=== PATIENT | male | born 1955 | race Caucasian/White ===

== ENCOUNTER 2019-09-30 15:32 | Outpatient (CLI) | payer BC, SELFPAY ==
--- NOTE | 2019-09-30 15:44 | USCV_ITS ---
DinoraSaúl nielsen Age: 64 Gender: M : 1955 Exam Date: 09/30/2019 15:53 Ordering Phys: Bridger Alfred MD Technologist: Varinder Gomez Exam Location[place] [facility] [place]ication: MURMUR BP: 148 / 80 HR: 90 Rhythm: Sinus Technical Quality: Good MEASUREMENTS (Male / Female) Normal Values 2D ECHO LV Diastolic Diameter PLAX 4.0 cm 4.2 - 5.9 / 3.9 - 5.3 cm LV Systolic Diameter PLAX 2.1 cm IVS Diastolic Thickness 1.1 cm 0.6 - 1.0 / 0.6 - 0.9 cm IVS Systolic Thickness 1.6 cm LVPW Diastolic Thickness 1.0 cm 0.6 - 1.0 / 0.6 - 0.9 cm LVPW Systolic Thickness 1.6 cm LVOT Diameter 2.0 cm LV Ejection Fraction 2D Teich 78.5 % LV Ejection Fraction MOD 2C 56.7 % LV Ejection Fraction 2C AL 56.6 % LA Diameter 3.6 cm LA Width 4.4 cm LA Height 5.2 cm RA Width 4.3 cm RA Height 4.7 cm Aorta at Sinotubular Diameter 2.5 cm M-MODE LV Diastolic Diameter MM 5.1 cm 4.2 - 5.9 / 3.9 - 5.3 cm LV Systolic Diameter MM 2.9 cm LV Ejection Fraction MM Teich 73.6 % IVS Diastolic Thickness MM 1.2 cm 0.6 - 1.0 / 0.6 - 0.9 cm IVS Systolic Thickness MM 1.5 cm LVPW Diastolic Thickness MM 1.3 cm 0.6 - 1.0 / 0.6 - 0.9 cm LVPW Systolic Thickness MM 1.8 cm RV Diastolic Diameter MM 1.7 cm Aortic Annulus Diameter 3.6 cm LA Ao Ratio MM 1.0 MV E Point Septal Separation 1.1 cm DOPPLER AV Peak Velocity 244.0 cm/s LVOT Peak Velocity 119.0 cm/s AV Area Cont Eq vti 1.6 cm squared AV Area Cont Eq pk 1.6 cm squared MV Area PHT 5.0 cm squared Mitral E to A Ratio 1.1 MV E' Velocity 9.0 cm/s Mitral E to MV E' Ratio 10.1 Mitral E to LV E' Lateral Ratio 10.1 Mitral E to LV E' Septal Ratio 10.1 TR Peak Velocity 221.0 cm/s TR Peak Gradient 19.6 mmHg TV Peak E Velocity 116.0 cm/s Right Atrial Pressure 3.0 mmHg Pulmonary Artery Systolic Pressu 22.5 mmHg FINDINGS Left Ventricle Normal left ventricular size, systolic function and mildly increased wall thickness, with no regional wall motion abnormalities. Left ventricular ejection fraction is estimated at 70 %. Normal diastolic function. Right Ventricle Normal right ventricular size and systolic function. Right ventricular systolic pressure 22.5 mmHg. Right Atrium Normal right atrial size. Left Atrium Normal left atrial size. Mitral Valve Moderate mitral annular calcification. No mitral valve stenosis. Trace mitral valve regurgitation. Aortic Valve Moderately thickened and calcified trileaflet aortic valve. Mild aortic valve stenosis, peak velocity 2.4 m/s, peak gradient 24 mmHg, mean gradient 10.8 mmHg, MYRNA 1.6 cm squared. No aortic valve regurgitation. Tricuspid Valve Structurally normal tricuspid valve. No tricuspid valve stenosis. Trace tricuspid valve regurgitation. Pulmonic Valve Pulmonic valve not well visualized. Trace pulmonary valve regurgitation. Pericardium No pericardial effusion. Aorta Normal size aortic root and proximal ascending aorta. CONCLUSIONS 1. Normal left ventricular size and systolic function with no regional wall motion abnormalities. Left ventricular ejection fraction is estimated at 70 %. Normal diastolic function. 2. Normal right ventricular size and systolic function. 3. Pulmonary artery pressure estimated at 23 mmHg. 4. Mild aortic valve stenosis, peak velocity 2.4 m/s, peak gradient 24 mmHg, mean gradient 10.8 mmHg, MYRNA 1.6 cm squared. 5. No prior similar studies to compare. Fatmata Mahoney MD (Electronically Signed) Final Date: 30 September 2019 17:14 S
== END 2019-09-30 15:33 | disposition home or self-care (01) ==
LOC: RAD 15:42
PROVIDERS: Family Provider Family Medicine; PCP Family Medicine; Visit Provider Family Medicine
DX: I08.3 Combined rheumatic disorders of mitral, aortic and tricuspid valves (principal); R01.1 Cardiac murmur, unspecified
CPT/HCPCS: 93306

== ENCOUNTER 2019-09-30 15:34 | Outpatient (REF) | payer SELFPAY ==
[2019-09-30 19:14] LABS: Chol HDL Ratio 4.54 mg/dL (1.0-5.00); Cholesterol 168 mg/dL (0-200); Glucose 252 mg/dL (65-115); HDL Cholesterol 37 mg/dL (60-100); LDL Cholesterol Calculated 89 mg/dL (50-129); LDL HDL Ratio 2.41 RATIO (0.00-3.22); Triglycerides 208 mg/dL (0-150)
[2019-09-30 21:24] LABS: Estmated Average Glucose 217; Hemoglobin A1C 9.2 % (4.0-6.0)
== END 2019-09-30 15:35 | disposition home or self-care (01) ==
LOC: LAB 15:34
PROVIDERS: Family Provider Family Medicine; PCP Family Medicine; Visit Provider Dermatology
DX: Z13.9 Encounter for screening, unspecified (principal)
CPT/HCPCS: 80061; 82947; 83036

== ENCOUNTER 2020-03-22 08:58 | Outpatient (CLI) | payer BC, SELFPAY ==
--- NOTE | 2020-03-22 09:02 | XR_ITS ---
WS: [id number] PROCEDURE: XR chest 2V* [id number] CLINICAL INFORMATION: CHEST PAIN, ATYPICAL, ABDOMINAL PAIN EPIGASTRIC COMPARISON: None. FINDINGS: Heart: Cardiomegaly. Aortic calcification. Lungs: Lungs are clear. No consolidation or pleural fluid. Moderate chronic emphysematous changes. Sl ight atelectasis left lower lobe. Bones: Hypertrophic changes thoracic spine. XR/XR chest 2V* [id number] IMPRESSION: Moderate chronic emphysematous changes. Slight atelectasis left lower lobe. No focal pneumonia.
== END 2020-03-22 08:59 | disposition home or self-care (01) ==
LOC: RADWPI 09:01
PROVIDERS: Family Provider Family Medicine; PCP Family Medicine; Visit Provider Family Medicine
DX: R10.13 Epigastric pain (principal); R07.89 Other chest pain; J98.11 Atelectasis
CPT/HCPCS: 71046

== ENCOUNTER 2020-03-29 07:12 | Outpatient (CLI) | payer BC, SELFPAY ==
--- NOTE | 2020-03-29 08:02 | US_ITS ---
WS: [id number] ULTRASOUND ABDOMEN LIMITED CLINICAL INFORMATION: ABDOMINAL PAIN, EPIGASTRIC COMPARISON: None. FINDINGS: Technically difficult examination due to body habitus. Liver Size: Upper limits of normal Craniocaudal length: 16.2 cm. Echogenicity: Normal. Surface nodularity: None. Mass (size and location): None. Bile ducts Intrahepatic ducts: Normal. Common bile duct diameter: 0.5 cm. Gallbladder Sludge/sludge ball Gallstones: None. Gallbladder sludge: Present Gallbladder wall thickenin.3 mm Pericholecystic fluid: None. Sonographic Keita sign: Absent. Pancreas Normal as visualized. Right kidney: Normal. Hydronephrosis: None. Size: 12.8 cm x 4.7 cm x 6.0 cm. Abdominal aorta and IVC Visualized portions are normal. Ascites: None. US/US gall bladder 30056 IMPRESSION: 1. Gallbladder sludge/sludge ball. Mild gallbladder wall thickening. Normal co mmon bile duct. 2. Mild hepatomegaly 3. No hydronephrosis in right kidney.
== END 2020-03-29 07:13 | disposition home or self-care (01) ==
LOC: RAD 07:14
PROVIDERS: PCP Family Medicine; Visit Provider Family Medicine
DX: R10.13 Epigastric pain (principal); R07.89 Other chest pain; R16.0 Hepatomegaly, not elsewhere classified
CPT/HCPCS: 76705

== ENCOUNTER 2020-04-14 06:46 | Outpatient (CLI) | payer BC, SELFPAY ==
[2020-04-14 06:54] VITALS: BMI 32.5
--- NOTE | 2020-04-14 06:55 | ECG_ITS ---
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 Interpretive Statements NAME OF STUDY: EXERCISE SESTAMIBI STRESS TEST INDICATION: [Chest Pain, ] Procedure: At the baseline, the blood pressure was 166/88 mmHg and heart rate of 89 Bpm. The electrocardiogram showed normal sinus rhythm, normal axis. Patient exercised for a total of 5 minutes and 16 seconds on Mars protocol. He achieved 7 mets and reached 93% (146bpm)of maximum predicted heart rate. Heart rate at the end of stress phase was 145 bpm, oxygen saturation 93% with a blood pressure of 215/87 mmHg. The EKG at peak infusion revealed sinus tachycardia with no significant ST T wave changes. The blood pressure at the end of recovery phase was 167/89 mmHg, oxygen saturation 98 % with a heart rate of 102 bpm. During recovery occasional PVCs were noted. Conclusions,: 1. Normal EKG response to exercise 2. No exercise-induced chest pain cardiac arrhythmias. 3. Hypertensive blood pressure response and heart rate response. 4. Sestamibi/sestamibi perfusion scan pending: See separate report. Electronically Signed On 04-18-2020 11:34:18 CDT by Ed Jean M.D. [email or web address]
--- NOTE | 2020-04-14 07:02 | NMCV_ITS ---
NM olive perf SPECT r/s* [id number] Saúl Farias Age: 65 Gender: M : 1955 Exam Date: 04/14/2020 07:49 Ordering Phys: Bridger Alfred MD Technologist: SHARI Murphy Exam Location: [facility] Indications: CHEST PAIN STRESS TEST Please see separate stress test report in [facility] for full findings IMAGE PROTOCOL Rest/Stress 1 Exercise Day Radiopharmaceutical Dose (mCi) Administration Site Administered by Rest: Tc-99m 10.7 IV SHARI Hicks Sestamibi Stress:Tc-99m 32.9 IV SHARI Murphy Sestamijonathan Rest: 14-Apr-2020 60 Discovery 630 Stress: 14-Apr-2020 15 Discovery 630 Radiopharmaceutical was injected at 88 % maximum heart rate. Images obtained in supine and prone position. SPECT RESULTS Technical Quality: Excellent Raw Data Analysis: Normal Image Corrections: No attenuation or motion correction applied Summed Stress Score: 0 Summed Rest Score: 0 Summed Difference Score: 0 PERFUSION FINDINGS Small area of slightly decreases uptake was noted in the mid and apical inferior wall region, with no significant reversibility. FUNCTIONAL RESULTS (calculated via Gated SPECT) Stress Image LV EF (%): 72 Stress EDV (mL):110 TID: 1 Stress ESV (mL):31 FUNCTIONAL FINDINGS: Segmental wall motion analysis revealing no gross wall motion abnormalities. IMPRESSIONS #1. Myocardial perfusion imaging revealing a small area of slightly decreased persistent tracer uptake in the inferior wall region, most likely represent attenuation artifacts. #2. Normal LV ejection fraction 72%. #3. LV wall motion analysis revealing no gross wall motion normalities. #4. Normal LV volume. No significant coronary ischemia, based on the above findings Dr Jose De Jesus Mckeon MD FAC (Electronically Signed) Final Date: 14 April 2020 17:45 S
[2020-04-14 07:21] LABS: Basophils % 0.5 %; Eosinophils # 0.1 10^3/uL (0.0-0.8); Eosinophils % 2.6 %; Hematocrit 42.4 % (42.0-52.0); Hemoglobin 14.5 g/dL (11.7-16.6); Lymphocytes # 1.3 10^3/uL (0.8-4.8); Lymphocytes % 30.9 %; Mean Corpuscular HGB Conc 34.2 g/dL (30.0-36.0); Mean Corpuscular Hemoglobin 32.6 pg (28.0-34.0); Mean Corpuscular Volume 95.3 fL (80-94); Mean Platelet Volume 11.7 fL (7.4-10.4); Monocytes # 0.4 10^3/uL (0.2-0.9); Monocytes % 9.3 %; Neutrophils # 2.44 10^3/uL (1.8-7.7); Neutrophils % 56.5 %; Nucleated Red Blood Cells % 0 %; Platelet Count 77 10^3/cmm (130-400); Red Blood Count 4.45 10^6/uL (4.1-5.3); Red Cell Distribution Width 12.4 % (12.1-15.1); White Blood Count 4.3 10^3/uL (4.0-10.0)
[2020-04-14 07:58] LABS: Alanine Aminotransferase 21 U/L (0-41); Albumin Level 3.7 g/dL (3.5-5.2); Alkaline Phosphatase 71 IU/L (40-130); Anion Gap 12.8 (5-19); Aspartate Amino Transferase 32 U/L (0-40); Blood Urea Nitrogen 10 mg/dL (8-23); Calcium 9.7 mg/dL (8.5-10.5); Carbon Dioxide 27 mmol/L (22-29); Chloride 102 mmol/L (98-107); Globulin 3.6 g/dL (1.3-4.6); Glomerular Filtration Rate 135.6 mL/min (90-130); Glucose 140 mg/dL (65-115); Lipase 41 U/L (13-60); Osmolality Calculated 284 mOsm/kg (285-295); Potassium 3.8 mmol/L (3.5-5.1); Sodium 138 mmol/L (136-145); Total Bilirubin 0.9 mg/dL (0.15-1.2); Total Protein 7.3 g/dL (6.6-8.7)
[2020-04-14 09:06] VITALS: BP 164/89; PULSE 102
== END 2020-04-14 06:47 | disposition home or self-care (01) ==
PROVIDERS: Surgery; PCP Family Medicine; Visit Provider Family Medicine
DX: R10.13 Epigastric pain (principal); R07.89 Other chest pain
CPT/HCPCS: 78452; 80053; 83690; 85025; 93017; A9500

== ENCOUNTER → 2020-04-15 09:13 | Outpatient (BNVA) | payer BC, SELFPAY | PROVIDERS: PCP Family Medicine; Visit Provider Internal Medicine | DX: Z12.31 Encounter for screening mammogram for malignant neoplasm of breast (principal) | CPT/HCPCS: 87635 ==

== ENCOUNTER 2020-04-20 10:12 | Day surgery (SDC) | payer BC, SELFPAY ==
[2020-04-19 10:29] VITALS: BMI 32.5
[2020-04-20] VITALS (8 sets, daily range): BP systolic 143–197; BP diastolic 76–99; PULSE 78–105; RESP 15–23; TEMP 36.3–36.7; O2SAT 92–98
[2020-04-20] MEDS: sodium chloride 0.9% 1,000 ML 30 ML IV (10:45)
--- NOTE | 2020-04-20 10:59 | W.PM.OPSUD ---
Surgery/Procedure H&P Update DATE OF PROCEDURE: April 20, 2020 DATE H&P PERFORMED: 04/12/20 H&P UPDATE INFORMATION: I have reviewed H&P completed within last 30 days, I have examined patient prior to procedure and No changes to prior documentation PREOP DIAGNOSIS: Cholelithiasis PLANNED PROCEDURE: Operation Date: 04/20/20 13:30 Proposed Procedures p Laparoscopic Cholecystectomy 65191 K82.9(Not Applicable) - Reji Rodríguez MD
[2020-04-20 11:03] LABS: Glucose Point of Care 158 mg/dL (70-110)
--- NOTE | 2020-04-20 11:03 | ANES.PREANE2 ---
Pre-Anesthetic Assessment Pre-Anesthetic Assessment: Height/Weight: Height 1.73 m Weight 97.069 kg Temp Pulse Resp BP Pulse Ox 97.8 F 82 18 167/76 97 04/20/20 10:33 04/20/20 10:33 04/20/20 10:33 04/20/20 10:33 04/20/20 10:33 Preop Diagnosis: Cholelithiasis Proposed Procedure: Operation Date: 04/20/20 13:30 Proposed Procedures p Laparoscopic Cholecystectomy 29439 K82.9(Not Applicable) - Reji Rodríguez MD Familial anesthetic complications: None Last intake: Intake Last Liquid Date 04/19/20 Last Liquid Time 17:00 Last Solid Date 04/19/20 Last Solid Time 17:00 Social: Social History: No alcohol and No tobacco Exam: Pre-Anes Outpt Exam: alert, oriented x 3, clear to auscultation bilaterally and regular rate & rhythm Airway: Cervical ROM: WNL MP: 4 Dentition: Full Pulmonary: Pulmonary: None reported : Comments: kidney stones GI: GI: GERD (prilosec) Metabolic: Metabolic: DM and Morbid obesity Anesthetic Plan: ASA status: 2 Anesthesia: General Risk of > 500 ml blood loss (7ml/kg in children): No PFSH Anesthesia PFSH: Medical History Diabetes mellitus H/O renal calculi Surgical History H/O circumcision H/O skin graft left foot H/O umbilical hernia repair H/O vasectomy Family History Other CAD (coronary artery disease) Cancer Diabetes Hypertension Denies family history of Anesthesia complication Bleeding disorder Social History Smoking and tobacco status: former smoker Alcohol intake: never Household members: spouse Marital status: Current occupational status: retired History of recent travel: No Data Anesthesia Other Labs: Laboratory Results - last 48 hr 04/20/20 10:59 POC Glucose 158 Cardiac Studies: No Data to Display
--- NOTE | 2020-04-20 12:42 | PM.OP ---
Operative Report Date of procedure: April 20, 2020 Pre-op Diagnosis: Cholelithiasis Post-op Diagnosis: Cholelithiasis Chronic cholecystitis Macronodular liver with multiple dilated veins near the gallbladder neck Procedure Done: Laparoscopic cholecystectomy Laparoscopic liver biopsy Pathology: Gallbladder Liver biopsy Surgeon: Reji Rodríguez Anesthesia: General Estimated blood loss (mL): 100 Condition: stable Disposition: PACU Procedure: The patient was taken to the operating room and was intubated under general anesthesia. After the antibiotic had been administered, the abdomen was prepped and draped in a sterile manner. Using a #15 blade, a 1 centimeter infraumbilical curvilinear incision was made and using an open Leticia technique the peritoneal cavity was entered. A 10 millimeter port was placed and 15 millimeters of pneumoperitoneum was created. A 10 millimeter, 30 degrees scope was then introduced. Three 5 millimeter ports were placed in the epigastric, midclavicular and the anterior axillary line two fingerbreadths below the costal margin on the right side under the direct visualization. There was bleeding noted in the umbilicus and therefore a 5 mm camera was placed and examination of the umbilical port revealed omentum adherent to the abdominal wall from prior hernia repair and there was a arterial bleeder noted which was controlled with 10 mm clips. Ratcheted forceps were introduced into the lateral most port and was used to retract the fundus of the gallbladder cephalad and using forceps the infundibulum of the gallbladder was retracted laterally. Using L-hook cautery the peritoneum overlying the Calot's triangle was opened medially and laterally until the cystic duct and the cystic artery were skeletonized. There was multiple dilated veins and there was generalized oozing which was controlled with cautery, dissection was carried along the body of the gallbladder and after ensuring critical view of safety, 4 clips applied on the cystic duct and 3 clips applied on the cystic artery and cut leaving, 3 clips on the remaining portion of the duct and 2 clips on the remaining portion of the artery. The rest of the gallbladder was dissected off the liver using L-hook cautery. There was no bleeding or bile leaking noted from the gallbladder fossa and the clips appeared to be in place. Since there was significant oozing from the gallbladder fossa a 4 x 8 cm Surgicel was placed. Using electrocautery a 2 cm segment of liver was obtained due to the macronodular liver noted during surgery which was concerning for cirrhosis. An EndoCatch bag was introduced to remove the gallbladder and the liver specimen. All the ports were removed under direct visualization and there was no bleeding noted from the port sites. The fascia of the umbilicus was closed using [id number] 0 Vicryl sutures and the subcutaneous tissue was approximated using 3-0 Vicryl sutures. The skin at all four ports were closed using 4-0 Monocryl and Dermabond. A total of 10 millimeters of 0.5% Marcaine was infiltrated around the port sites. The patient was stable throughout the procedure.
[2020-04-20] MEDS: labetalol 5 mg/mL SDV 20mL IVP (12:52)
--- NOTE | 2020-04-20 12:56 | SUR.PHASEI ---
1249 PATIENT TO PACU FROM OR. RR EVEN AND UNLABORED. SPO2 96% ON SIMPLE MASK AT 8L. 3 INCISIONS TO ABDOMEN, CDI.
--- NOTE | 2020-04-20 13:15 | SUR.PHASEI ---
1310 PATIENT TO OPS. DENIES PAIN OR NAUSEA. 3 INCISION TO ABDOMEN, CDI.
[2020-04-20] MEDS: HYDROcodone-acetaminophen 5-325 mg Tablet 1 TAB PO (13:40)
--- NOTE | 2020-04-20 16:00 | ANE.PACU2 ---
Inpatient post-anesthesia follow up: Airway intact: Yes Vital signs: Temperature 98.0 F Pulse Rate 78 Respiratory Rate 18 Blood Pressure 144/76 Pulse Oximetry 93 Oxygen Delivery Me thod Room Air Oxygen Flow Rate 8 Fraction of Inspir ed Oxygen Hydration adequate: Yes Nausea and vomiting: No Pain level: 2 Mental status: Baseline
== END 2020-04-20 14:00 | disposition home or self-care (01) ==
PROVIDERS: PCP Family Medicine; Visit Provider Surgery
PROC: 0FT44ZZ Resection of Gallbladder, Percutaneous Endoscopic Approach (ICD-10-PCS; CPT 47562; principal; 2020-04-20 12:05)
DX: K81.1 Chronic cholecystitis (principal); K74.60 Unspecified cirrhosis of liver; E11.9 Type 2 diabetes mellitus without complications; E66.01 Morbid (severe) obesity due to excess calories; Z68.32 Body mass index [BMI] 32.0-32.9, adult; Z87.891 Personal history of nicotine dependence; Z79.84 Long term (current) use of oral hypoglycemic drugs
CPT/HCPCS: 47000; 47562; 12345; 36416; 82962; 88304; 88307; J0131; J0690; J2405; J2704; J2710; J3010; J3490; J7030

== ENCOUNTER → 2020-06-03 09:36 | Outpatient (BNVA) | payer BC, SELFPAY | PROVIDERS: PCP Family Medicine; Visit Provider Surgery | DX: Z12.11 Encounter for screening for malignant neoplasm of colon (principal) | CPT/HCPCS: 87635 ==

== ENCOUNTER 2020-06-07 06:52 | Day surgery (SDC) | payer BC, SELFPAY ==
[2020-06-07 07:02] VITALS: BP 157/82; PULSE 95; RESP 18; TEMP 36.3; O2SAT 98
[2020-06-07] MEDS: sodium chloride 0.9% 1,000 ML 30 ML IV (07:21)
[2020-06-07 07:23] LABS: Glucose Point of Care 140 mg/dL (70-110)
--- NOTE | 2020-06-07 07:23 | ANES.PREANE2 ---
Pre-Anesthetic Assessment Pre-Anesthetic Assessment: Height/Weight: Height 1.73 m Weight 97.069 kg Temp Pulse Resp BP Pulse Ox 97.3 F L 95 18 157/82 98 06/07/20 07:02 06/07/20 07:02 06/07/20 07:02 06/07/20 07:02 06/07/20 07:02 Preop Diagnosis: screening Proposed Procedure: Operation Date: 06/07/20 08:00 Proposed Procedures p EGD 47710 90200 R10.12 Z12.11(Not Applicable) - Reji Rodríguez MD s Colonoscopy 33604 93726 R10.12 Z12.11(Not Applicable) - Reji Rodríguez MD Familial anesthetic complications: None Was Beta Amanda taken within 24 hours: N/A Last intake: Intake Last Liquid Date 06/06/20 Last Liquid Time 20:00 Last Solid Date 06/05/20 Last Solid Time 20:00 Social: Social History: No alcohol and No tobacco Exam: Pre-Anes Outpt Exam: alert, oriented x 3, clear to auscultation bilaterally and regular rate & rhythm Airway: Cervical ROM: WNL MP: 2 Dentition: Full Hepatic: Hepatic: Cirrohsis (?seen on imaging) GI: GI: GERD Metabolic: Metabolic: DM Anesthetic Plan: ASA status: 2 Anesthesia: MAC Risk of > 500 ml blood loss (7ml/kg in children): No Meds/Allergies Current Medications: Current Medications Generic Name Dose Route Start Last Admin Trade Name Freq PRN Reason Stop Dose Admin Sodium Chloride 1,000 mls @ 30 ml s/hr 06/07/20 07:15 06/07/20 07:21 Sodium Chloride 0.9% IV 30 mls/hr .Q24H JAMES Administration PFSH Anesthesia PFSH: Medical History (Updated 05/10/20 @ 09:56 by Reji Rodríguez MD) Diabetes mellitus H/O renal calculi Macronodular cirrhosis Surgical History (Updated 05/10/20 @ 09:56 by Reji Rodríguez MD) H/O circumcision H/O skin graft left foot H/O umbilical hernia repair H/O vasectomy Status post laparoscopic cholecystectomy (04/20/20) with liver biopsy Family History Other CAD (coronary artery disease) Cancer Diabetes Hypertension Denies family history of Anesthesia complication Bleeding disorder Social History Smoking and tobacco status: former smoker Alcohol intake: never Household members: spouse Marital status: Current occupational status: retired History of recent travel: No Data Anesthesia Other Labs: Laboratory Results - last 48 hr 06/07/20 07:18 POC Glucose 140 Cardiac Studies: No Data to Display
--- NOTE | 2020-06-07 08:10 | P.HP_ITS ---
Same Day Surgery H&P Indication for Procedure/HPI DATE OF PROCEDURE: June 07, 2020 CHIEF COMPLAINT/INDICATIONFOR SURGICAL PROCEDURE: cirrhosis and colonoscopy PREOP DIAGNOSIS: screening PLANNED PROCEDRUE: Operation Date: 06/07/20 08:00 Proposed Procedures p EGD 21764 17823 R10.12 Z12.11(Not Applicable) - Reji Rodríguez MD s Colonoscopy 63149 31861 R10.12 Z12.11(Not Applicable) - Reji Rodríguez MD Medications/Allergies* Home Medications Medication Instructions Recorded Confirmed Type glimepiride 2 mg tablet 2 mg PO BID tab 04/12/20 06/07/20 History metformin 1,000 mg tablet 1,000 mg PO BID 04/12/20 06/07/20 History omeprazole 20 mg capsule,delayed 20 mg PO BID 04/12/20 06/07/20 History release Allergies/Adverse Reactions Allergy/AdvReac Type Severity Reaction Status Date / Time No Known Allergies Allergy Verified 06/07/20 07:12 Current Medications: Generic Name Dose Route Start Last Admin Trade Name Freq PRN Reason Stop Dose Admin Sodium Chloride 1,000 mls @ 30 mls/hr 06/07/20 07:15 06/07/20 07:21 Sodium Chloride 0.9% IV 30 mls/hr .Q24H JAMES Administration Pertinent History/Comorbid Conditions* Medical History (Updated 05/10/20 @ 09:56 by Reji Rodríguez MD) Diabetes mellitus H/O renal calculi Macronodular cirrhosis Surgical History (Updated 05/10/20 @ 09:56 by Reji Rodríguez MD) H/O circumcision H/O skin graft left foot H/O umbilical hernia repair H/O vasectomy Status post laparoscopic cholecystectomy (04/20/20) with liver biopsy Family History (Updated 04/12/20 @ 14:53 by Sugar Dill LPN) Diabetes CAD (coronary artery disease) Cancer Hypertension Denies family history of Anesthesia complication Bleeding disorder Social History Smoking and tobacco status: former smoker Alcohol intake: never Household members: spouse Marital status: Current occupational status: retired History of recent travel: No Pertinent Exam Findings alert, oriented x 3 and regular rate & rhythm Recommendations Surgery/Procedure today Coding Level of Care Code Acute 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
[2020-06-07 09:05] VITALS: BP 148/81; PULSE 74; RESP 18; TEMP 36.1; O2SAT 99
--- NOTE | 2020-06-07 09:30 | ANE.PACU2 ---
Inpatient post-anesthesia follow up: Airway intact: Yes Vital signs: Temperature 97 F Pulse Rate 74 Respiratory Rate 18 Blood Pressure 148/81 Pulse Oximetry 99 Oxygen Delivery Me thod Room Air Oxygen Flow Rate Fraction of Inspir ed Oxygen Hydration adequate: Yes Nausea and vomiting: No Pain level: 1 Mental status: Baseline
== END 2020-06-07 09:38 | disposition home or self-care (01) ==
PROVIDERS: PCP Family Medicine; Visit Provider Surgery
PROC: 0DJ08ZZ Inspection of Upper Intestinal Tract, Via Natural or Artificial Opening Endoscopic (ICD-10-PCS; CPT 43235; principal; 2020-06-07 08:00)
PROC: 0DJD8ZZ Inspection of Lower Intestinal Tract, Via Natural or Artificial Opening Endoscopic (ICD-10-PCS; CPT 45378; 2020-06-07 08:00)
DX: Z12.11 Encounter for screening for malignant neoplasm of colon (principal); I85.00 Esophageal varices without bleeding; K29.70 Gastritis, unspecified, without bleeding; D12.0 Benign neoplasm of cecum; D12.4 Benign neoplasm of descending colon; D12.3 Benign neoplasm of transverse colon; K57.30 Diverticulosis of large intestine without perforation or abscess without bleeding; K64.8 Other hemorrhoids; E11.9 Type 2 diabetes mellitus without complications; Z79.84 Long term (current) use of oral hypoglycemic drugs
CPT/HCPCS: 12345; 36416; 43235; 45385; 82962; 88305; J2704; J3010; J7030

== ENCOUNTER → 2021-08-10 14:57 | Outpatient (BNVA) | payer MEDICARE, BC, SELFPAY | PROVIDERS: PCP Family Medicine; Visit Provider Surgery | DX: K63.5 Polyp of colon (principal) | CPT/HCPCS: 87635 ==

== ENCOUNTER 2021-08-16 07:48 | Day surgery (SDC) | payer MEDICARE, SELFPAY ==
[2021-08-14 10:28] VITALS: BMI 33.4
--- NOTE | 2021-08-16 08:00 | ANES.PREANE2 ---
Pre-Anesthetic Assessment Pre-Anesthetic Assessment: Height/Weight: Height 1.73 m Weight 99.79 kg Preop Diagnosis: screening Proposed Procedure: Operation Date: 08/16/21 09:15 Proposed Procedures p Colonoscopy 14007 Z12.11(Not Applicable) - Reji Rodríguez MD Familial anesthetic complications: None Was Beta Amanda taken within 24 hours: N/A Was Clonidine taken within 24 hours: N/A Last intake: > 8 hrs Social: Social History: No alcohol and No tobacco Exam: Pre-Anes Outpt Exam: alert, oriented x 3, clear to auscultation bilaterally and regular rate & rhythm Airway: MP: 4 Dentition: Full Hepatic: Comments: cirrhosis found during gallbladder surgery Metabolic: Metabolic: DM Anesthetic Plan: ASA status: 3 Anesthesia: MAC Risk of > 500 ml blood loss (7ml/kg in children): No Other Pertinent Information: patient would like local anesthesia for IV Placement PFSH Anesthesia PFSH: Medical History (Updated 06/16/21 @ 08:51 by Reji Rodríguez MD) Colon polyps Diabetes mellitus Esophageal varices H/O renal calculi Macronodular cirrhosis Surgical History H/O circumcision H/O esophagogastroduodenoscopy (06/07/20) H/O skin graft left foot H/O umbilical hernia repair H/O vasectomy Status post colonoscopy with polypectomy (06/07/20) Status post laparoscopic cholecystectomy (04/20/20) with liver biopsy Family History Other CAD (coronary artery disease) Cancer Diabetes Hypertension Denies family history of Anesthesia complication Bleeding disorder Social History Smoking and tobacco status: former smoker Alcohol intake: never Household members: spouse Marital status: Current occupational status: retired History of recent travel: No Data Anesthesia Cardiac Studies: Echocardiogram Ultrasound 09/30/19 Sestamibi Stress Test (Cardiology) 04/14/20
[2021-08-16 08:27] VITALS: BP 168/78; PULSE 73; RESP 18; TEMP 36.2; O2SAT 99
[2021-08-16] MEDS: sodium chloride 0.9% 1,000 ML 30 ML IV (08:45)
[2021-08-16] MEDS: lidocaine 1% INJ 20 mL INTRADERMA (08:46)
--- NOTE | 2021-08-16 09:03 | W.PM.OPSFHP ---
Same Day Surgery H&P Indication for Procedure/HPI DATE OF PROCEDURE: August 16, 2021 CHIEF COMPLAINT/INDICATIONFOR SURGICAL PROCEDURE: colon polyps PREOP DIAGNOSIS: diagnostic PLANNED PROCEDRUE: Operation Date: 08/16/21 09:15 Proposed Procedures p Colonoscopy 33349 Z12.11(Not Applicable) - Reji Rodríguez MD Medications/Allergies* Home Medications Medication Instructions Recorded Confirmed Type glimepiride 2 mg tablet 2 mg PO BID tab 04/12/20 08/14/21 History metformin 1,000 mg tablet 1,000 mg PO BID 04/12/20 08/14/21 History Allergies/Adverse Reactions Allergy/AdvReac Type Severity Reaction Status Date / Time No Known Allergies Allergy Verified 08/16/21 08:16 Current Medications: Generic Name Dose Route Start Last Admin Trade Name Freq PRN Reason Stop Dose Admin Sodium Chloride 1,000 mls @ 30 mls/hr 08/16/21 08:30 08/16/21 08:45 Sodium Chloride 0.9% IV 08/17/21 08:29 30 mls/hr .Q24H JAMES Administration Lidocaine HCl 1 ml 08/16/21 08:21 08/16/21 08:46 Lidocaine 1% Inj 20 Ml INTRADERMA 1 ml PRN PRN Administration IV start Pertinent History/Comorbid Conditions* Medical History (Updated 06/16/21 @ 08:51 by Reji Rodríguez MD) Colon polyps Diabetes mellitus Esophageal varices H/O renal calculi Macronodular cirrhosis Surgical History (Updated 06/07/20 @ 09:16 by Reji Rodríguez MD) H/O circumcision H/O esophagogastroduodenoscopy (06/07/20) H/O skin graft left foot H/O umbilical hernia repair H/O vasectomy Status post colonoscopy with polypectomy (06/07/20) Status post laparoscopic cholecystectomy (04/20/20) with liver biopsy Family History (Updated 04/12/20 @ 14:53 by Sugar Dill LPN) Diabetes CAD (coronary artery disease) Cancer Hypertension Denies family history of Anesthesia complication Bleeding disorder Social History Smoking and tobacco status: former smoker Alcohol intake: never Household members: spouse Marital status: Current occupational status: retired History of recent travel: No Pertinent Exam Findings alert, oriented x 3 and regular rate & rhythm Recommendations Surgery/Procedure today Coding Level of Care Code Acute 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
--- NOTE | 2021-08-16 09:39 | PC.NURSE ---
clip and ink placed in colon at 55cm
[2021-08-16 09:50] VITALS: BP 102/63; PULSE 77; RESP 16; TEMP 36.3; O2SAT 96
[2021-08-16 09:57] VITALS: BP 121/65; PULSE 82; RESP 18; O2SAT 96
--- NOTE | 2021-08-16 13:52 | ANE.PACU2 ---
Inpatient post-anesthesia follow up: Airway intact: Yes Vital signs: Temperature 97.4 F Pulse Rate 82 Respiratory Rate 18 Blood Pressure 121/65 Pulse Oximetry 96 Oxygen Delivery Me thod Room Air Oxygen Flow Rate Fraction of Inspir ed Oxygen Hydration adequate: Yes Nausea and vomiting: No Pain level: 2 Mental status: Baseline
== END 2021-08-16 10:25 | disposition home or self-care (01) ==
PROVIDERS: PCP Family Medicine; Visit Provider Surgery
PROC: 0DJD8ZZ Inspection of Lower Intestinal Tract, Via Natural or Artificial Opening Endoscopic (ICD-10-PCS; CPT 45378; principal; 2021-08-16 09:15)
DX: Z12.11 Encounter for screening for malignant neoplasm of colon (principal); Z86.010 Personal history of colon polyps; D12.2 Benign neoplasm of ascending colon; D12.5 Benign neoplasm of sigmoid colon; D12.3 Benign neoplasm of transverse colon; K57.30 Diverticulosis of large intestine without perforation or abscess without bleeding; K64.8 Other hemorrhoids; E11.9 Type 2 diabetes mellitus without complications; Z79.84 Long term (current) use of oral hypoglycemic drugs; Z82.49 Family history of ischemic heart disease and other diseases of the circulatory system; Z83.3 Family history of diabetes mellitus; Z87.891 Personal history of nicotine dependence
CPT/HCPCS: 45380; 45385; 88305; J2704; J7030

== ENCOUNTER 2021-11-15 12:30 | Outpatient (CLI) | payer MEDICARE, SELFPAY ==
--- NOTE | 2021-11-15 12:44 | CT_ITS ---
WS: [id number] CT ABDOMEN AND PELVIS WITH CONTRAST HISTORY: Left-sided abdominal pain. Abnormal findings on colonoscopy. TECHNIQUE: Imaging performed of the abdomen and pelvis with IV contrast. Single phase imaging of the abdomen. Coronal and sagittal reformats are submitted. All CT scans at [facility] use at [address] one of these dose optimization techniques: automated exposure control; mA and/or kV adjustment per patient size (includes targeted exams where dose is matched to clinical indication); or iterative re construction. IV CONTRAST: Omnipaque 300; 95 mL IV. Oral contrast: Yes. DLP: 1218.53 mGy.cm COMPARISON: 05/01/2012 Lower thorax: Small layering RIGHT pleural effusion. Lungs are clear. Normal size heart. Small perica rdial lymph node. No hiatal hernia. Paraesophageal varices are present. Liver/biliary system: Cirrhotic appearance of the liver. Enlarged caudate lobe. The LEFT and RIGHT he patic lobes are smaller caliber. Nodularity of the surface of the liver. No hepatic mass identified o r abnormal enhancement. There is no very small caliber portal vein. The main portal vein is small cipriano iber. The RIGHT and LEFT portal veins may be occluded. No significant enhancement of adjacent varice s at the harmony hepatis. Gallbladder: Status post cholecystectomy. Pancreas: Normal size pancreas and pancreatic duct. No adjacent inflammation. Spleen: Spleen is enlarged extending over length of 15.2 cm. Massive splenic varices are noted. There are extensive spleen or renal varices identified. Splenic vein is dilated. Adrenal glands: Normal. Right kidney: Nonobstructing 2 mm calcification upper pole. Left kidney: Normal size kidney with extensive splenorenal varices noted surrounding the mid and uppe r kidney. No obstruction or solid mass. Aorta: Mild atherosclerosis with no aneurysm. Good enhancement of the proximal celiac axis and SMA. Lymphadenopathy: None. Free fluid: None. GI tract: No obstruction of the GI tract. Stomach is normally distended. No small bowel obstruction. Normal appendix. Numerous small diverticula in the descending and sigmoid colon. Abdominal wall: Small umbilical hernia. Pelvis: No free fluid or adenopathy within the pelvis. Bones: 2 mm anterolisthesis of L5. CT/CT abdomen pelvis w con* [id number] IMPRESSION: 1. Cirrhosis with portal venous hypertension. 2. Splenomegaly with numerous dilated splenorenal varices. 3. Very small caliber portal vein. Suspect partial occlusion of the portal vei n. 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 4. Distal colonic diverticulosis without acute diverticulitis. 5. Normal appendix. 6. Prior cholecystectomy. 7. Small layering RIGHT pleural effusion.
[2021-11-15] MEDS: iohexol 300 mg/mL 50 mL Btl PO (13:16)
[2021-11-15] MEDS: iohexol 300 mg/mL 100 mL Btl IV (14:34)
[2021-11-15 14:35] LABS: Blood Urea Nitrogen 14 mg/dL (8-23); Glomerular Filtration Rate 84.7 mL/min (90-130)
== END 2021-11-15 12:31 | disposition home or self-care (01) ==
LOC: RAD 12:32
PROVIDERS: PCP Family Medicine; Visit Provider Surgery
DX: K56.699 Other intestinal obstruction unspecified as to partial versus complete obstruction (principal); K74.69 Other cirrhosis of liver; R16.1 Splenomegaly, not elsewhere classified; K57.30 Diverticulosis of large intestine without perforation or abscess without bleeding; J90 Pleural effusion, not elsewhere classified; K76.6 Portal hypertension; Z90.49 Acquired absence of other specified parts of digestive tract
CPT/HCPCS: 74177; 82565; 84520

== ENCOUNTER 2021-11-22 05:41 | Day surgery (SDC) | payer MEDICARE, SELFPAY ==
[2021-11-20 14:15] VITALS: BMI 31.9
[2021-11-22 06:11] VITALS: BP 146/78; PULSE 84; RESP 18; TEMP 36.4; O2SAT 98
[2021-11-22] MEDS: sodium chloride 0.9% 1,000 ML 30 ML IV (06:16)
[2021-11-22] MEDS: lidocaine 1% INJ 20 mL INTRADERMA (06:16)
--- NOTE | 2021-11-22 06:53 | ANES.PREANE2 ---
Pre-Anesthetic Assessment Height/Weight: Height 1.73 m Weight 95.254 kg Temp Pulse Resp BP Pulse Ox 97.6 F 84 18 146/78 98 11/22/21 06:11 11/22/21 06:11 11/22/21 06:11 11/22/21 06:11 11/22/21 06:11 Preop Diagnosis: diagnostic Operation Date: 11/22/21 07:00 Proposed Procedures p Sigmoidoscopy 00860 K56.699(Not Applicable) - Reji Rodríguez MD Familial anesthetic complications: none Was Beta Amanda taken within 24 hours: N/A Was Clonidine taken within 24 hours: N/A Last intake: Intake Last Liquid Date 11/21/21 Last Liquid Time 23:30 Last Solid Date 11/20/21 Last Solid Time 17:00 Social No alcohol and No tobacco Exam alert, oriented x 3, clear to auscultation bilaterally and regular rate & rhythm Airway Submandibular: within normal limits Cervical ROM: within normal limits Mallampati: Class II Dentition: full History/ROS Other Pulmonary None reported CV/HEM Murmur None reported Hepatic Cirrhosis GI None reported Metabolic Diabetes Mellitus Musc/skel Lower Back Pain Neuropsych None reported Anesthetic Plan ASA status: 2 Anesthesia: MAC Risk of > 500 ml blood loss (7ml/kg in children): No Medications/Allergies Home Medications Medication Instructions Recorded Confirmed Last Taken Type glimepiride 2 mg tablet 2 mg PO BID tab 04/12/20 11/22/21 11/21/21 History metformin 1,000 mg tablet 1,000 mg PO BID 04/12/20 11/22/21 11/21/21 History myutyxbfrnov-nkfegacv-olobpf 1 tab PO DAILY 11/20/21 11/22/21 11/21/21 History tablet (Multivitamin 50 Plus) Allergies Allergy/AdvReac Type Severity Reaction Status Date / Time No Known Allergies Allergy Verified 11/20/21 14:17 Current Medications Generic Name Dose Route Start Last Admin Trade Name Freq PRN Reason Stop Dose Admin Sodium Chloride 1,000 mls @ 30 mls/hr 11/22/21 06:00 11/22/21 06:16 Sodium Chloride 0.9% IV 11/23/21 05:59 30 mls/hr .Q24H JAMES Administration Lidocaine HCl 1 ml 11/22/21 06:10 11/22/21 06:16 Lidocaine 1% Inj 20 Ml INTRADERMA 1 ml PRN PRN Administration IV START PFSH Anesthesia Medical History (Updated 08/22/21 @ 13:52 by Anu Vega RN) Colon polyps Diabetes mellitus Esophageal varices H/O renal calculi Macronodular cirrhosis Surgical History H/O circumcision H/O esophagogastroduodenoscopy (06/07/20) H/O skin graft left foot H/O umbilical hernia repair H/O vasectomy Status post colonoscopy with polypectomy (06/07/20) Status post colonoscopy with polypectomy (08/16/21) Status post laparoscopic cholecystectomy (04/20/20) with liver biopsy Family History Other CAD (coronary artery disease) Cancer Diabetes Hypertension Denies family history of Anesthesia complication Bleeding disorder Social History Smoking and tobacco status: former smoker Alcohol intake: never Household members: spouse Marital status: Current occupational status: retired History of recent travel: No Data Anesthesia Cardiac Studies: Echocardiogram Ultrasound 09/30/19 Sestamibi Stress Test (Cardiology) 04/14/20
--- NOTE | 2021-11-22 06:58 | W.PM.OPSFHP ---
Same Day Surgery H&P Indication for Procedure/HPI DATE OF PROCEDURE: November 22, 2021 CHIEF COMPLAINT/INDICATIONFOR SURGICAL PROCEDURE: colon polyp PREOP DIAGNOSIS: diagnostic PLANNED PROCEDURE: Operation Date: 11/22/21 07:00 Proposed Procedures p Sigmoidoscopy 52264 K56.699(Not Applicable) - Reji Rodríguez MD Medications/Allergies* Home Medications Medication Instructions Recorded Confirmed Type glimepiride 2 mg tablet 2 mg PO BID tab 04/12/20 11/22/21 History metformin 1,000 mg tablet 1,000 mg PO BID 04/12/20 11/22/21 History suxfuggsacrb-dtrihcwr-wurcvy 1 tab PO DAILY 11/20/21 11/22/21 History tablet (Multivitamin 50 Plus) Allergies/Adverse Reactions Allergy/AdvReac Type Severity Reaction Status Date / Time No Known Allergies Allergy Verified 11/20/21 14:17 Current Medications: Generic Name Dose Route Start Last Admin Trade Name Freq PRN Reason Stop Dose Admin Sodium Chloride 1,000 mls @ 30 mls/hr 11/22/21 06:00 11/22/21 06:16 Sodium Chloride 0.9% IV 11/23/21 05:59 30 mls/hr .Q24H JAMES Administration Lidocaine HCl 1 ml 11/22/21 06:10 11/22/21 06:16 Lidocaine 1% Inj 20 Ml INTRADERMA 1 ml PRN PRN Administration IV START Pertinent History/Comorbid Conditions* Medical History (Updated 06/16/21 @ 08:51 by Reji Rodríguez MD) Colon polyps Diabetes mellitus Esophageal varices H/O renal calculi Macronodular cirrhosis Surgical History (Updated 08/16/21 @ 09:47 by Reji Rodríguez MD) H/O circumcision H/O esophagogastroduodenoscopy (06/07/20) H/O skin graft left foot H/O umbilical hernia repair H/O vasectomy Status post colonoscopy with polypectomy (06/07/20) Status post colonoscopy with polypectomy (08/16/21) Status post laparoscopic cholecystectomy (04/20/20) with liver biopsy Family History (Updated 04/12/20 @ 14:53 by Sugar Dill LPN) Diabetes CAD (coronary artery disease) Cancer Hypertension Denies family history of Anesthesia complication Bleeding disorder Social History Smoking and tobacco status: former smoker Alcohol intake: never Household members: spouse Marital status: Current occupational status: retired History of recent travel: No Pertinent Exam Findings alert, oriented x 3 and regular rate & rhythm Recommendations Surgery/Procedure today Coding Level of Care Code Acute 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
--- NOTE | 2021-11-22 07:33 | ANE.PACU2 ---
Inpatient post-anesthesia follow up: Airway intact: Yes Vital signs: Temperature 97.6 F Pulse Rate 84 Respiratory Rate 18 Blood Pressure 146/78 Pulse Oximetry 98 Oxygen Delivery Me thod Room Air Oxygen Flow Rate Fraction of Inspir ed Oxygen Hydration adequate: Yes Nausea and vomiting: No Pain level: 1 Mental status: Baseline
[2021-11-22 07:34] VITALS: BP 123/77; PULSE 90; RESP 18; TEMP 36.5; O2SAT 100
[2021-11-22 07:45] VITALS: BP 141/88; PULSE 81; RESP 18; TEMP 36.2; O2SAT 98
== END 2021-11-22 08:04 | disposition home or self-care (01) ==
PROVIDERS: PCP Family Medicine; Visit Provider Surgery
PROC: 0DJD8ZZ Inspection of Lower Intestinal Tract, Via Natural or Artificial Opening Endoscopic (ICD-10-PCS; CPT 45330; principal; 2021-11-22 07:00)
DX: K56.699 Other intestinal obstruction unspecified as to partial versus complete obstruction (principal); K57.30 Diverticulosis of large intestine without perforation or abscess without bleeding; K64.8 Other hemorrhoids; D12.5 Benign neoplasm of sigmoid colon; Z79.84 Long term (current) use of oral hypoglycemic drugs; Z87.891 Personal history of nicotine dependence; Z82.49 Family history of ischemic heart disease and other diseases of the circulatory system; Z83.3 Family history of diabetes mellitus
CPT/HCPCS: 45338; 88305; J0330; J2704; J3490; J7030

== ENCOUNTER → 2021-12-05 13:23 | Outpatient (BNVA) | payer MEDICARE, SELFPAY | PROVIDERS: PCP Family Medicine; Visit Provider Surgery | DX: Z09 Encounter for follow-up examination after completed treatment for conditions other than malignant neoplasm (principal); D12.6 Benign neoplasm of colon, unspecified | CPT/HCPCS: 99212 ==

== ENCOUNTER → 2022-01-25 16:33 | Outpatient (BNVA) | payer MEDICARE, SELFPAY | PROVIDERS: PCP Family Medicine; Visit Provider Family Medicine | DX: K74.60 Unspecified cirrhosis of liver (principal); E78.5 Hyperlipidemia, unspecified; E11.9 Type 2 diabetes mellitus without complications | CPT/HCPCS: 80053; 80061; 80074; 83036 ==

== ENCOUNTER → 2022-05-10 12:10 | Outpatient (BNVA) | payer MEDICARE, SELFPAY | PROVIDERS: PCP Family Medicine; Visit Provider Family Medicine | DX: F32.A Depression, unspecified (principal); K63.5 Polyp of colon; I85.00 Esophageal varices without bleeding; K74.60 Unspecified cirrhosis of liver; E11.9 Type 2 diabetes mellitus without complications; R01.1 Cardiac murmur, unspecified; Z00.00 Encounter for general adult medical examination without abnormal findings | CPT/HCPCS: 80053; 83036 ==

== ENCOUNTER 2022-06-13 07:18 | Outpatient (CLI) | payer MEDICARE, SELFPAY ==
--- NOTE | 2022-06-13 07:15 | USCV_ITS ---
Saúl Farias Age: 67 Gender: M : 1955 Exam Date: 06/13/2022 07:52 Ordering Phys: Bridger Alfred MD Technologist: MELBA Exam Location: [facility] [place] Indication: WORSENING HEART MURMUR BP: 154 / 72 HR: 66 Rhythm: Sinus Technical Quality: Adequate MEASUREMENTS (Male / Female) Normal Values 2D ECHO LVOT Diameter 2.0 cm LV Ejection Fraction MOD 2C 59.7 % LV Ejection Fraction 2C AL 60.9 % LA Diameter 4.3 cm LA Width 4.4 cm LA Height 5.3 cm RA Width 4.2 cm RA Height 4.8 cm Aorta at Sinotubular Diameter 2.3 cm M-MODE Aortic Annulus Diameter 2.6 cm LA Ao Ratio MM 1.6 MV E Point Septal Separation 0.3 cm DOPPLER AV Peak Velocity 283.5 cm/s LVOT Peak Velocity 142.0 cm/s AV Area Cont Eq vti 1.4 cm squared AV Area Cont Eq pk 1.6 cm squared MV Peak Velocity 151.0 cm/s MV Area PHT 3.3 cm squared Mitral E to A Ratio 1.5 MV E' Velocity 74.5 cm/s Mitral E to MV E' Ratio 13.7 Mitral E to LV E' Lateral Ratio 11.8 Mitral E to LV E' Septal Ratio 16.5 TR Peak Velocity 255.6 cm/s TR Peak Gradient 26.1 mmHg TR Mean Velocity 210.6 cm/s TR Mean Gradient 18.8 mmHg TR Velocity Time Integral 86.9 cm TV Peak E Velocity 70.0 cm/s Right Atrial Pressure 8.0 mmHg Pulmonary Artery Systolic Pressu 34.1 mmHg PV Peak Velocity 163.0 cm/s RV Acceleration Time 0.1 s RV Ejection Time 0.3 s RV AcT/ET 0.4 FINDINGS Left Ventricle Normal left ventricular size, systolic function and wall thickness, with no regional wall motion abnormalities. Left ventricular ejection fraction is estimated at 65%. Grade II/IV diastolic dysfunction, moderately elevated filling pressures. Right Ventricle Normal right ventricular size and systolic function. Normal right ventricular systolic pressure. Right Atrium Mildly increased right atrial size. Left Atrium Moderately increased left atrial size. Mitral Valve Structurally normal mitral valve. Trace mitral valve regurgitation. Aortic Valve Structurally normal trileaflet aortic valve. Mild aortic valve calcification. Mild to moderate aortic valve stenosis, mean gradient 18 mmHg, MYRNA 1.4 cm squared. No aortic valve regurgitation. Tricuspid Valve Structurally normal tricuspid valve. Trace tricuspid valve regurgitation. Pulmonic Valve Pulmonic valve not well visualized. Pericardium Normal pericardium without effusion. Aorta Normal ascending aorta dimension. IVC Inferior vena cava not visualized. CONCLUSIONS Normal left ventricular size, systolic function and wall thickness, with no regional wall motion abnormalities. Left ventricular ejection fraction is estimated at 65%. Grade II/IV diastolic dysfunction, moderately elevated filling pressures. Mildly increased right atrial size. Moderately increased left atrial size. Structurally normal mitral valve. Trace mitral valve regurgitation. Structurally normal trileaflet aortic valve. Mild aortic valve calcification. Mild to moderate aortic valve stenosis, mean gradient 18 mmHg, MYRNA 1.4 cm squared. No AI. From the previous echo dated 09/30/2019, there has been a very slight worsening of the aortic valve stenosis. The mean gradient is now 18 mmHg compared to 10.8 mmHg and the aortic valve area is now 1.4 cm squared compared to 1.6 cm squared. Otherwise, the study is unchanged. Dr. Dimas Sweet MD (Electronically Signed) Final Date: 13 June 2022 12:39 S
== END 2022-06-13 07:19 | disposition home or self-care (01) ==
PROVIDERS: PCP Family Medicine; Visit Provider Family Medicine
DX: R01.1 Cardiac murmur, unspecified (principal); R07.9 Chest pain, unspecified; I51.7 Cardiomegaly; I35.0 Nonrheumatic aortic (valve) stenosis
CPT/HCPCS: 93306

== ENCOUNTER → 2022-11-26 14:19 | Outpatient (BNVA) | payer MEDICARE, SELFPAY | PROVIDERS: PCP Family Medicine; Visit Provider Family Medicine | DX: F32.A Depression, unspecified (principal); K63.5 Polyp of colon; R06.02 Shortness of breath; E11.9 Type 2 diabetes mellitus without complications; K74.60 Unspecified cirrhosis of liver; I85.00 Esophageal varices without bleeding | CPT/HCPCS: 80053; 80061; 83036; 83880; 85025 ==

== ENCOUNTER → 2023-01-07 17:33 | Outpatient (BNVA) | payer MEDICARE, SELFPAY | PROVIDERS: PCP Family Medicine; Visit Provider Family Medicine | DX: D64.9 Anemia, unspecified (principal); R06.02 Shortness of breath; E11.9 Type 2 diabetes mellitus without complications; R01.1 Cardiac murmur, unspecified; F32.A Depression, unspecified | CPT/HCPCS: 83036; 85025 ==

== ENCOUNTER 2023-03-15 10:46 | Outpatient (CLI) | payer MEDICARE, SELFPAY ==
--- NOTE | 2023-03-15 10:54 | XR_ITS ---
WS: [id number] XR lumbar spine 2-3V* [id number] REASON FOR EXAM: lumbar and SI pain FINDINGS: Mild rotatory scoliosis convex right. Mild straightening of the normal lordosis of the lumbar spine. No significant vertebral body compression deformity. No focal vertebral body lesion. Mild narrowing of the L1/L2 disc mild to moderate endplate sclerosis and large osteophytosis. Narrowing of the L4/L5 and L5/S1 disc spaces with moderate endplate sclerosis and large osteophytosis . 3 mm of L2 in relation to L1 3 to 4 mm of anterolisthesis of L3 in relation to L2. 3 to 4 mm of anterolisthesis of L4 in relation to L3. 4 to 5 mm of anterolisthesis of L5 in relation to L4. Moderate degenerative arthropathy in the facet joints L4-S1. IMPRESSION: Degenerative spondylosis of the lumbar spine as above.
--- NOTE | 2023-03-15 10:54 | XR_ITS ---
WS: [id number] XR sacroiliac jts m 3V [id number] REASON FOR EXAM: pain in lumbar and SI joints FINDINGS: No fracture or focal bone lesion. Sacroiliac joints are well-defined without ankylosis. No erosions. No bridging. Thin articular marginal sclerosis. IMPRESSION: No sacral insufficiency fractures. No findings of sacroiliitis.
== END 2023-03-15 10:47 | disposition home or self-care (01) ==
LOC: RAD 10:48
PROVIDERS: PCP Family Medicine; Visit Provider Clinical Nurse Specialist Adult Health
DX: M53.3 Sacrococcygeal disorders, not elsewhere classified (principal); G89.29 Other chronic pain; M47.817 Spondylosis without myelopathy or radiculopathy, lumbosacral region
CPT/HCPCS: 72100; 72202

== ENCOUNTER 2023-05-03 09:11 | Outpatient (CLI) | payer MEDICARE, SELFPAY ==
--- NOTE | 2023-05-03 09:30 | MR_ITS ---
WS: [id number] MRI LUMBAR SPINE NONCONTRAST TECHNIQUE: Sagittal T1, T2 and STIR imaging. Axial T1 and T2 imaging. CLINICAL INFORMATION: sciatica on left COMPARISON: None. FINDINGS: Mild lumbar curve. No acute compression. Chronic spondylolysis L5-S1. Slight anterolisthesis L5 on S1 . Disc space narrowing worse at L4-L5 and L5-S1. Small central protrusion L1-2. L1-L2: Shallow central protrusion. Slight effacement of the ventral thecal sac. Spinal canal and fora men are patent. Mild facet arthropathy. L2-L3: Mild annular bulging. Slight effacement of ventral thecal sac. Mild facet arthropathy. Spinal canal and foramen are patent. L3-L4: Mild annular bulging. Moderate facet arthropathy. Small LEFT foraminal protrusion with mild LE FT and no significant RIGHT foraminal narrowing. Spinal canal is patent. L4-L5: Mild disc bulging with narrowing of the subarticular recess bilaterally. Slight impingement tr aversing L5 nerve roots. Mild bilateral foraminal narrowing. L5-S1: Chronic spondylolysis. Grade 1 anterolisthesis. Mild disc bulging with a LEFT paracentral prot rusion and annular tear. Impingement traversing LEFT S1 nerve root. Mild facet arthropathy. Mild bila teral foraminal narrowing. Visualized pelvic bony structures: Normal. Paravertebral soft tissues: Normal. Small RIGHT renal cyst. IMPRESSION: 1. Mild lumbar curve. No acute compression. 2. Shallow central protrusion L1-2 with mild central canal stenosis and impingement traversing L2 ne rve roots bilaterally. 3. LEFT paracentral protrusion L5-S1 impinges the LEFT S1 nerve root with a small annular fissure. R ecommend correlation LEFT S1 nerve root symptoms. 4. Mild disc bulge and osteophytic ridging L4-5 impinges the traversing L5 nerve roots bilaterally. 5. Small LEFT foraminal protrusion L3-4 with mild LEFT foraminal narrowing. 6. Chronic spondylolysis L5-S1 with mild grade 1 anterolisthesis.
== END 2023-05-03 09:12 | disposition home or self-care (01) ==
PROVIDERS: PCP Family Medicine; Visit Provider Family Medicine
DX: M54.32 Sciatica, left side (principal); M51.26 Other intervertebral disc displacement, lumbar region
CPT/HCPCS: 72148

== ENCOUNTER 2023-05-15 09:38 | Outpatient (RCR) | payer MEDICARE, SELFPAY | END 2023-06-04 23:59 | disposition home or self-care (01) | LOC: SPT 09:38 | PROVIDERS: PCP Family Medicine; Visit Provider Family Medicine | DX: M54.32 Sciatica, left side (principal) | CPT/HCPCS: 97110; 97161 ==

== ENCOUNTER 2023-06-06 12:03 | Outpatient (RCR) | payer MEDICARE, SELFPAY | END 2023-07-04 23:59 | disposition home or self-care (01) | LOC: SPT 12:03 | PROVIDERS: PCP Family Medicine; Visit Provider Family Medicine | DX: R29.6 Repeated falls (principal); M54.32 Sciatica, left side | CPT/HCPCS: 97110 ==

== ENCOUNTER 2023-07-11 10:41 | Outpatient (RCR) | payer MEDICARE, SELFPAY | END 2023-08-04 23:59 | disposition home or self-care (01) | LOC: SPT 10:41 | PROVIDERS: PCP Family Medicine; Visit Provider Family Medicine | DX: M54.32 Sciatica, left side (principal) | CPT/HCPCS: 97110 ==

== ENCOUNTER 2023-07-15 15:00 | Outpatient (CLI) | payer MEDICARE, SELFPAY ==
--- NOTE | 2023-07-15 15:15 | USCV_ITS ---
Saúl Farias Age: 68 Gender: M : 1955 Exam Date: 07/15/2023 15:13 Ordering Phys: Bridger Alfred MD Technologist: Pam Michaels Exam Location: [facility] – [place] Indication: aortic stenosis with worsening murmur BP: 124 / 64 HR: 61 Rhythm: Sinus Technical Quality: Adequate MEASUREMENTS (Male / Female) Normal Values 2D ECHO LV Diastolic Diameter PLAX 5.3 cm 4.2 - 5.9 / 3.9 - 5.3 cm LV Systolic Diameter PLAX 3.2 cm IVS Diastolic Thickness 1.0 cm 0.6 - 1.0 / 0.6 - 0.9 cm IVS Systolic Thickness 1.2 cm LVPW Diastolic Thickness 1.3 cm 0.6 - 1.0 / 0.6 - 0.9 cm LVPW Systolic Thickness 1.9 cm LVOT Diameter 2.0 cm LV Ejection Fraction 2D Teich 68.6 % LV Ejection Fraction MOD 2C 51.4 % LV Ejection Fraction 2C AL 52.7 % LA Diameter 3.5 cm LA Width 4.2 cm LA Height 5.6 cm RA Width 3.8 cm RA Height 6.1 cm Aorta at Sinotubular Diameter 2.5 cm M-MODE Aortic Annulus Diameter 3.0 cm LA Ao Ratio MM 1.4 MV E Point Septal Separation 1.6 cm DOPPLER AV Peak Velocity 380.8 cm/s LVOT Peak Velocity 140.0 cm/s AV Area Cont Eq vti 1.4 cm squared AV Area Cont Eq pk 1.2 cm squared MV Peak Velocity 124.0 cm/s MV Area PHT 2.6 cm squared Mitral E to A Ratio 1.1 MV E' Velocity 63.5 cm/s Mitral E to MV E' Ratio 16.0 Mitral E to LV E' Lateral Ratio 14.4 Mitral E to LV E' Septal Ratio 17.9 TR Peak Velocity 169.8 cm/s TR Peak Gradient 11.5 mmHg Right Atrial Pressure 5.0 mmHg Pulmonary Artery Systolic Pressu 16.5 mmHg PV Peak Velocity 155.0 cm/s RV Acceleration Time 0.2 s RV Ejection Time 0.4 s RV AcT/ET 0.5 FINDINGS Left Ventricle Left ventricle is normal size. LV systolic function is normal with EF of 55 to 60%. No regional wall abnormalities are seen. Right Ventricle Normal in size and function Right Atrium Normal in size Left Atrium Normal in size Mitral Valve Mild mitral annular calcification. Trace mitral regurgitation. Aortic Valve Aortic valve is thickened. Moderate aortic stenosis with aortic valve area 1.27 cm2 and mean gradient of 30 mmHg. Tricuspid Valve Mild tricuspid regurgitation. Pulmonary artery systolic pressure is normal. Pulmonic Valve Not well-visualized. Trace pulmonic regurgitation. Pericardium Normal Aorta Normal in size IVC Appears to be normal CONCLUSIONS LV systolic function is normal with EF of 55 to 60%. Trace mitral regurgitation Moderate aortic stenosis with aortic valve area 1.27 cm2 and mean gradient of 30 mmHg. Mild tricuspid regurgitation Trace pulmonic regurgitation Compared to prior echcoardiogram from 06/2022, aortic stenosis has worsened and patient has moderate aortic stenosis. Ed Jean MD (Electronically Signed) Final Date: 17 July 2023 10:31 S
== END 2023-07-15 15:01 | disposition home or self-care (01) ==
PROVIDERS: PCP Family Medicine; Visit Provider Family Medicine
DX: I08.2 Rheumatic disorders of both aortic and tricuspid valves (principal); R01.1 Cardiac murmur, unspecified
CPT/HCPCS: 93306

== ENCOUNTER 2023-07-17 10:39 | Inpatient (IN) | payer MEDICARE, SELFPAY ==
[2023-07-17 10:41] VITALS: BP 142/67; PULSE 70; RESP 18; TEMP 37.1; O2SAT 97; BMI 24.3
--- NOTE | 2023-07-17 10:46 | ECG_ITS ---
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 Measurements Intervals [place] Rate: 70 P: 8 HI: 175 QRS: 29 QRSD: 100 T: 151 QT: 411 QTc: 443 Interpretive Statements SINUS RHYTHM LEFT VENTRICULAR HYPERTROPHY AND ST-T CHANGE [VOLTAGE CRITERIA PLUS ST/T ABNORMALITY] INTERPRETATION BASED ON A DEFAULT AGE OF 40 YEARS No previous ECG available for comparison Electronically Signed On 07-17-2023 21:47:02 PERISHABLE FRUIT INSPECTOR by Jose De Jesus Mckeon M.D. [email or web address] to (do) [id number] f
--- NOTE | 2023-07-17 10:54 | CT_ITS ---
WS: [id number] CT HEAD TECHNIQUE: Noncontrast CT of the head obtained from the skullbase to the vertex. CLINICAL INFORMATION: ams COMPARISON: None. DLP: 1147.[address] scans at [facility] use at least one of these dose optimization techniques: automated e xposure control; mA and/or kV adjustment per patient size (includes targeted exams where dose is matc hed to clinical indication); or iterative reconstruction. FINDINGS: No evidence of intracranial hemorrhage or mass effect. Ventricular system and basal cisterns are hebert nt. Moderate small vessel changes with moderate parenchymal volume loss. No extra-axial fluid collect ions. No evidence of mass or mass effect. Mucosal thickening with scattered fluid in the ethmoid air cells. Trace fluid in the maxillary sinuse s. Mastoid air cells are well aerated. IMPRESSION: 1. No evidence of intracranial hemorrhage or mass effect. 2. Moderate small vessel changes. Moderate parenchymal volume loss. 3. Intracranial vascular calcification. 4. Mild ethmoid sinusitis. 5. No acute intracranial findings.
--- NOTE | 2023-07-17 10:54 | XR_ITS ---
WS: [id number] Exam: XR chest 1V portable [id number] Date/Time of Exam: 07/17/2023 10:54 AM Reason For Exam: ams Comparison 03/22/2020. Infiltrate and atelectasis in the RIGHT lower lobe. Remaining lung zones are clear. Mild cardiac enla rgement. The mediastinum is unremarkable for technique. Bony structures are intact. IMPRESSION: 1. Infiltrate and atelectasis in the RIGHT lower lobe. 2. Mild cardiac enlargement.
--- NOTE | 2023-07-17 11:00 | ED_ITS ---
HPI - Weakness 2 General: Chief complaint: Weakness Stated complaint: CONFUSION, WEAKNESS Time Seen by Provider: 07/17/23 10:53 Source: family and EMS Mode of arrival: EMS Limitations: altered mental status History of Present Illness: 68-year-old male who is here with altere d mental status family states the last time normal yesterday evening around 6 or 7. States he woke up this morning extremely confused with generalized weakness with difficulty walking. Patient is here able to tell me his name but really not able answer any other questions he does have a history of cirrhosis family states he was supposed to be on lactulose but did not take it denies any fevers denies any pain. Review of Systems 2 General: Reports: ROS unobtainable due to mental status PFSH ED 2 PFSH: Medical History Aortic stenosis Heart murmur Diabetes mellitus Cirrhosis of liver Depression Colon polyps Esophageal varices Macronodular cirrhosis H/O renal calculi Diabetes mellitus Surgical History Status post colonoscopy with polypectomy (08/16/21) Status post colonoscopy with polypectomy (06/07/20) H/O esophagogastroduodenoscopy (06/07/20) Status post laparoscopic cholecystectomy (04/20/20) with liver biopsy H/O circumcision H/O vasectomy H/O umbilical hernia repair H/O skin graft left foot Family History Other CAD (coronary artery disease) Cancer Diabetes Hypertension Denies family history of Anesthesia complication Bleeding disorder Social History Smoking and tobacco/nicotine status: former use of tobacco/nicotine Alcohol intake: never Substance/Drug Use: never Household members: spouse Marital status: Current occupational status: retired Physical Exam 2 Const: COMMON NORMALS: negative for patient oriented x3 EXAM LIMITATIONS: a ltered mental status HENMT: COMMON NORMALS: normocephalic and atraumatic HEAD & SCALP: n ormocephalic and atraumatic Eye: COMMON NORMALS: Equal, round and reactive pupils present and EOMs intact bilaterally PUPIL: Yes Equal, round and reactive pupils present Neck/C-Spine: COMMON NORMALS: full ROM and supple Chest: COMMONS NORMALS: normal inspection of the chest and normal palpation of entire chest wall Resp: COMMON NORMALS: normal respiratory effort, No retractions, No use of accessory muscles and clear to auscultation bilaterally AUSCULTATION: clear to auscultation bilaterally Cardio: COMMON NORMALS: regular rate and regular rhythm RATE: regular rate RHYTHM: regular rhythm HEART SOUNDS: Murmur heart sound present systolic GI: COMMON NORMALS: Normal to inspection, nondistended, normoactive bowel sounds present, Soft to palpation, non-tender and no masses PALPATION: Yes Soft to palpation Extremity: COMMON NORMALS: normal to inspection and full ROM Neuro: COMMON NORMALS: moves all extremities; negative for patient oriented x3 CRANIAL NERVES: Yes CN normal except as noted SPEECH: speech normal Psych: COMMON NORMALS: mental status grossly normal, Normal thought process present and cooperative THOUGHT PROCESS: Normal thought process present Skin: COMMON NORMALS: no rashes or lesions noted and no wounds GENERAL SKIN EXAM: no rashes or lesions noted Course 2 Vital Signs: Vital signs: Vital Signs Temperature 98.7 F 07/17/23 10:41 Pulse Rate 70 07/17/23 10:41 Respiratory Rate 18 07/17/23 10:41 Blood Pressure 142/67 07/17/23 10:41 Pulse Oximetry 97 07/17/23 10:41 Oxygen Delivery Me thod Room Air 07/17/23 10:41 MDM - Weakness Medical Decision Making Patient presents with confusion most likely a hepatic encephalopathy. Has some mild left leg weakness no other focal deficits seen he is not a tPA candidate as last known normal was yesterday. I spoke to the hospitalist will admit at this time. Medical Records I reviewed the patient's medical records. Lab Data I reviewed the patient's lab results. 07/17/23 11:06 07/17/23 11:06 Laboratory Results WBC 3.76 10^3/uL (3.29-11.43) 07/17/23 11:06 RBC 2.98 10^6/uL (3.85-5.65) L 07/17/23 11:06 Hgb 10.20 g/dL (11.27-16.99) L 07/17/23 11:06 Hct 29.5 % (37-53) L 07/17/23 11:06 MCV 99.0 fl (82-101) 07/17/23 11:06 MCH 34.2 pg (27-33) H 07/17/23 11:06 MCHC 34.6 g/dL (30-55) 07/17/23 11:06 RDW 14.1 % (12.1-15.1) 07/17/23 11:06 Plt Count 69 10^3/cmm (157-399) L 07/17/23 11:06 MPV 11.2 fL (7.4-10.4) H 07/17/23 11:06 Neut % (Auto) 64.8 % 07/17/23 11:06 Lymph % (Auto) 14.1 % 07/17/23 11:06 [place] % (Auto) 18.1 % 07/17/23 11:06 Eos % (Auto) 1.9 % 07/17/23 11:06 Baso % (Auto) 0.8 % 07/17/23 11:06 Neut # (Auto) 2.44 10^3/uL (1.8-7.7) 07/17/23 11:06 Lymph # (Auto) 0.5 10^3/uL (0.8-4.8) L 07/17/23 11:06 [place] # (Auto) 0.7 10^3/uL (0.2-0.9) 07/17/23 11:06 Eos # (Auto) 0.1 10^3/uL (0.0-0.8) 07/17/23 11:06 Baso # (Auto) 0.0 10^3/uL (0.0-0.1) 07/17/23 11:06 Nucleated RBC % (auto) 0 % 07/17/23 11:06 Nucleated RBCs # 0.0 /100WBC 07/17/23 11:06 PT 17.70 SECONDS (12.1-14.9) H 07/17/23 11:06 INR 1.40 (0.8-1.2) H 07/17/23 11:06 Sodium 138 mmol/L (136-145) 07/17/23 11:06 Potassium 4.1 mmol/L (3.5-5.1) 07/17/23 11:06 Chloride 105 mmol/L (98-107) 07/17/23 11:06 Carbon Dioxide 25 mmol/L (22-29) 07/17/23 11:06 Anion Gap 12.1 (5-19) 07/17/23 11:06 BUN 25 mg/dL (8-23) H 07/17/23 11:06 Creatinine 1.6 mg/dL (0.7-1.2) H 07/17/23 11:06 GFR Calculation 43.3 mL/min (90-130) L 07/17/23 11:06 Glucose 212 mg/dL (65-115) H 07/17/23 11:06 Calculated Osmolality 297 mOsm/kg (285-295) H 07/17/23 11:06 Calcium 9.5 mg/dL (8.5-10.5) 07/17/23 11:06 Magnesium 1.9 mg/dL (1.7-2.3) 07/17/23 11:06 Total Bilirubin 1.7 mg/dL (0.15-1.2) H 07/17/23 11:06 AST 65 U/L (0-40) H 07/17/23 11:06 ALT 29 U/L (0-41) 07/17/23 11:06 Alkaline Phosphatase 76 U/L (40-130) 07/17/23 11:06 Ammonia 62 umol/L (16-60) H 07/17/23 11:06 Total Protein 6.4 g/dL (6.6-8.7) L 07/17/23 11:06 Albumin 2.6 g/dL (3.5-5.2) L 07/17/23 11:06 Globulin 3.8 g/dL (1.3-4.6) 07/17/23 11:06 Ethyl Alcohol < 10 mg/dL (0-10) 07/17/23 11:06 All radiology interpretation(s) finalized by discharge EKG Data EKG 1: I personally reviewed and interpreted this EKG as follows: EKG interpretation date: 07/17/23 EKG interpretation time: 10:46 Interpretation: nsr hr [address] or t wave abnormalities qrs 100 qtc 431 Discharge Plan Discharge Patient Disposition: Admitted As Inpatient Clinical Impression: Altered mental status, Cirrhosis of liver Condition: Stable Prescriptions: No Action glimepiride 2 mg tablet 2 mg PO BID Qty: 180 3RF Multivitamin 50 Plus Tablet 1 tab PO QAM Vitamin B-50 Tablet 1 tab PO QAM Fiber Gummies 2 gram Tablet,Chewable 6 g PO DAILY Calcium With Vit D Gummies 2 tab PO DAILY Vitamin B 12 Gummies 2 tab PO DAILY Vitamin C Gummies 2 tab PO DAILY propranolol 10 mg tablet 10 mg PO BID metformin 1,000 mg tablet 1,000 mg PO BID Lexapro 10 mg tablet 10 mg PO QAM Xifaxan 550 mg tablet 550 mg PO BID PRN (Reason: doesnt take consistently) Referrals: Bridger Alfred MD [Primary Care Provider] - Coding Level of Care Code ED Machine Repairer Maintenance for gia Valadez
--- NOTE | 2023-07-17 11:12 | PC.PHAR ---
pts family verified pts medications-states the pt doesnt take his xifaxan 550mg bid all the time states last took saturday pts family states sometimes he will go for a week at a time and not take it-pts family states the dr put the pts metformin 1000mg bid on hold about 7 days ago
[2023-07-17 11:13] LABS: Basophils % 0.8 %; Eosinophils # 0.1 10^3/uL (0.0-0.8); Eosinophils % 1.9 %; Hematocrit 29.5 % (37-53); Lymphocytes # 0.5 10^3/uL (0.8-4.8); Lymphocytes % 14.1 %; Mean Corpuscular HGB Conc 34.6 g/dL (30-55); Mean Corpuscular Hemoglobin 34.2 pg (27-33); Mean Platelet Volume 11.2 fL (7.4-10.4); Monocytes # 0.7 10^3/uL (0.2-0.9); Monocytes % 18.1 %; Neutrophils # 2.44 10^3/uL (1.8-7.7); Neutrophils % 64.8 %; Nucleated Red Blood Cells % 0 %; Platelet Count 69 10^3/cmm (157-399); Red Blood Count 2.98 10^6/uL (3.85-5.65); Red Cell Distribution Width 14.1 % (12.1-15.1); White Blood Count 3.76 10^3/uL (3.29-11.43)
[2023-07-17 11:31] LABS: Alanine Aminotransferase 29 U/L (0-41); Albumin Level 2.6 g/dL (3.5-5.2); Alkaline Phosphatase 76 U/L (40-130); Anion Gap 12.1 (5-19); Aspartate Amino Transferase 65 U/L (0-40); Blood Urea Nitrogen 25 mg/dL (8-23); Calcium 9.5 mg/dL (8.5-10.5); Carbon Dioxide 25 mmol/L (22-29); Chloride 105 mmol/L (98-107); Globulin 3.8 g/dL (1.3-4.6); Glomerular Filtration Rate 43.3 mL/min (90-130); Glucose 212 mg/dL (65-115); Magnesium 1.9 mg/dL (1.7-2.3); Osmolality Calculated 297 mOsm/kg (285-295); Potassium 4.1 mmol/L (3.5-5.1); Sodium 138 mmol/L (136-145); Total Bilirubin 1.7 mg/dL (0.15-1.2); Total Protein 6.4 g/dL (6.6-8.7)
[2023-07-17 11:32] LABS: Alcohol Level < 10 mg/dL (0-10)
[2023-07-17 11:33] LABS: Ammonia 62 umol/L (16-60)
[2023-07-17] MEDS: lactulose oral liq 20 gm/30 mL UDC 30 GM PO (12:25)
[2023-07-17 12:37] LABS: Urine Color Brown (Yellow)
[2023-07-17 12:38] LABS: Add Urine Microscopic? YES; Bilirubin Urine Neg (Negative); Blood Urine 3+ (Negative); Glucose Urine UA Trace (Normal); Ketones Urine 1+ (Negative); Leukocyte Esterase Urine Negative (Negative); Nitrate Urine Negative (Negative); Protein Urine 3+ (Negative); Urine Appearance Clear (CLEAR); Urobilinogen Urine 1 mg/dL (Negative); pH Urine 5 (5-7)
[2023-07-17 12:51] LABS: Add Urine Culture? Yes; Amorphous Sediment Urine TRACE /hpf; Bacteria Urine TRACE /hpf; Mucus Urine 3+ /hpf; RBC Urine 15-25 /hpf (0-2); Squamous Epithelial Cell Urine RARE /hpf (0-5); WBC Urine 0-4 /hpf (0-5)
[2023-07-17 14:17] VITALS: BP 158/64; PULSE 68; RESP 17; O2SAT 96
--- NOTE | 2023-07-17 15:25 | CTR_ITS ---
PROCEDURE INFORMATION: Exam: CT Abdomen And Pelvis Without Contrast Exam date and time: 07/17/2023 4:09 PM Age: 68 years old Clinical indication: Abdominal tenderness; Additional info: Emmanuel, liver cirrhosis, evaluate for hydronephrosis, ascites , known liver cirrhosis TECHNIQUE: Imaging protocol: Computed tomography of the abdomen and pelvis without contrast. Radiation optimization: All CT scans at this facility use at least one of these dose optimization techniques: automated exposure control; mA and/or kV adjustment per patient size (includes targeted exams where dose is matched to clinical indication); or iterative reconstruction. REPORTING DATA: Count of CT and Cardiac NM exams in prior 12 months: This patient has received 0 known CTs and 0 known cardiac nuclear medicine studies in the 12 months prior to the current study. COMPARISON: CT abdomen pelvis w con* [id number] 11/15/2021 2:09 PM RADIATION DOSE METRICS: Total DLP (mGy-cm): 891.81 FINDINGS: Lungs: Increased small right pleural effusion. Increased bibasilar atelectasis. Heart: New mild cardiomegaly. Coronary arteries: Unchanged moderate amount of coronary artery calcification. Liver: Unchanged small liver with shape consistent with cirrhosis. Otherwise, unremarkable. Gallbladder and bile ducts: Unchanged cholecystectomy. Otherwise, unremarkable. Pancreas: New 2 cm by 1.4 cm by 1.3 cm low-density lesion in the pancreatic neck. It is unclear if this is solid or cystic. Recommend further evaluation of this with contrast-enhanced MRI. Otherwise, unremarkable. Spleen: Unchanged mild splenomegaly. Otherwise, unremarkable. Adrenal glands: Normal. No mass. Kidneys and ureters: A few small nonobstructing renal calculi bilaterally. Some are new or increased in size. Otherwise, unremarkable. Stomach and bowel: Unchanged colonic diverticulosis. No acute diverticulitis. Otherwise, unremarkable. Appendix: Normal appendix. Intraperitoneal space: Unremarkable. No free air. No significant fluid collection. Vasculature: Unchanged moderate amount of arterial calcification. Unchanged vascular findings of portal hypertension. Lymph nodes: Unremarkable. No enlarged lymph nodes. Urinary bladder: New transurethral Cardenas catheter in the empty urinary bladder. Reproductive: Unremarkable as visualized. Bones/joints: Unchanged mild and moderate multilevel spondylosis. Otherwise, unremarkable. Soft tissues: Unchanged small fat containing umbilical hernia. CT/CT abdomen pelvis wo con [id number] IMPRESSION: 1. New 2 cm x 1.4 cm x 1.3 cm low-density lesion in the pancreatic neck. It is unclear if this is solid or cystic. Recommend contrast-enhanced MRI of it. 2. Increased small right pleural effusion with increased bibasilar atelectasis. 3. New mild cardiomegaly. 4. A few nonobstructing renal calculi bilaterally. Some are new or increased in size. 5. New transurethral Cardenas catheter in the empty urinary bladder. 6. Additional details as above. Unchanged.
--- NOTE | 2023-07-17 15:35 | P.HP_ITS ---
Providers/Chief Complaint 2 Admitting Physician: Salima Shine MD Primary Care Provider: Bridger Alfred MD Chief Complaint: CONFUSION, WEAKNESS History of Present Illness Saúl Farias is a 68 year old male with a known history of liver cirrhosis, possibly also portal hypertension, who is presenting to the hospital today with chief complaints of altered mental status. Historian is mainly his . states that patient was in his usual state of health until about 7 PM last evening. He went to bed, she got him a soda but when she woke him up this morning he was disoriented. He left to most questions. Replied tangentially and inappropriately. He is pretty much the same upon arrival here. Review of his home medication shows that patient is supposed to be on rifaximin and also possibly on lactulose, however he takes these intermittently. Does not have a past diagnosis of hepatic encephalopathy. Review of medication shows he is on propranolol so possibly has underlying portal hypertension. On evaluation today he is able to correctly state his name, the date today but did not know the year. Review of systems positive for recurrent episodes of vomiting over the past few weeks. It appears he visited with his PCP Dr. Higgins on July 09, 2023 with complaints of multiple episodes of nausea and vomiting. No him hematemesis noted. Hemoglobin is stable since November 2022 at 10.7. No other active bleeding reported. Review of Systems 2 General: Reports: ROS unobtainable due to medical condition Medications/Allergies Home Medications Medication Instructions Recorded Confirmed Last Taken Type rbytjszweynl-meicozcb-eoxvcw 1 tab PO QAM 11/20/21 07/17/23 07/17/23 History tablet (Multivitamin 50 Plus tablet) glimepiride 2 mg tablet 2 mg PO BID #180 tabs 01/31/23 07/17/23 07/17/23 Rx Calcium With Vit D Gummies 2 tab PO DAILY 07/17/23 07/17/23 07/15/23 History Vitamin B 12 Gummies 2 tab PO DAILY 07/17/23 07/17/23 07/15/23 History Vitamin C Gummies 2 tab PO DAILY 07/17/23 07/17/23 07/15/23 History escitalopram oxalate 10 mg tablet 10 mg PO QAM 07/17/23 07/17/23 07/17/23 History (Lexapro) inulin 2 gram chewable tablet 6 g PO DAILY 07/17/23 07/17/23 07/15/23 History (Fiber Gummies) metformin 1,000 mg tablet 1,000 mg PO BID 07/17/23 07/17/23 7 Days Ago History ~07/10/23 med on hold propranolol 10 mg tablet 10 mg PO BID 07/17/23 07/17/23 07/17/23 History rifaximin 550 mg tablet (Xifaxan) 550 mg PO BID PRN doesnt take 07/17/23 07/17/23 07/15/23 History consistently vitamin B complex 1 tab PO QAM 07/17/23 07/17/23 07/17/23 History Allergies Allergy/AdvReac Type Severity Reaction Status Date / Time No Known Allergies Allergy Verified 07/17/23 11:04 PFSH Acute 2 PFSH: Medical History Aortic stenosis Heart murmur Diabetes mellitus Cirrhosis of liver Depression Colon polyps Esophageal varices Macronodular cirrhosis H/O renal calculi Diabetes mellitus Surgical History Status post colonoscopy with polypectomy (08/16/21) Status post colonoscopy with polypectomy (06/07/20) H/O esophagogastroduodenoscopy (06/07/20) Status post laparoscopic cholecystectomy (04/20/20) with liver biopsy H/O circumcision H/O vasectomy H/O umbilical hernia repair H/O skin graft left foot Family History Other CAD (coronary artery disease) Cancer Diabetes Hypertension Denies family history of Anesthesia complication Bleeding disorder Social History Smoking and tobacco/nicotine status: former use of tobacco/nicotine Alcohol intake: never Substance/Drug Use: never Household members: spouse Marital status: Current occupational status: retired Vitals/I&O/Wt Last Vital Signs Temp 98.7 F 07/17/23 10:41 Pulse 68 07/17/23 14:17 Resp 17 07/17/23 14:17 BP 158/64 07/17/23 14:17 Pulse Ox 96 07/17/23 14:17 O2 Del Method Room Air 07/17/23 14:17 Weight last 48 hrs Weight 72.575 kg Physical Exam 2 Narrative: General: No acute distress, AO x2 HEENT: PERRLA, pupils bilaterally equal and reactive, pallors not present Chest: Normal vesicular breath sounds, no added sounds, equal good air entry bilaterally CVS: S1-S2 regular, no murmurs, no tachycardia, no gallops, no rubs Abdomen: Soft, nontender, no organomegaly, bowel sounds present Neuro: No focal deficits, no facial deformity, AO x2, power 5/5 in all limbs Urinary Catheter Management: Cardenas: Cath Placed During This Visit: yes Urinary Catheter Date of Insertion: 07/17/23 Urinary Catheter Time of Insertion: 12:19 Data 07/18/23 05:24 07/18/23 05:24 Other data: Laboratory Results WBC 3.76 10^3/uL (3.29-11.43) 07/17/23 11:06 RBC 2.98 10^6/uL (3.85-5.65) L 07/17/23 11:06 Hgb 10.20 g/dL (11.27-16.99) L 07/17/23 11:06 Hct 29.5 % (37-53) L 07/17/23 11:06 MCV 99.0 fl (82-101) 07/17/23 11:06 MCH 34.2 pg (27-33) H 07/17/23 11:06 MCHC 34.6 g/dL (30-55) 07/17/23 11:06 RDW 14.1 % (12.1-15.1) 07/17/23 11:06 Plt Count 69 10^3/cmm (157-399) L 07/17/23 11:06 MPV 11.2 fL (7.4-10.4) H 07/17/23 11:06 Neut % (Auto) 64.8 % 07/17/23 11:06 Lymph % (Auto) 14.1 % 07/17/23 11:06 [place] % (Auto) 18.1 % 07/17/23 11:06 Eos % (Auto) 1.9 % 07/17/23 11:06 Baso % (Auto) 0.8 % 07/17/23 11:06 Neut # (Auto) 2.44 10^3/uL (1.8-7.7) 07/17/23 11:06 Lymph # (Auto) 0.5 10^3/uL (0.8-4.8) L 07/17/23 11:06 [place] # (Auto) 0.7 10^3/uL (0.2-0.9) 07/17/23 11:06 Eos # (Auto) 0.1 10^3/uL (0.0-0.8) 07/17/23 11:06 Baso # (Auto) 0.0 10^3/uL (0.0-0.1) 07/17/23 11:06 Nucleated RBC % (auto) 0 % 07/17/23 11:06 Nucleated RBCs # 0.0 /100WBC 07/17/23 11:06 PT 17.70 SECONDS (12.1-14.9) H 07/17/23 11:06 INR 1.40 (0.8-1.2) H 07/17/23 11:06 Sodium 138 mmol/L (136-145) 07/17/23 11:06 Potassium 4.1 mmol/L (3.5-5.1) 07/17/23 11:06 Chloride 105 mmol/L (98-107) 07/17/23 11:06 Carbon Dioxide 25 mmol/L (22-29) 07/17/23 11:06 Anion Gap 12.1 (5-19) 07/17/23 11:06 BUN 25 mg/dL (8-23) H 07/17/23 11:06 Creatinine 1.6 mg/dL (0.7-1.2) H 07/17/23 11:06 GFR Calculation 43.3 mL/min (90-130) L 07/17/23 11:06 Glucose 212 mg/dL (65-115) H 07/17/23 11:06 Calculated Osmolality 297 mOsm/kg (285-295) H 07/17/23 11:06 Calcium 9.5 mg/dL (8.5-10.5) 07/17/23 11:06 Magnesium 1.9 mg/dL (1.7-2.3) 07/17/23 11:06 Total Bilirubin 1.7 mg/dL (0.15-1.2) H 07/17/23 11:06 AST 65 U/L (0-40) H 07/17/23 11:06 ALT 29 U/L (0-41) 07/17/23 11:06 Alkaline Phosphatase 76 U/L (40-130) 07/17/23 11:06 Ammonia 62 umol/L (16-60) H 07/17/23 11:06 Total Protein 6.4 g/dL (6.6-8.7) L 07/17/23 11:06 Albumin 2.6 g/dL (3.5-5.2) L 07/17/23 11:06 Globulin 3.8 g/dL (1.3-4.6) 07/17/23 11:06 Urine Color Brown (Yellow) A 07/17/23 12:16 Urine Appearance Clear (CLEAR) 07/17/23 12:16 Urine pH 5 (5-7) 07/17/23 12:16 Ur Specific [place] 1.030 (1.005-1.030) 07/17/23 12:16 Urine Protein 3+ (Negative) H 07/17/23 12:16 Urine Glucose (UA) Trace (Normal) H 07/17/23 12:16 Urine Ketones 1+ (Negative) H 07/17/23 12:16 Urine Blood 3+ (Negative) H 07/17/23 12:16 Urine Nitrate Negative (Negative) 07/17/23 12:16 Urine Bilirubin Neg (Negative) 07/17/23 12:16 Urine Urobilinogen 1 mg/dL (Negative) H 07/17/23 12:16 Ur Leukocyte Esterase Negative (Negative) 07/17/23 12:16 Urine RBC 15-25 /hpf (0-2) H 07/17/23 12:16 Urine WBC 0-4 /hpf (0-5) H 07/17/23 12:16 Ur Squamous Epith Cells Rare /hpf (0-5) 07/17/23 12:16 Other Crystals Caalcium carb tr /hpf 07/17/23 12:16 Amorphous Sediment Trace /hpf 07/17/23 12:16 Urine Bacteria Trace /hpf (NONE) 07/17/23 12:16 Hyaline Casts 10-15 /lpf H 07/17/23 12:16 Urine Mucus 3+ /hpf 07/17/23 12:16 Ethyl Alcohol < 10 mg/dL (0-10) 07/17/23 11:06 A&P Assessment and plan (1) Hepatic encephalopathy: Patient with known chronic liver disease and cirrhosis presenting today with altered mental status. Per discussion with family it appears he has been having gait instability, alteration of his sleep-wake cycle at least over the past few months. More acutely worsened over the last 24 hours. Ammonia is elevated at 62. Patient has not been taking his lactulose at home which likely precipitated the episode today Continue lactulose every 3 hours and titrate to 4-6 bowel movements. If unable to take p.o. lactulose will add rectal enemas. Continue rifaximin 550 mg twice daily. (2) Coagulopathy: Deranged INR at 1.4. No active signs of bleeding. (3) Cirrhosis of liver: Known diagnosis since 2019. MELD score of 16 correlating with 6% mortality at 3 months. (4) AYDEN (acute kidney injury): Gentle IV hydration normal saline at 50 cc an hour, closely monitor for any development of fluid overload. Plan DVT prophylaxis: SCDs only. Anticoagulation contraindicated due to low platelets. Attestations 2 Medical Necessity Statement*: Greater than 2 midnight admission is anticipated for the management of acute hepatic encephalopathy. Coding Level of Care Code Acute Code for Chg Fwd High MDM includes number and complexity of problems actively addressed during encounter, amount and/or complexity of data reviewed/ordered and described risk of complication, morbidity or mortality of management as documented Diagnoses Hepatic encephalopathy K76.82 Coagulopathy D68.9 Cirrhosis of liver K74.60 AYDEN (acute kidney injury) N17.9
[2023-07-17 16:33] LABS: Glucose Point of Care 162 mg/dL (70-110)
[2023-07-17 16:49] VITALS: BP 163/71; PULSE 72; RESP 17; TEMP 36.7; O2SAT 99
[2023-07-17] MEDS: sodium chloride 0.9% 1,000 ML 50 ML IV (17:42)
[2023-07-17] MEDS: lactulose oral liq 20 gm/30 mL UDC PO (17:43)
[2023-07-17] MEDS: insulin lispro 100 unit/1 mL SUBCUT (17:43)
[2023-07-17 19:48] VITALS: BP 151/69; PULSE 73; RESP 16; TEMP 37.6; O2SAT 97
[2023-07-17 21:25] LABS: Glucose Point of Care 86 mg/dL (70-110)
[2023-07-17 22:00] VITALS: PULSE 69
[2023-07-17 23:51] VITALS: BP 117/62; PULSE 68; RESP 15; TEMP 37.2; O2SAT 94
[2023-07-18] VITALS (11 sets, daily range): BP systolic 108–148; BP diastolic 53–66; PULSE 63–85; RESP 15–17; TEMP 36.6–37.9; O2SAT 94–97
[2023-07-18] MEDS: cyanocobalamin 1,000 mcg Tablet 1000 MCG PO (05:06)
[2023-07-18 05:34] LABS: Basophils % 0.3 %; Eosinophils % 0.6 %; Hematocrit 27.8 % (37-53); Lymphocytes # 0.9 10^3/uL (0.8-4.8); Lymphocytes % 28.1 %; Mean Corpuscular HGB Conc 34.2 g/dL (30-55); Mean Corpuscular Hemoglobin 33.8 pg (27-33); Mean Corpuscular Volume 98.9 fl (82-101); Mean Platelet Volume 10.7 fL (7.4-10.4); Monocytes # 0.5 10^3/uL (0.2-0.9); Monocytes % 16.2 %; Neutrophils # 1.82 10^3/uL (1.8-7.7); Neutrophils % 54.5 %; Nucleated Red Blood Cells % 0 %; Platelet Count 61 10^3/cmm (157-399); Red Blood Count 2.81 10^6/uL (3.85-5.65); Red Cell Distribution Width 13.8 % (12.1-15.1); White Blood Count 3.34 10^3/uL (3.29-11.43)
[2023-07-18 06:07] LABS: Alanine Aminotransferase 28 U/L (0-41); Albumin Level 2.2 g/dL (3.5-5.2); Alkaline Phosphatase 61 U/L (40-130); Anion Gap 10.9 (5-19); Aspartate Amino Transferase 69 U/L (0-40); Blood Urea Nitrogen 29 mg/dL (8-23); Calcium 8.5 mg/dL (8.5-10.5); Carbon Dioxide 24 mmol/L (22-29); Chloride 106 mmol/L (98-107); Globulin 3.2 g/dL (1.3-4.6); Glomerular Filtration Rate 43.3 mL/min (90-130); Glucose 69 mg/dL (65-115); Osmolality Calculated 288 mOsm/kg (285-295); Potassium 3.9 mmol/L (3.5-5.1); Sodium 137 mmol/L (136-145); Total Bilirubin 1.2 mg/dL (0.15-1.2); Total Protein 5.4 g/dL (6.6-8.7)
[2023-07-18 06:52] LABS: Glucose Point of Care 61 mg/dL (70-110)
[2023-07-18 07:42] LABS: Glucose Point of Care 86 mg/dL (70-110)
[2023-07-18] MEDS: pantoprazole DR 40 mg Tablet PO (08:49)
[2023-07-18] MEDS: lactulose oral liq 20 gm/30 mL UDC PO ×4 (10:19→21:45)
--- NOTE | 2023-07-18 10:34 | PC.CHAP ---
Pastoral Care Encounter/Spiritual Assessment Type of Contact [x] Declined commercial carpenter visit [] Patient/Family/Request visit [] Outpatient visit [] Follow-up visit [] Physician referral [] Code/Alert [] Routine visit [] Staff referral [] Actively dying [] Patient sleeping [] Family support [] [] Out of room [] Palliative care [] [] Receiving care in room [] Pre-surgical visit [] Trauma [] Long length of stay [] ICU visit [] Other: Relational/Emotional Strength [] Patient feels connected with others/family/visitors/staff [] Distress [] Loneliness/isolation [] Abandonment Spirituality of Patient [] Person of Olya [] Attends Orthodox of their Olya [] Believes in Prayer [] Reads Bible or Episcopal materials [] There are Spiritual issues to be addressed [place] Interventions [] Prayer [] Active listening [] Non-anxious presence [] Spiritual/emotional support [] Crisis/trauma care [] Spiritual counseling [] Bereavement support [] Provided bereavement packet [] Provided Bible/devotional materials [] Provided toy/stuffed animal, coloring book to patient or family member [] Provided Communion [] Anointing/[place] [] Salvation [] Completed spiritual assessment [] Other: Impact on Illness or Injury [] Angry [] Fearful [] Anxious [] Often cries [] Exhaustion [] Unable to work [] Unable to attend yarsanism [] Unable to walk/stand [] Unable to read [] Unable to drive [] Unable to eat/drink [] Unable to sleep [] Unable to be with family [] Patient intubated [] Other: Summary Declined commercial carpenter visit Time spent with patient 5 mins
[2023-07-18 11:37] LABS: Glucose Point of Care 113 mg/dL (70-110)
[2023-07-18] MEDS: sodium chloride 0.9% 1,000 ML 50 ML IV (13:14)
--- NOTE | 2023-07-18 16:25 | PC.NURSE ---
J2EE CONSULTANT reports pt to have a temp of 100.2. This nurse rechecks temp and it is 99.5.
--- NOTE | 2023-07-18 16:55 | P.PN_ITS ---
Subjective 2 Subjective: CT of the abdomen and pelvis was performed yesterday as patient had complained of persistent nausea and had been throwing up his lactulose. Unfortunately did not get repeat doses of lactulose overnight. He has not had any bowel movement yet. Mental status continues to be the same as yesterday, however he is able to answer orientation questions better today. Tmax 100.2 Fahrenheit this afternoon Medications: Reviewed: Yes Vitals/I&O/Wt Last Vital Signs Temp 99.5 F 07/18/23 16:25 Pulse 69 07/18/23 15:58 Resp 17 07/18/23 15:58 BP 118/64 07/18/23 15:58 Pulse Ox 96 07/18/23 15:58 O2 Del Method Room Air 07/18/23 15:58 07/18/23 07/18/23 07/18/23 06:59 14:59 22:59 Intake Total 1696.667 / 1696.667 Output Total 150 / 550 650 / 650 Balance -150 / -550 1696.667 / 1696.667 -650 / 1046.667 Weight last 48 hrs Weight 93.185 kg Weight 72.575 kg Weight 72.575 kg Physical Exam 2 Narrative: General: No acute distress, AO x2-3, drowsy HEENT: PERRLA, pupils bilaterally equal and reactive, pallors not present Chest: Normal vesicular breath sounds, no added sounds, equal good air entry bilaterally CVS: S1-S2 regular, no murmurs, no tachycardia, no gallops, no rubs Abdomen: Soft, nontender, no organomegaly, bowel sounds present Neuro: No focal deficits, no facial deformity, AO x3, power 5/5 in all limbs Urinary Catheter Management: Cardenas: Cath Placed During This Visit: yes Reason for Continuing Indwelling Catheter: Other Urinary Catheter Date of Insertion: 07/17/23 Urinary Catheter Time of Insertion: 12:19 Data 07/18/23 05:24 07/18/23 05:24 Other Labs: [facility] [address] [place] [address] CT Scan Report Signed Patient: Saúl Farias Unit #: [id number] : 1955 Age/Sex: 68 / M ADM Date: 07/17/23 Loc: [facility] Room/Bed: 277-[address]: Salima Shine MD Ordering Provider/Ordering MD: Salima Shine MD Date of Service: 07/17/23 Procedure(s): CT abdomen pelvis wo con [id number] Accession Number(s): [id number] Report Number: [id number] PROCEDURE INFORMATION: Exam: CT Abdomen And Pelvis Without Contrast Exam date and time: 07/17/2023 4:09 PM Age: 68 years old Clinical indication: Abdominal tenderness; Additional info: Ayden, liver cirrhosis, evaluate for hydronephrosis, ascites , known liver cirrhosis TECHNIQUE: Imaging protocol: Computed tomography of the abdomen and pelvis without contrast. Radiation optimization: All CT scans at this facility use at least one of these dose optimization techniques: automated exposure control; mA and/or kV adjustment per patient size (includes targeted exams where dose is matched to clinical indication); or iterative reconstruction. REPORTING DATA: Count of CT and Cardiac NM exams in prior 12 months: This patient has received 0 known CTs and 0 known cardiac nuclear medicine studies in the 12 months prior to the current study. COMPARISON: CT abdomen pelvis w con* [id number] 11/15/2021 2:09 PM RADIATION DOSE METRICS: Total DLP (mGy-cm): 891.81 FINDINGS: Lungs: Increased small right pleural effusion. Increased bibasilar atelectasis. Heart: New mild cardiomegaly. Coronary arteries: Unchanged moderate amount of coronary artery calcification. Liver: Unchanged small liver with shape consistent with cirrhosis. Otherwise, unremarkable. Gallbladder and bile ducts: Unchanged cholecystectomy. Otherwise, unremarkable. Pancreas: New 2 cm by 1.4 cm by 1.3 cm low-density lesion in the pancreatic neck. It is unclear if this is solid or cystic. Recommend further evaluation of this with contrast-enhanced MRI. Otherwise, unremarkable. Spleen: Unchanged mild splenomegaly. Otherwise, unremarkable. Adrenal glands: Normal. No mass. Kidneys and ureters: A few small nonobstructing renal calculi bilaterally. Some are new or increased in size. Otherwise, unremarkable. Stomach and bowel: Unchanged colonic diverticulosis. No acute diverticulitis. Otherwise, unremarkable. Appendix: Normal appendix. Intraperitoneal space: Unremarkable. No free air. No significant fluid collection. Vasculature: Unchanged moderate amount of arterial calcification. Unchanged vascular findings of portal hypertension. Lymph nodes: Unremarkable. No enlarged lymph nodes. Urinary bladder: New transurethral Cardenas catheter in the empty urinary bladder. Reproductive: Unremarkable as visualized. Bones/joints: Unchanged mild and moderate multilevel spondylosis. Otherwise, unremarkable. Soft tissues: Unchanged small fat containing umbilical hernia. CT/CT abdomen pelvis wo con [id number] IMPRESSION: 1. New 2 cm x 1.4 cm x 1.3 cm low-density lesion in the pancreatic neck. It is unclear if this is solid or cystic. Recommend contrast-enhanced MRI of it. 2. Increased small right pleural effusion with increased bibasilar atelectasis. 3. New mild cardiomegaly. 4. A few nonobstructing renal calculi bilaterally. Some are new or increased in size. 5. New transurethral Cardenas catheter in the empty urinary bladder. 6. Additional details as above. Unchanged. Micro: Microbiology 07/17/23 12:16 Urine Culture - Preliminary Urine,Clean Catch A&P Assessment and plan (1) Hepatic encephalopathy: Patient with known chronic liver disease and cirrhosis presenting today with altered mental status. Per discussion with family it appears he has been having gait instability, alteration of his sleep-wake cycle at least over the past few months. More acutely worsened over the last 24 hours. Ammonia is elevated at 62. Patient has not been taking his lactulose at home which likely precipitated the episode today Continue lactulose every 3 hours and titrate to 4-6 bowel movements. If unable to take p.o. lactulose will add rectal enemas. Continue rifaximin 550 mg twice daily. (2) Coagulopathy: Deranged INR at 1.4. No active signs of bleeding. (3) Cirrhosis of liver: Known diagnosis since 2019. MELD score of 16 correlating with 6% mortality at 3 months. (4) AYDEN (acute kidney injury): Gentle IV hydration normal saline at 50 cc an hour, closely monitor for any development of fluid overload. Plan DVT prophylaxis: SCDs only. Anticoagulation contraindicated due to low platelets. Plan for today. 07/18/2023: mental status appears to be about the same. He has not had any bowel movements. Continue lactulose until he has 4-6 bowel movements per day. Continue rifaximin. Tmax 100.2 Fahrenheit. Check COVID PCR. Check blood culture. Add ceftriaxone 1 g IV every 24 hours empirically while undergoing infectious workup. Does not appear to have any significant ascites on CT or on clinical exam. Less likely SBP. Pending urine culture. UA does not appear to be grossly infected. Evidence of some calcium oxalate crystals seen on UA. Small nonobstructing urinary calculi. Attestations 2 Medical Necessity Statement*: Admission for hepatic encephalopathy. Low-grade fever pending further evaluation. Coding Level of Care Code Acute Code for [facility] Diagnoses Hepatic encephalopathy K76.82 Coagulopathy D68.9 Cirrhosis of liver K74.60 AYDEN (acute kidney injury) N17.9
[2023-07-18 17:22] LABS: Glucose Point of Care 75 mg/dL (70-110)
[2023-07-18 17:48] LABS: Glucose Point of Care 86 mg/dL (70-110)
[2023-07-18] MEDS: cefTRIAXone 1,000 MG in sodium chloride 0.9% (plus) 50 ML 100 MG IV (18:11)
[2023-07-18 18:12] LABS: Ammonia 76 umol/L (16-60)
[2023-07-18 20:24] LABS: Adenovirus Not Detected (NOT DETECT); Chlamydia Pneumoniae Not Detected (NOT DETECT); Coronavirus 229E,HKU1,NL63,OC4 Not Detected (NOT DETECT); Human Metapneumovirus Not Detected (NOT DETECT); Human Rhinovirus/Enterovirus Not Detected (NOT DETECT); Influenza A Not Detected (NOT DETECT); Influenza A H1 Not Detected (NOT DETECT); Influenza A H1-2009 Not Detected (NOT DETECT); Influenza A H3 Not Detected (NOT DETECT); Influenza B Not Detected (NOT DETECT); Mycoplasma Pneumoniae Not Detected (NOT DETECT); Parainfluenza Virus Type 1 Not Detected (NOT DETECT); Parainfluenza Virus Type 2 Not Detected (NOT DETECT); Parainfluenza Virus Type 3 Not Detected (NOT DETECT); Parainfluenza Virus Type 4 Not Detected (NOT DETECT); Respiratory Syncytial Virus A Not Detected (NOT DETECT); Respiratory Syncytial Virus B Not Detected (NOT DETECT)
[2023-07-18 20:45] LABS: Glucose Point of Care 152 mg/dL (70-110)
[2023-07-18 21:10] LABS: SARS-COV-2 Detected (NOT DETECT)
[2023-07-18] MEDS: insulin lispro 100 unit/1 mL SUBCUT (21:45)
[2023-07-19] VITALS (12 sets, daily range): BP systolic 112–144; BP diastolic 62–73; PULSE 68–89; RESP 14–18; TEMP 36.4–37.2; O2SAT 94–98
[2023-07-19] MEDS: lactulose oral liq 20 gm/30 mL UDC PO ×7 (00:05→22:10)
[2023-07-19] MEDS: cyanocobalamin 1,000 mcg Tablet 1000 MCG PO (05:06)
[2023-07-19 05:17] LABS: Basophils % 0.3 %; Eosinophils # 0.1 10^3/uL (0.0-0.8); Eosinophils % 2.4 %; Hematocrit 27.2 % (37-53); Lymphocytes # 1.1 10^3/uL (0.8-4.8); Lymphocytes % 33.2 %; Mean Corpuscular HGB Conc 34.6 g/dL (30-55); Mean Corpuscular Hemoglobin 34.2 pg (27-33); Mean Corpuscular Volume 98.9 fl (82-101); Mean Platelet Volume 11.9 fL (7.4-10.4); Monocytes # 0.4 10^3/uL (0.2-0.9); Monocytes % 12.6 %; Neutrophils # 1.71 10^3/uL (1.8-7.7); Neutrophils % 51.2 %; Nucleated Red Blood Cells % 0 %; Platelet Count 63 10^3/cmm (157-399); Red Blood Count 2.75 10^6/uL (3.85-5.65); Red Cell Distribution Width 13.9 % (12.1-15.1); White Blood Count 3.34 10^3/uL (3.29-11.43)
[2023-07-19] MEDS: ondansetron 2 mg/ML SDV 2 mL 4 MG IVP (05:39)
[2023-07-19 05:42] LABS: Alanine Aminotransferase 28 U/L (0-41); Albumin Level 2.2 g/dL (3.5-5.2); Alkaline Phosphatase 68 U/L (40-130); Anion Gap 10.9 (5-19); Aspartate Amino Transferase 71 U/L (0-40); Blood Urea Nitrogen 24 mg/dL (8-23); Calcium 8.1 mg/dL (8.5-10.5); Carbon Dioxide 22 mmol/L (22-29); Chloride 109 mmol/L (98-107); Globulin 3.2 g/dL (1.3-4.6); Glomerular Filtration Rate 46.7 mL/min (90-130); Glucose 119 mg/dL (65-115); Osmolality Calculated 291 mOsm/kg (285-295); Potassium 3.9 mmol/L (3.5-5.1); Sodium 138 mmol/L (136-145); Total Bilirubin 0.7 mg/dL (0.15-1.2); Total Protein 5.4 g/dL (6.6-8.7)
[2023-07-19 06:40] LABS: Glucose Point of Care 136 mg/dL (70-110)
[2023-07-19] MEDS: pantoprazole DR 40 mg Tablet PO (08:17)
[2023-07-19] MEDS: sodium chloride 0.9% 1,000 ML 50 ML IV (09:42)
[2023-07-19] MEDS: remdesivir 100 MG in sodium chloride 0.9% (100 ml) 100 ML IV (11:17)
[2023-07-19 12:07] LABS: Glucose Point of Care 341 mg/dL (70-110)
[2023-07-19] MEDS: insulin lispro 100 unit/1 mL SUBCUT ×2 (12:13→22:10)
--- NOTE | 2023-07-19 14:18 | P.PN_ITS ---
Subjective 2 Subjective: More alert and awake today. thinks he is close to his baseline. Low-grade fever related to COVID-19. Patient tested positive yesterday. No current respiratory distress. Medications: Reviewed: Yes Vitals/I&O/Wt Last Vital Signs Temp 98.4 F 07/19/23 12:20 Pulse 68 07/19/23 12:20 Resp 18 07/19/23 12:20 BP 133/67 07/19/23 12:20 Pulse Ox 96 07/19/23 12:20 O2 Del Method Room Air 07/19/23 12:20 07/18/23 07/19/23 07/19/23 22:59 06:59 14:59 Intake Total 290 / 5026.111 6501 / 2060 Output Total 1750 / 1750 450 / 2200 Balance -1460 / 236.667 -450 / -542.706 7102 / 2060 Weight last 48 hrs Weight 96.116 kg Weight 93.185 kg Weight 72.575 kg Physical Exam 2 Narrative: General: No acute distress, AO x3 HEENT: PERRLA, pupils bilaterally equal and reactive, pallors not present Chest: Normal vesicular breath sounds, no added sounds, equal good air entry bilaterally CVS: S1-S2 regular, no murmurs, no tachycardia, no gallops, no rubs Abdomen: Soft, nontender, no organomegaly, bowel sounds present Neuro: No focal deficits, no facial deformity, AO x3, power 5/5 in all limbs Urinary Catheter Management: Cardenas: Cath Placed During This Visit: yes Reason for Continuing Indwelling Catheter: Other Urinary Catheter Date of Insertion: 07/17/23 Urinary Catheter Time of Insertion: 12:19 Data 07/19/23 04:42 07/19/23 04:42 Micro: Microbiology 07/17/23 12:16 Urine Culture - Final Urine,Clean Catch 07/19/23 04:42 Blood Culture - Preliminary Blood SPECIMEN COLLECTED 07/19/23 04:44 Blood Culture - Preliminary Blood SPECIMEN COLLECTED A&P Assessment and plan (1) Hepatic encephalopathy: Patient with known chronic liver disease and cirrhosis presenting today with altered mental status. Per discussion with family it appears he has been having gait instability, alteration of his sleep-wake cycle at least over the past few months. More acutely worsened over the last 24 hours. Ammonia is elevated at 62. Patient has not been taking his lactulose at home which likely precipitated the episode today Continue lactulose every 3 hours and titrate to 4-6 bowel movements. If unable to take p.o. lactulose will add rectal enemas. Continue rifaximin 550 mg twice daily. (2) Coagulopathy: Deranged INR at 1.4. No active signs of bleeding. (3) Cirrhosis of liver: Known diagnosis since 2019. MELD score of 16 correlating with 6% mortality at 3 months. (4) AYDEN (acute kidney injury): Gentle IV hydration normal saline at 50 cc an hour, closely monitor for any development of fluid overload. Plan DVT prophylaxis: SCDs only. Anticoagulation contraindicated due to low platelets. Plan for today. 07/18/2023: mental status appears to be about the same. He has not had any bowel movements. Continue lactulose until he has 4-6 bowel movements per day. Continue rifaximin. Tmax 100.2 Fahrenheit. Check COVID PCR. Check blood culture. Add ceftriaxone 1 g IV every 24 hours empirically while undergoing infectious workup. Does not appear to have any significant ascites on CT or on clinical exam. Less likely SBP. Pending urine culture. UA does not appear to be grossly infected. Evidence of some calcium oxalate crystals seen on UA. Small nonobstructing urinary calculi. Plan for today: 07/19/2023: Mental status is improving today. Per at bedside he is nearly back to his baseline. He has had 4-6 bowel movements over the course of yesterday. Ammonia was creeping up to 72, however has not been retested since he has had the bowel movements. Tested positive for COVID-19 pneumonia. High risk of progression given underlying chronic liver disease. Would be a candidate to start antiviral treatment with Paxlovid, however this is not available on inpatient formulary therefore we will start remdesivir. Incidentally noted to have a stage I pressure ulcer over the buttock area. This appears to be chronic. states that patient has not been very ambulatory and prefers to sit in a recliner for most of the day. Currently ordered for zinc oxide paste for the same. Anticipate discharge in the upcoming 24 hours if patient continues to be at his recent baseline. Attestations 2 Medical Necessity Statement*: Clinically improving. If continues to improve over the next 24 hours anticipate discharge home with family. Coding Level of Care Code Acute Code for [facility] Diagnoses Hepatic encephalopathy K76.82 Coagulopathy D68.9 Cirrhosis of liver K74.60 AYDEN (acute kidney injury) N17.9
[2023-07-19 16:54] LABS: Glucose Point of Care 89 mg/dL (70-110)
[2023-07-19] MEDS: cefTRIAXone 1,000 MG in sodium chloride 0.9% (plus) 50 ML 100 MG IV (17:06)
[2023-07-19 20:51] LABS: Glucose Point of Care 255 mg/dL (70-110)
[2023-07-20] VITALS (7 sets, daily range): BP systolic 136–159; BP diastolic 68–74; PULSE 65–80; RESP 18; TEMP 36.7–36.9; O2SAT 95–97; BMI 34.0
[2023-07-20] MEDS: lactulose oral liq 20 gm/30 mL UDC PO ×3 (02:35→10:48)
[2023-07-20] MEDS: cyanocobalamin 1,000 mcg Tablet 1000 MCG PO (05:39)
[2023-07-20 06:21] LABS: Glucose Point of Care 108 mg/dL (70-110)
[2023-07-20 06:55] LABS: Basophils % 0.3 %; Eosinophils # 0.2 10^3/uL (0.0-0.8); Eosinophils % 6.1 %; Hematocrit 31.9 % (37-53); Lymphocytes # 1.6 10^3/uL (0.8-4.8); Lymphocytes % 42.2 %; Mean Corpuscular HGB Conc 33.2 g/dL (30-55); Mean Corpuscular Hemoglobin 33.3 pg (27-33); Mean Corpuscular Volume 100.3 fl (82-101); Monocytes # 0.4 10^3/uL (0.2-0.9); Monocytes % 10.4 %; Neutrophils # 1.53 10^3/uL (1.8-7.7); Nucleated Red Blood Cells % 0 %; Platelet Count 69 10^3/cmm (157-399); Red Blood Count 3.18 10^6/uL (3.85-5.65); Red Cell Distribution Width 13.9 % (12.1-15.1); White Blood Count 3.74 10^3/uL (3.29-11.43)
[2023-07-20 07:22] LABS: Anion Gap 9.5 (5-19); Blood Urea Nitrogen 18 mg/dL (8-23); Carbon Dioxide 24 mmol/L (22-29); Chloride 112 mmol/L (98-107); Glomerular Filtration Rate 50.5 mL/min (90-130); Potassium 3.5 mmol/L (3.5-5.1); Sodium 142 mmol/L (136-145)
[2023-07-20 07:23] LABS: Alanine Aminotransferase 26 U/L (0-41); Albumin Level 2.2 g/dL (3.5-5.2); Alkaline Phosphatase 68 U/L (40-130); Aspartate Amino Transferase 60 U/L (0-40); Globulin 3.3 g/dL (1.3-4.6); Glucose 117 mg/dL (65-115); Osmolality Calculated 297 mOsm/kg (285-295); Total Bilirubin 0.8 mg/dL (0.15-1.2); Total Protein 5.5 g/dL (6.6-8.7)
[2023-07-20 07:24] LABS: Ammonia 38 umol/L (16-60)
[2023-07-20] MEDS: pantoprazole DR 40 mg Tablet PO (08:48)
[2023-07-20] MEDS: sodium chloride 0.9% 1,000 ML 50 ML IV (10:48)
[2023-07-20 11:37] LABS: Glucose Point of Care 131 mg/dL (70-110)
[2023-07-20] MEDS: remdesivir 100 MG in sodium chloride 0.9% (100 ml) 100 ML IV (12:46)
--- NOTE | 2023-07-20 16:00 | PM.DCS ---
Discharge Providers Date of Admission: 07/17/23 11:59 Date of Discharge: August 13, 2023 Attending Provider at Admission: Salima Shine MD Attending Provider at Discharge: Salima Shine MD Primary Care Provider: Bridger Alfred MD Diagnoses at Discharge Discharge Diagnosis (1) Hepatic encephalopathy: Status: Acute (2) Coagulopathy: Status: Acute (3) Cirrhosis of liver: Status: Acute (4) AYDEN (acute kidney injury): Status: Acute (5) COVID-19: Status: Acute Reason for Visit Reason for Visit: CONFUSION, WEAKNESS Brief History: Patient with known chronic liver disease and cirrhosis presented with altered mental status.Hospital course as below: Hospital Course Hospital Course (1) Hepatic encephalopathy: Patient with known chronic liver disease and cirrhosis presenting with altered mental status. Ammonia was elevated at 62. Patient has not been taking his lactulose at home which likely precipitated the episode Patient started treatment with scheduled lactulose and rifaximin and improved significantly mentation back at baseline by discharge ammonia normalized (2) Cirrhosis of liver: Known diagnosis since 2019. MELD score of 16 continue outpatient follow up with GI in [place] (3) AYDEN (acute kidney injury): resolved with gentle iv hydration (4) Covid 19 tested due to low grade fevers received remdisivir while inpatitn and then transitioned to paxlovid due to high risk of progression. No steroids indicated given lack of respiratory symptoms Overall improved back to baseline, discharged in stable condition Physical Exam Narrative: General: No acute distress, AO x3 HEENT: PERRLA, pupils bilaterally equal and reactive, pallors not present Chest: Normal vesicular breath sounds, no added sounds, equal good air entry bilaterally CVS: S1-S2 regular, no murmurs, no tachycardia, no gallops, no rubs Abdomen: Soft, nontender, no organomegaly, bowel sounds present Neuro: No focal deficits, no facial deformity, AO x3, power 5/5 in all limbs Urinary Catheter Management: Cardenas: Cath Placed During This Visit: yes, but has since been removed by the nurse Reason for Continuing Indwelling Catheter: Decision to DC Catheter Urinary Catheter Date of Insertion: 07/17/23 Urinary Catheter Time of Insertion: 12:19 Date Urinary Catheter Removed: 07/20/23 Time Urinary Catheter Discontinued: 13:55 Discharge Data Studies Completed and Pending Completed Studies During Hospitalization Category Date Time Status CT abdomen pelvis wo con [id number] Routine Cat Scan 07/17/23 15:[address] head wo con* [id number] Stat Cat Scan 07/17/23 10:54 Completed XR chest 1V portable [id number] Stat Exams 07/17/23 10:54 Completed Radiology Impressions Abdomen/Pelvis CT 07/17/23 15:25 IMPRESSION: 1. New 2 cm x 1.4 cm x 1.3 cm low-density lesion in the pancreatic neck. It is unclear if this is solid or cystic. Recommend contrast-enhanced MRI of it. 2. Increased small right pleural effusion with increased bibasilar atelectasis. 3. New mild cardiomegaly. 4. A few nonobstructing renal calculi bilaterally. Some are new or increased in size. 5. New transurethral Cardenas catheter in the empty urinary bladder. 6. Additional details as above. Unchanged. Laboratory Results WBC 3.74 10^3/uL (3.29-11.43) 07/20/23 06:35 RBC 3.18 10^6/uL (3.85-5.65) L 07/20/23 06:35 Hgb 10.60 g/dL (11.27-16.99) L 07/20/23 06:35 Hct 31.9 % (37-53) L 07/20/23 06:35 MCV 100.3 fl (82-101) 07/20/23 06:35 MCH 33.3 pg (27-33) H 07/20/23 06:35 MCHC 33.2 g/dL (30-55) 07/20/23 06:35 RDW 13.9 % (12.1-15.1) 07/20/23 06:35 Plt Count 69 10^3/cmm (157-399) L 07/20/23 06:35 MPV 11.0 fL (7.4-10.4) H 07/20/23 06:35 Neut % (Auto) 41.0 % 07/20/23 06:35 Lymph % (Auto) 42.2 % 07/20/23 06:35 [place] % (Auto) 10.4 % 07/20/23 06:35 Eos % (Auto) 6.1 % 07/20/23 06:35 Baso % (Auto) 0.3 % 07/20/23 06:35 Neut # (Auto) 1.53 10^3/uL (1.8-7.7) L 07/20/23 06:35 Lymph # (Auto) 1.6 10^3/uL (0.8-4.8) 07/20/23 06:35 [place] # (Auto) 0.4 10^3/uL (0.2-0.9) 07/20/23 06:35 Eos # (Auto) 0.2 10^3/uL (0.0-0.8) 07/20/23 06:35 Baso # (Auto) 0.0 10^3/uL (0.0-0.1) 07/20/23 06:35 Nucleated RBC % (auto) 0 % 07/20/23 06:35 Nucleated RBCs # 0.0 /100WBC 07/20/23 06:35 PT 17.70 SECONDS (12.1-14.9) H 07/17/23 11:06 INR 1.40 (0.8-1.2) H 07/17/23 11:06 Sodium 142 mmol/L (136-145) 07/20/23 06:35 Potassium 3.5 mmol/L (3.5-5.1) 07/20/23 06:35 Chloride 112 mmol/L (98-107) H 07/20/23 06:35 Carbon Dioxide 24 mmol/L (22-29) 07/20/23 06:35 Anion Gap 9.5 (5-19) 07/20/23 06:35 BUN 18 mg/dL (8-23) 07/20/23 06:35 Creatinine 1.4 mg/dL (0.7-1.2) H 07/20/23 06:35 GFR Calculation 50.5 mL/min (90-130) L 07/20/23 06:35 Glucose 117 mg/dL (65-115) H 07/20/23 06:35 POC Glucose 131 mg/dL (70-110) H 07/20/23 10:49 Calculated Osmolality 297 mOsm/kg (285-295) H 07/20/23 06:35 Calcium 8.0 mg/dL (8.5-10.5) L 07/20/23 06:35 Magnesium 1.9 mg/dL (1.7-2.3) 07/17/23 11:06 Total Bilirubin 0.8 mg/dL (0.15-1.2) 07/20/23 06:35 AST 60 U/L (0-40) H 07/20/23 06:35 ALT 26 U/L (0-41) 07/20/23 06:35 Alkaline Phosphatase 68 U/L (40-130) 07/20/23 06:35 Ammonia 38 umol/L (16-60) 07/20/23 06:35 Total Protein 5.5 g/dL (6.6-8.7) L 07/20/23 06:35 Albumin 2.2 g/dL (3.5-5.2) L 07/20/23 06:35 Globulin 3.3 g/dL (1.3-4.6) 07/20/23 06:35 TSH 2.70 uIU/mL (0.27-4.20) 07/17/23 11:06 Urine Color Brown (Yellow) A 07/17/23 12:16 Urine Appearance Clear (CLEAR) 07/17/23 12:16 Urine pH 5 (5-7) 07/17/23 12:16 Ur Specific [place] 1.030 (1.005-1.030) 07/17/23 12:16 Urine Protein 3+ (Negative) H 07/17/23 12:16 Urine Glucose (UA) Trace (Normal) H 07/17/23 12:16 Urine Ketones 1+ (Negative) H 07/17/23 12:16 Urine Blood 3+ (Negative) H 07/17/23 12:16 Urine Nitrate Negative (Negative) 07/17/23 12:16 Urine Bilirubin Neg (Negative) 07/17/23 12:16 Urine Urobilinogen 1 mg/dL (Negative) H 07/17/23 12:16 Ur Leukocyte Esterase Negative (Negative) 07/17/23 12:16 Urine RBC 15-25 /hpf (0-2) H 07/17/23 12:16 Urine WBC 0-4 /hpf (0-5) H 07/17/23 12:16 Ur Squamous Epith Cells Rare /hpf (0-5) 07/17/23 12:16 Other Crystals Caalcium carb tr /hpf 07/17/23 12:16 Amorphous Sediment Trace /hpf 07/17/23 12:16 Urine Bacteria Trace /hpf (NONE) 07/17/23 12:16 Hyaline Casts 10-15 /lpf H 07/17/23 12:16 Urine Mucus 3+ /hpf 07/17/23 12:16 Ethyl Alcohol < 10 mg/dL (0-10) 07/17/23 11:06 Coronavirus 229E (PCR) Not detected (NOT DETECT) 07/18/23 16:00 SARS-CoV-2 (PCR) Detected (NOT DETECT) A 07/18/23 16:00 Vitals Last Vital Signs Temp 98.1 F 07/20/23 15:03 Pulse 73 07/20/23 15:03 Resp 18 07/20/23 15:03 BP 159/71 07/20/23 15:03 Pulse Ox 95 07/20/23 15:03 O2 Del Method Room Air 07/20/23 11:07 Discharge Plan Discharge Patient Disposition: Home Condition: Stable Prescriptions: New lactulose 20 gram/30 mL Solution 30 g PO Q8H 30 Days Qty: 500 2RF Continued glimepiride 2 mg tablet 2 mg PO BID Qty: 180 3RF Multivitamin 50 Plus Tablet 1 tab PO QAM vitamin B complex Tablet 1 tab PO QAM Fiber Gummies 2 gram Tablet,Chewable 6 g PO DAILY Calcium With Vit D Gummies 2 tab PO DAILY Vitamin B 12 Gummies 2 tab PO DAILY Vitamin C Gummies 2 tab PO DAILY propranolol 10 mg tablet 10 mg PO BID metformin 1,000 mg tablet 1,000 mg PO BID Lexapro 10 mg tablet 10 mg PO QAM Xifaxan 550 mg tablet 550 mg PO BID PRN (Reason: doesnt take consistently) Discharge Orders: Discharge Order (Routine); Ordered 07/20/23 Ordered By: Salima Shine Referrals: Bridger Alfred MD [Primary Care Provider] - 7-10 days (We have notified your physician's clinic of the need for a follow-up appointment to be scheduled. If you have not heard from them within the next 2 business days, please call them directly. ) Discharge Diet: Usual diet Discharge Activity: Resume usual activity Patient Instructions: Lactulose (By mouth), Nirmatrelvir/Ritonavir (By mouth), Encephalopathy (GEN), Opioid Safety Discharge Attestations Time Spent in Discharge Care*: greater than 30 min Quality Metrics Clinical Quality Measures [ No reported AMI, CVA or VTE this stay] Coding Level of Care Code Acute Code for [facility] Diagnoses Hepatic encephalopathy K76.82 Coagulopathy D68.9 Cirrhosis of liver K74.60 AYDEN (acute kidney injury) N17.9 COVID-19 U07.1
== END 2023-07-20 15:32 | disposition home or self-care (01) | DRG 441 ==
LOC: ER 12:08 → MEDSURG 14:42
PROVIDERS: Admitting Provider Student in an Organized Health Care Education/Training Program; Emergency Provider Emergency Medicine; PCP Family Medicine; Visit Provider Student in an Organized Health Care Education/Training Program
DX: K76.82 Hepatic encephalopathy (principal); J12.82 Pneumonia due to coronavirus disease 2019; U07.1 COVID-19; D68.9 Coagulation defect, unspecified; K76.6 Portal hypertension; N17.9 Acute kidney failure, unspecified; E11.9 Type 2 diabetes mellitus without complications; F32.A Depression, unspecified; Z87.891 Personal history of nicotine dependence; K74.69 Other cirrhosis of liver; L89.301 Pressure ulcer of unspecified buttock, stage 1
CPT/HCPCS: 36415; 36416; 51702; 70450; 71045; 74176; 80053; 80307; 81001; 82140; 82962; 83735; 84443; 85025; 85610; 87040; 87086; 87635; 93005; 93306; 96372; 99285; J0248; J0696; J1815; J2405; J7030

== ENCOUNTER 2023-08-05 06:00 | Outpatient (RCR) | payer MEDICARE, SELFPAY | END 2023-09-04 23:59 | disposition home or self-care (01) | LOC: SPT 06:00 | PROVIDERS: PCP Family Medicine; Visit Provider Family Medicine | DX: M54.32 Sciatica, left side (principal) | CPT/HCPCS: 97110; 97112 ==

== ENCOUNTER → 2023-09-05 12:22 | Outpatient (BNVA) | payer MEDICARE, SELFPAY | PROVIDERS: PCP Family Medicine; Referring Provider Family Medicine; Visit Provider Internal Medicine | DX: R07.9 Chest pain, unspecified (principal); R00.1 Bradycardia, unspecified | CPT/HCPCS: 93005 ==

== ENCOUNTER 2023-09-05 14:16 | Outpatient (RCR) | payer MEDICARE, SELFPAY | END 2023-10-03 23:59 | disposition home or self-care (01) | LOC: SPT 14:16 | PROVIDERS: PCP Family Medicine; Visit Provider Family Medicine | DX: M54.32 Sciatica, left side (principal); I35.0 Nonrheumatic aortic (valve) stenosis; F32.A Depression, unspecified; K74.60 Unspecified cirrhosis of liver | CPT/HCPCS: 97110; 99204 ==

== ENCOUNTER → 2024-02-03 07:42 | Outpatient (BNVA) | payer MEDICARE, SELFPAY | PROVIDERS: PCP Family Medicine; Visit Provider Family Medicine | DX: F32.A Depression, unspecified (principal); E11.9 Type 2 diabetes mellitus without complications; D64.9 Anemia, unspecified; Z79.899 Other long term (current) drug therapy | CPT/HCPCS: 80053; 80061; 83036; 85025 ==

== ENCOUNTER 2024-03-12 08:05 | Outpatient (CLI) | payer MEDICARE, SELFPAY ==
--- NOTE | 2024-03-12 08:07 | US_ITS ---
WS: [id number] RIGHT UPPER QUADRANT ULTRASOUND HISTORY: Cirrhosis COMPARISON: 03/29/2020, 07/17/2023 Liver: 12.5 cm in length. Small caliber liver with coarse echotexture throughout and a surface margin . No mass. Portal Vein: Portal vein not identified with certainty. Could be thrombosed or cavernous transformati on. This may be a new finding since 03/29/2020. The portal vein was much better visualized at that mak e. Gallbladder: Prior cholecystectomy. CBD: 0.4 cm Pancreas: Not visualized. Right kidney: 10.2 cm in length. Normal size and echogenicity. No hydronephrosis or mass. Aorta and IVC: Poorly visualized. No ascites. US/US abdomen limited [id number] IMPRESSION: 1. Difficult and limited RIGHT upper quadrant evaluation due to body habitus. 2. Cirrhotic liver with no mass. 3. Portal vein is not identified as patent. Lack of visualization may be diffi culty seeing versus thrombosed portal vein with cavernous transformation. 4. Prior cholecystectomy. 5. Nonvisualization of the pancreas.
== END 2024-03-12 08:06 | disposition home or self-care (01) ==
PROVIDERS: PCP Family Medicine; Visit Provider Nurse Practitioner Family
DX: K74.60 Unspecified cirrhosis of liver (principal); I85.00 Esophageal varices without bleeding; K76.82 Hepatic encephalopathy; K86.2 Cyst of pancreas; K63.5 Polyp of colon; Z90.49 Acquired absence of other specified parts of digestive tract
CPT/HCPCS: 76705

== ENCOUNTER → 2024-04-29 11:18 | Outpatient (BNVA) | payer MEDICARE, SELFPAY | PROVIDERS: PCP Family Medicine; Visit Provider Family Medicine | DX: E11.9 Type 2 diabetes mellitus without complications (principal); K74.69 Other cirrhosis of liver; K76.82 Hepatic encephalopathy; R60.9 Edema, unspecified; F32.A Depression, unspecified | CPT/HCPCS: 80053; 82140; 82607; 83735; 83880; 84443; 85025; 86140 ==

== ENCOUNTER → 2024-05-04 10:55 | Outpatient (BNVA) | payer MEDICARE, SELFPAY | PROVIDERS: PCP Family Medicine; Visit Provider Internal Medicine | DX: I35.0 Nonrheumatic aortic (valve) stenosis (principal); F32.A Depression, unspecified; K74.60 Unspecified cirrhosis of liver; Z87.891 Personal history of nicotine dependence | CPT/HCPCS: 99214 ==

== ENCOUNTER → 2024-05-20 11:53 | Outpatient (BNVA) | payer MEDICARE, SELFPAY | PROVIDERS: PCP Family Medicine; Visit Provider Family Medicine | DX: K74.69 Other cirrhosis of liver (principal); K74.60 Unspecified cirrhosis of liver | CPT/HCPCS: 80053; 82140 ==

== ENCOUNTER 2024-06-03 06:07 | Outpatient (CLI) | payer MEDICARE, SELFPAY ==
--- NOTE | 2024-06-03 06:15 | USCV_ITS ---
Saúl Farias Age: 69 Gender: M : 1955 Exam Date: 06/03/2024 06:22 Ordering Phys: Technologist: Exam Location: [facility] [place] Indication: as BP: 130 / 60 HR: 76 Rhythm: Sinus Technical Quality: Adequate MEASUREMENTS (Male / Female) Normal Values 2D ECHO LV Diastolic Diameter PLAX 5.1 cm 4.2 - 5.9 / 3.9 - 5.3 cm IVS Diastolic Thickness 1.2 cm 0.6 - 1.0 / 0.6 - 0.9 cm IVS Systolic Thickness 1.8 cm LVPW Diastolic Thickness 1.8 cm 0.6 - 1.0 / 0.6 - 0.9 cm LVPW Systolic Thickness 1.5 cm LVOT Diameter 2.4 cm LV Ejection Fraction 2D Teich 65.6 % LV Ejection Fraction MOD 4C 66.8 % LV Ejection Fraction MOD 2C 74.2 % LV Ejection Fraction 2C AL 74.5 % LA Diameter 3.6 cm RA Systolic Volume 4C AL 57.7 ml RA Systolic Volume 4C MOD 55.4 ml LA Sys Volume AL 88.0 cm cubed LA Sys Volume Index AL 39.1 cm cubed/m squared Aorta at Sinotubular Diameter 2.7 cm M-MODE LA Ao Ratio MM 1.3 AV Cusp Separation MM 2.2 cm DOPPLER AV Peak Velocity 494.0 cm/s LVOT Peak Velocity 102.0 cm/s AV Area Cont Eq vti 0.9 cm squared AV Area Cont Eq pk 0.9 cm squared MV Peak Velocity 152.0 cm/s MV Area PHT 2.7 cm squared Mitral E to A Ratio 1.2 TV Peak Velocity 314.0 cm/s TR Peak Velocity 390.0 cm/s TR Peak Gradient 60.8 mmHg TV Peak E Velocity 147.0 cm/s Right Atrial Pressure 3.0 mmHg Pulmonary Artery Systolic Pressu 63.8 mmHg PV Peak Velocity 143.0 cm/s FINDINGS Left Ventricle Mild to moderate left ventricle hypertrophy. Normal LV systolic function. Estimated LVEF 65%. Right Ventricle Normal right ventricular size and systolic function. Right Atrium Normal right atrial size. Left Atrium Normal left atrial size. Mitral Valve Thickened mitral valve. Mitral annular calcification. No mitral valve stenosis. Trace mitral valve regurgitation. Aortic Valve Thickened calcified aortic valve. There is a severe aortic stenosis (peak gradient 105 mmHg, mean gradient 55 mmHg, aortic valve velocity max 5 m/s, calculated aortic valve area 0.8 cm squared). Tricuspid Valve Structurally normal tricuspid valve. Trace tricuspid valve regurgitation. Tricuspid gradient was not assessed appropriately. Pulmonic Valve Structurally normal pulmonic valve. Mild pulmonary valve regurgitation. Pericardium No pericardial effusion. Aorta Normal size aortic root and proximal ascending aorta. IVC Inferior vena cava not visualized. CONCLUSIONS Mild to moderate left ventricle hypertrophy. Normal LV systolic function. Normal LVEF 65%. Normal right ventricle size and systolic function. Thickened mitral valve with mild annular calcification but no mitral stenosis. Thickened calcified aortic valve with severe aortic stenosis (peak gradient 105 mmHg, mean gradient 55 mmHg, max aortic velocity 5 m/s, calculated aortic valve area 0.8 cm squared). Westley Joe MD (Electronically Signed) Final Date: 03 June 2024 10:55 S
== END 2024-06-03 06:08 | disposition home or self-care (01) ==
LOC: RAD 06:08
PROVIDERS: PCP Family Medicine; Visit Provider Internal Medicine
DX: I35.0 Nonrheumatic aortic (valve) stenosis (principal); I51.7 Cardiomegaly; I34.81 Nonrheumatic mitral (valve) annulus calcification; I35.2 Nonrheumatic aortic (valve) stenosis with insufficiency
CPT/HCPCS: 93306

== ENCOUNTER 2024-06-25 12:41 | Outpatient (CLI) | payer MEDICARE, SELFPAY ==
[2024-06-25 13:15] LABS: INR 1.41 (0.8-1.2)
[2024-06-25 13:28] LABS: Tumor Marker Alpha Fetoprotein 4.4 ng/mL (0-8.3)
[2024-06-25 13:39] LABS: Alanine Aminotransferase 23 U/L (0-41); Albumin Level 2.4 g/dL (3.5-5.2); Alkaline Phosphatase 77 U/L (40-130); Anion Gap 9.6 (5-19); Aspartate Amino Transferase 47 U/L (0-40); Blood Urea Nitrogen 30 mg/dL (8-23); Calcium 8.9 mg/dL (8.5-10.5); Carbon Dioxide 24 mmol/L (22-29); Chloride 113 mmol/L (98-107); Globulin 3.6 g/dL (1.3-4.6); Glomerular Filtration Rate 40.3 mL/min (90-130); Glucose 125 mg/dL (65-115); Osmolality Calculated 302 mOsm/kg (285-295); Potassium 4.6 mmol/L (3.5-5.1); Sodium 142 mmol/L (136-145); Total Bilirubin 1.6 mg/dL (0.15-1.2)
== END 2024-06-25 12:42 | disposition home or self-care (01) ==
LOC: LAB 12:42
PROVIDERS: PCP Family Medicine; Visit Provider Internal Medicine
DX: K74.60 Unspecified cirrhosis of liver (principal)
CPT/HCPCS: 36415; 80053; 82105; 85610

== ENCOUNTER → 2024-06-29 14:40 | Outpatient (BNVA) | payer MEDICARE, SELFPAY | PROVIDERS: PCP Family Medicine; Visit Provider Internal Medicine | DX: I35.0 Nonrheumatic aortic (valve) stenosis (principal); Z87.891 Personal history of nicotine dependence | CPT/HCPCS: 99214 ==

== ENCOUNTER 2024-07-20 16:11 | Outpatient (CLI) | payer MEDICARE, SELFPAY ==
[2024-07-20 16:25] LABS: Basophils # 0.1 10^3/uL (0.0-0.1); Eosinophils # 0.5 10^3/uL (0.0-0.8); Eosinophils % 7.7 %; Hematocrit 32.7 % (37-53); Lymphocytes # 1.7 10^3/uL (0.8-4.8); Lymphocytes % 27.8 %; Mean Corpuscular HGB Conc 34.3 g/dL (30-55); Mean Corpuscular Hemoglobin 34.6 pg (27-33); Mean Corpuscular Volume 100.9 fl (82-101); Mean Platelet Volume 11.6 fL (7.4-10.4); Monocytes # 0.5 10^3/uL (0.2-0.9); Monocytes % 8.2 %; Neutrophils # 3.29 10^3/uL (1.8-7.7); Nucleated Red Blood Cells % 0 %; Platelet Count 79 10^3/cmm (157-399); Red Blood Count 3.24 10^6/uL (3.85-5.65); Red Cell Distribution Width 14.1 % (12.1-15.1); White Blood Count 5.98 10^3/uL (3.29-11.43)
[2024-07-20 17:25] LABS: Alanine Aminotransferase 21 U/L (0-41); Albumin Level 2.3 g/dL (3.5-5.2); Alkaline Phosphatase 79 U/L (40-130); Anion Gap 13.9 (5-19); Aspartate Amino Transferase 41 U/L (0-40); Blood Urea Nitrogen 28 mg/dL (8-23); Calcium 9.1 mg/dL (8.5-10.5); Carbon Dioxide 25 mmol/L (22-29); Chloride 109 mmol/L (98-107); Globulin 3.7 g/dL (1.3-4.6); Glomerular Filtration Rate 46.5 mL/min (90-130); Glucose 285 mg/dL (65-115); Osmolality Calculated 312 mOsm/kg (285-295); Potassium 4.9 mmol/L (3.5-5.1); Sodium 143 mmol/L (136-145); Total Bilirubin 1.3 mg/dL (0.15-1.2)
== END 2024-07-20 16:12 | disposition home or self-care (01) ==
PROVIDERS: PCP Family Medicine; Visit Provider Internal Medicine
DX: I35.0 Nonrheumatic aortic (valve) stenosis (principal); R06.02 Shortness of breath; R01.1 Cardiac murmur, unspecified; R60.9 Edema, unspecified
CPT/HCPCS: 36415; 80053; 85025

== ENCOUNTER 2024-07-22 05:56 | Outpatient (CLI) | payer MEDICARE, SELFPAY ==
[2024-07-22] VITALS (49 sets, daily range): BP systolic 115–189; BP diastolic 52–94; PULSE 62–74; RESP 6–33; TEMP 36.7; O2SAT 94–99; BMI 34.0
[2024-07-22] MEDS: sodium chloride 0.9% 200 ML 999 ML IV (06:20)
[2024-07-22] MEDS: sodium chloride 0.9% 1,000 ML 100 ML IV (06:47)
[2024-07-22] MEDS: aspirin 325 mg EC Tablet PO (09:05)
[2024-07-22] MEDS: diphenhydrAMINE 50 mg Capsule PO (09:05)
--- NOTE | 2024-07-22 09:44 | XACV_ITS ---
Exam Room: 2 Ht: 173 cm Wt: 102 kg BSA: 2.24 m2 Gender: Male : 1955 Any Known Allergies: No known allergies Exam Priority: Routine Procedure(s): Procedure Description: Diagnostic procedure Procedure Description: Left Heart Catheterization Procedure Description: Right Heart Catheterization Diagnostic Cath Status: Elective Diagnostic Findings * INDICATION: Severe aortic stenosis. * Circumflex has no significant disease. * Distal RCA has moderate stenosis. Ostial posterior Descending Right: severe 80% stenosis, MIR: 3 flow. * Right heart cath: Elevated left sided cardiac pressures. Cardiac output is 8.45. Cardiac index in 3.9. PVR<3WU. Moderate post capillary pulmonary hypertension. * Mid Left Anterior Descending: severe 80% stenosis, MIR: 3 flow. * Left Main: luminal irregularities 20% stenosis, MIR: 3 flow. * Coronary angiography shows right dominance. Conclusions 1. Severe mid LAD and PDA stenosis. Patient was severe aortic stenosis. Patient is Zoroastrian, has history of esophageal varices, liver cirrhosis and a low platelet count. We will refer her to structural team in [place]. 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 Recommendations * We will refer to structural team for TAVR evaluation. * Outpatient cardiology follow up in 2 weeks. Anticoagulation: Heparin Pressures Phase:Rest AO : 106 / 63 ( 82 ) @ 10:30:00 AM RV : 49 / 2 / 11 @ 10:21:00 AM PA : 45 / 17 ( 25 ) @ 10:20:00 AM RA : a wave = 13 v wave = 10 mean = 8 @ 10:22:00 AM PCW : a wave = 23 v wave = 29 mean = 18 @ 10:20:00 AM O2 Content Phase:Rest PA : O2 Content O2: 78.1 @ 10:20:00 AM Saturations Phase:Rest AO : 98 @ 10:30:00 AM PA : 78 @ 10:20:00 AM Cardiac Output Phase:Rest Nikolas : 8 @ 10:46:33 AM Nikolas Cardiac Index: 4 @ 10:46:33 AM Flow Phase:Rest Qp : 8 @ 10:46:33 AM Qs : 8 @ 10:46:33 AM Clinical Evaluation EBL: 5mL-10mL Procedural Details Procedure Consent Obtained. Pre-Procedure Time Out. Identified patient by full name and date of as verbalized by the patient/guarantor. Does the consent match the physician's order: Yes. Accurate & Complete Informed Consent: Yes. Inpatient/Outpatient History & Physical on Chart: Yes. If H&P is completed, is and addenduem needed: No. Visualize and Verify Site with Patient/Guarantor: N/A. Relevant Radiology Images available: Yes. The risks, benefits, and alternatives of sedation and/or procedure were discussed by physician. The patient agrees to continue. Procedure started. [facility] Clinical Fraility Score: 6: Moderately Frail. 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 Chest Pain Symptom Assessment: Typical Angina Symptoms. Cardiovascular Instability: No. Correct patient, site and procedure confirmed by cath team. PERRLA. 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 Lungs clear x 5 lobes. IV Site on Arrival: 20 gauge in the right anticubital. IV Fluids: 0.9% NaCl at KVO. 500 mL infused prior to electronic lab technician. Pre Procedural Pulses: right dorsalis pedis was Doppled. Pre Procedural Pulses: left dorsalis pedis was 3+. Pre Procedural Pulses: bilateral posterior tibial was Doppled. Pre Procedural Pulses: bilateral radial was 3+. Patient on room air. right groin was prepped with chloroprep then draped in the usual sterile fashion. right radial was prepped with chloroprep then draped in the usual sterile fashion. Physician notified. Baseline sample Acquired. HR: 69 BPM. Patient's family in CPRU room #3. Dr. Jean will update at the completion of the procedure. Equipment: 6F - Radial. Cardiac Cath Pack. ACIST Manifold Kit Model BT 2000. Heparinized Saline (2 units/mL), 1000 mL bag. Physician arrived. Physician scrubbed in. Immediate Pre-Procedure Time Out. Correct Patient: Yes; Correct Procedure: Yes; Correct Site: Yes; Correct Patient Position: Yes; Correct Supplies: Yes; Dried Flammable Prep: Yes; Blood Products Available: N/A. Kit wire in through the existing 20g PIV in the right brachial vein. Existing PIV catheter out. Lidocaine 1% infiltrated to the right brachial. Linden-Annamaria MON catheter inserted. 0.014. Oximetry samples were obtained. Normal venous range: 60-85%. Normal arterial range: 95-100%. Pressure measurements obtained. ABG drawn and sent with respiratory therapy. Linden-Annamaria out. Lidocaine 1% infiltrated to the right radial. Arterial access obtained. A 5 italian TIG catheter in over the exchange J wire. Multiple views taken of left coronary artery. Catheter redirected to the RCA. Multiple views taken of right coronary artery. Catheter removed over the exchange J wire. Dr. Jean scrubbed out. A Manual Compression was successful obtaining hemostatsis at the Right Brachial Vein insertion site. A TR Band was successful obtaining hemostatsis at the Right Radial artery insertion site. Post Procedure: Pulses reassessed and unchanged. PERRLA. 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 No VTE prophylaxis required. Medication's Wasted: Lidocaine 1% = 18 mL. Medication's Wasted: Nitro = 49.8 mg. Medication's Wasted: Heparin = 3000 units. Medication's Wasted: Other = Fentanyl 100 mcg. Total IV fluids: 50 mL. Post-op diagnosis: Severe mid LAD and PDA stenosis; severe aortic stenosis. Complications: none. Estimated blood loss: 5mL-10mL. Responsiveness - Normal response to verbal stimuli; alert and oriented, PERRLA. Airway - Unaffected, no intervention required; spontaneous ventilation. Circulation: W/N/L, pulses unchanged. Nausea/Vomiting: No. Procedure completed. Patient transferred by wheelchair to CPRU. Vital chart was stopped. Access Site Site: Right Brachial Vein Sheath Size: 6 Fr Hemostasis Method: Manual Compression Hemostasis Success: Successful Site: Right Radial artery Sheath Size: 6 Fr Hemostasis Method: TR Band Hemostasis Success: Successful Procedure Medications Start: 10:08 AM Stop: 10:08 AM Medication: Versed Amount: 1 mg Route: I.V. Start: 10:17 AM Stop: 10:17 AM Medication: Versed Amount: 1 mg Route: I.V. Start: 10:25 AM Stop: 10:25 AM Medication: Nitrogylcerin Amount: 200 mcg Route: I.A. Start: 10:28 AM Stop: 10:28 AM Medication: Heparin Amount: 2000 units Route: I.V. Start: 10:34 AM Stop: 10:34 AM Medication: Heparin Amount: 1000 units Route: I.V. I, the attending physician, have reviewed and verified all procedure medications. Yes, all medications given per verbal order History/Risk Factors Hypertension: No Dyslipidemia: No Peripheral Arterial Disease (PAD): No Myocardial Infarction (CO): No Obesity: Yes Renal Disease: No Tobacco Use: Former Prior Interventions PCI: No CABG: No Valve Surgery: No Report Signatures Finalized by Ed Jean MD on 07/24/2024 08:42 AM
--- NOTE | 2024-07-22 10:00 | W.PM.OPSUD ---
Surgery/Procedure H&P Update DATE OF PROCEDURE: July 22, 2024 DATE H&P PERFORMED: 06/29/24 H&P UPDATE INFORMATION: I have reviewed H&P completed within last 30 days, I have examined patient prior to procedure and No changes to prior documentation PREOP DIAGNOSIS: Severe aortic stenosis PRIMARY INDICATION FOR PROCEDURE: Severe aortic stenosis PLANNED PROCEDURE: Operation Date: 07/22/24 10:00 Proposed Procedures p Cardiac Catheterization - RLHC w/wo LV & Coros(Bilateral) - Ed Jean M.D Possible percutaneous coronary intervention PATIENT REASSESSED PRIOR TO SEDATION, WITH NO CHANGE NOTED: Yes PHYSICAL EXAM: alert, oriented x 3, clear to auscultation bilaterally and regular rate & rhythm AIRWAY EVAL/ANESTHESIA PLAN: normal airway, ASA III, Local Anesthesia, Risks, benefits & alternatives of sedation and/or procedure discussed and Patient agrees to continue as planned ADDITIONAL INFORMATION: Moderate sedation
[2024-07-22 10:32] LABS: Alveolar-Arterial Oxygen Gradi 3.8 mmHg (5-10); Arterial Blood Gas Hematocrit 33.7 % (42-52); Blood Gas Operator Identificat MONRO; Blood Gas Sample Site AO; Blood Gas Sample Type Not specified; Carboxyhemoglobin 1.5 %THgb (0.4-20.1); Methemoglobin 0.2 % (0.4-1.5); Oxygen Device ROOM AIR
[2024-07-22 10:32] LABS: Alveolar-Arterial Oxygen Gradi 8.3 mmHg (5-10); Arterial Blood Gas Hematocrit 24.2 % (42-52); Blood Gas Sample Type Arterial; Carboxyhemoglobin 1.7 %THgb (0.4-20.1); HGB O2 Sat 75.9 % (95-100); Methemoglobin 1.1 % (0.4-1.5); Total Hemoglobin 7.9 g/dL (14-18)
[2024-07-22 10:33] LABS: Blood Gas Operator Identificat MONRO; Blood Gas Sample Site PA; Oxygen Device ROOM AIR
--- NOTE | 2024-07-22 10:48 | PM.PROC ---
Procedure Note: Date of procedure: 07/22/24 Pre-procedure diagnosis: Severe aortic stenosis Post-procedure diagnosis: other (Severe aortic stenosis/ Severe coronary artery disease) Procedure: Left heart cath: Severe mid LAD stenosis. Severe PDA stenosis. Mild to moderate left main artery stenosis. Right heart cath showing elevated left sided cardiac pressures Op report anesthesia: Local (Moderate sedation) Performing Provider: Ed Jean Estimated blood loss (mL): 10 Complications: None Condition: stable Disposition: same day (Same day discharge) Coding Level of Care Code Acute Code for Poli Valadez
--- NOTE | 2024-07-22 13:59 | PC.NURSE ---
TR band off @ 1355, no bleeding or hematoma noted at this time.
== END 2024-07-22 15:02 | disposition home or self-care (01) ==
PROVIDERS: PCP Family Medicine; Visit Provider Internal Medicine
DX: I35.0 Nonrheumatic aortic (valve) stenosis (principal); E66.9 Obesity, unspecified; Z68.34 Body mass index [BMI] 34.0-34.9, adult; Z87.891 Personal history of nicotine dependence
CPT/HCPCS: 82810; J1644; J2250; J3010; J3490; J7030; Q0163

== ENCOUNTER → 2024-07-31 11:19 | Outpatient (BNVA) | payer MEDICARE, SELFPAY | PROVIDERS: PCP Family Medicine; Visit Provider Internal Medicine | DX: I35.0 Nonrheumatic aortic (valve) stenosis (principal); K74.60 Unspecified cirrhosis of liver | CPT/HCPCS: 99214 ==

== ENCOUNTER → 2024-10-29 10:28 | Outpatient (BNVA) | payer MEDICARE, SELFPAY | PROVIDERS: PCP Family Medicine; Visit Provider Nurse Practitioner Family | DX: I25.10 Atherosclerotic heart disease of native coronary artery without angina pectoris (principal); Z95.2 Presence of prosthetic heart valve; F32.A Depression, unspecified; K74.60 Unspecified cirrhosis of liver | CPT/HCPCS: 99214 ==

== ENCOUNTER 2024-11-10 14:42 | Outpatient (RCR) | payer MEDICARE, SELFPAY | END 2024-12-02 23:59 | disposition home or self-care (01) | LOC: CR 14:42 | PROVIDERS: Absent Provider Student in an Organized Health Care Education/Training Program; PCP Family Medicine; Visit Provider Family Medicine | DX: Z95.2 Presence of prosthetic heart valve (principal) | CPT/HCPCS: 93798 ==

== ENCOUNTER 2024-11-18 14:17 | Outpatient (CLI) | payer MEDICARE, SELFPAY ==
--- NOTE | 2024-11-18 14:24 | XR_ITS ---
WS: [id number] Chest 2 views, 11/18/2024 Clinical Data: sob Comparison: Portable chest, 07/17/2023 Findings: There is patchy opacity in the right lower lobe which may represent atelectasis, pneumonia and/or effusion. No nodules or masses are seen. The heart is normal. There is an artificial valve in the heart. The aortic arch and descending thoracic aorta show mild tortuosity. The pulmonary vascularity is not increased. No pneumonia or pneumothorax is seen. XR/XR chest 2V* [id number] Impression: 1. Patchy opacity in right lower lobe which may represent atelectasis effusion and/or pneumonia. 2. Atherosclerosis and artificial heart valve.
== END 2024-11-18 14:18 | disposition home or self-care (01) ==
PROVIDERS: PCP Family Medicine; Visit Provider Family Medicine
DX: R06.00 Dyspnea, unspecified (principal); R91.8 Other nonspecific abnormal finding of lung field; Z96.89 Presence of other specified functional implants; R93.89 Abnormal findings on diagnostic imaging of other specified body structures; I70.90 Unspecified atherosclerosis
CPT/HCPCS: 71046

== ENCOUNTER → 2024-11-26 09:33 | Outpatient (BNVA) | payer MEDICARE, SELFPAY | PROVIDERS: PCP Family Medicine; Visit Provider Nurse Practitioner Family | DX: R06.02 Shortness of breath (principal); I25.10 Atherosclerotic heart disease of native coronary artery without angina pectoris; Z79.82 Long term (current) use of aspirin; Z95.2 Presence of prosthetic heart valve; Z87.891 Personal history of nicotine dependence | CPT/HCPCS: 80053; 83690; 85025; 99214 ==

== ENCOUNTER 2024-12-03 08:58 | Outpatient (RCR) | payer MEDICARE, SELFPAY | END 2025-01-02 23:59 | disposition home or self-care (01) | LOC: CR 08:58 | PROVIDERS: Absent Provider Student in an Organized Health Care Education/Training Program; PCP Family Medicine; Visit Provider Family Medicine | DX: Z95.2 Presence of prosthetic heart valve (principal) | CPT/HCPCS: 93798 ==

== ENCOUNTER 2024-12-08 20:33 | Observation (INO) | payer MEDICARE, SELFPAY ==
--- NOTE | 2024-12-08 20:37 | ECG_ITS ---
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 Measurements Intervals [place] Rate: 52 P: 28 WA: 193 QRS: 34 QRSD: 95 T: 39 QT: 405 QTc: 380 Interpretive Statements SINUS BRADYCARDIA MODERATE ST DEPRESSION [0.05+ mV ST DEPRESSION] Compared to ECG 09/05/2023 12:32:51 Left ventricular hypertrophy no longer present ST (T wave) deviation still present Electronically Signed On 12-09-2024 17:43:33 CDT by Jose De Jesus Mckeon M.D. [email or web address]
--- NOTE | 2024-12-08 20:37 | XRR_ITS ---
PROCEDURE INFORMATION: Exam: XR Chest Exam date and time: 12/08/2024 9:06 PM Age: 69 years old Clinical indication: Cough and dyspnea; Additional info: Dyspnea/cough TECHNIQUE: Imaging protocol: Radiologic exam of the chest. Views: 1 view. COMPARISON: CR XR chest 2V* [id number] 11/18/2024 2:37 PM FINDINGS: Lungs: Chronic pleural thickening involves the right base. No pleural effusion or pneumothorax. Pleural spaces: See Lungs finding. Heart/Mediastinum: There is evidence of a prosthetic heart valve. Bones/joints: Unremarkable. XR/XR chest 1V portable [id number] IMPRESSION: 1. No acute findings. 2. Chronic right basilar pleural disease
[2024-12-08 20:56] VITALS: BP 162/88; PULSE 54; RESP 18; TEMP 36.8; O2SAT 99
[2024-12-08 21:18] LABS: Basophils # 0.1 10^3/uL (0.0-0.1); Eosinophils # 0.7 10^3/uL (0.0-0.8); Eosinophils % 9.4 %; Hematocrit 35.8 % (37-53); Lymphocytes # 1.7 10^3/uL (0.8-4.8); Lymphocytes % 23.2 %; Mean Corpuscular HGB Conc 31.6 g/dL (30-55); Mean Corpuscular Volume 107.8 fl (82-101); Monocytes # 0.7 10^3/uL (0.2-0.9); Monocytes % 9.7 %; Neutrophils # 4.15 10^3/uL (1.8-7.7); Neutrophils % 56.4 %; Nucleated Red Blood Cells % 0 %; Platelet Count 72 10^3/cmm (157-399); Red Blood Count 3.32 10^6/uL (3.85-5.65); Red Cell Distribution Width 14.3 % (12.1-15.1); White Blood Count 7.34 10^3/uL (3.29-11.43)
--- NOTE | 2024-12-08 21:24 | W.ED.RECABL ---
HPI - Recheck/Abnormal Lab/Rx General: Chief Complaint: Recheck/Abnormal Lab/Rx Stated Complaint: dr Sent Because of Labs Time Seen by Provider: 12/08/24 21:20 History of Present Illness: Patient presents emergency department with complaint of hyperkalemia. He states that he had routine outpatient labs drawn this morning because he has been on spironolactone for a month now. He was told that he has a significantly elevated potassium and to come to the emergency department. Patient is otherwise asymptomatic. He does not have any chest pain or palpitations shortness of breath or abdominal pain or nausea vomiting or diarrhea. He states he feels normal. Related Data Home Medications ?Medication ?Instructions ?Recorded ?Confirmed [id number] 1 tab PO QAM 11/20/21 12/08/24 tablet (Multivitamin 50 Plus tablet) Calcium With Vit D Gummies 2 tab PO DAILY 07/17/23 12/08/24 Vitamin B 12 Gummies 2 tab PO DAILY 07/17/23 12/08/24 Vitamin C Gummies 2 tab PO DAILY 07/17/23 12/08/24 inulin 2 gram chewable tablet 6 g PO DAILY 07/17/23 12/08/24 (Fiber Gummies) rifaximin 550 mg tablet (Xifaxan) 550 mg PO BID PRN doesnt take 07/17/23 12/08/24 consistently vitamin B complex 1 tab PO QAM 07/17/23 12/08/24 lactulose 10 gram/15 mL oral PO 10/29/24 12/08/24 solution (Constulose) Previous Rx's ?Medication ?Instructions ?Recorded Life Scan OneTouch glucometer and #100 ea 01/27/24 test strips Lifescan one touch Lancets #100 ea 01/27/24 glimepiride 2 mg tablet 2 mg PO QAM #90 tabs 04/29/24 propranolol 10 mg tablet See Rx Instructions .Route 06/15/24 .COMPLEX #180 tabs aspirin 81 mg tablet,delayed 81 mg PO DAILY #30 tabs 08/25/24 release (Adult Aspirin Regimen) ondansetron 4 mg disintegrating 4 mg PO Q6H PRN nausea and 10/28/24 tablet vomiting #30 tabs spironolactone 25 mg tablet 25 mg PO DAILY #30 tabs 10/28/24 Held on 12/08/24. Instructions: high potassium trazodone 100 mg tablet 100 mg PO DAILY #30 tabs 12/08/24 Allergies Allergy/AdvReac Type Severity Reaction Status Date / Time No Known Allergies Allergy Verified 12/08/24 20:59 PFSH ED PFSH: Medical History Coronary artery disease 07/22/24 angiogram - PDA 80% stenosis; Distal RCA moderate stenosis; LAD mid 80% stenosis - no stents, just monitoring. History of transcatheter aortic valve replacement (TAVR) 08/2024 Aortic stenosis TAVR done 08/2024. Heart murmur Diabetes mellitus Cirrhosis of liver Depression Colon polyps Esophageal varices Macronodular cirrhosis H/O renal calculi Diabetes mellitus Surgical History Status post colonoscopy with polypectomy (08/16/21) Status post colonoscopy with polypectomy (06/07/20) H/O esophagogastroduodenoscopy (06/07/20) Status post laparoscopic cholecystectomy (04/20/20) with liver biopsy H/O circumcision H/O vasectomy H/O umbilical hernia repair H/O skin graft left foot Family History Other CAD (coronary artery disease) Cancer Diabetes Hypertension Denies family history of Anesthesia complication Bleeding disorder Social History Smoking and tobacco/nicotine status: never used tobacco/nicotine Alcohol intake: never Substance/Drug Use: never Household members: spouse Marital status: Current occupational status: retired Physical Exam Const: COMMON NORMALS: no acute distress, average body habitus, patient oriented x3, no limitations, healthy appearing, alert and well nourished Neck/C-Spine: COMMON NORMALS: no JVD Resp: COMMON NORMALS: normal respiratory effort, No retractions, No use of accessory muscles, clear to auscultation bilaterally and percussion normal AUSCULTATION: clear to auscultation bilaterally PERCUSSION: percussion normal Cardio: COMMON NORMALS: no JVD, regular rate, regular rhythm, S1 normal heart sound present, S2 normal heart sound present, No gallops present (Cardio), No clicks present (Cardio), No murmurs present (Cardio), No rub (Cardio) and Peripheral pulses 2+ throughout RATE: regular rate RHYTHM: regular rhythm HEART SOUNDS: S1 normal heart sound present and S2 normal heart sound present PERIPHERAL PULSES: Peripheral pulses 2+ throughout GI: COMMON NORMALS: Normal to inspection, nondistended, normoactive bowel sounds present, Soft to palpation, non-tender, No hepatosplenomegaly present, no masses and no bruits PALPATION: Yes Soft to palpation and Yes No hepatosplenomegaly present Neuro: COMMON NORMALS: patient oriented x3, CN's II-XII intact bilaterally, moves all extremities, no focal motor deficits and no sensory deficits noted SENSORIUM/ORIENTATION: Yes alert Course Vital Signs: Vital signs: Vital Signs Temperature 98.3 F 12/08/24 20:56 Pulse Rate 54 L 12/08/24 20:56 Respiratory Rate 18 12/08/24 20:56 Blood Pressure 162/88 12/08/24 20:56 Pulse Oximetry 99 12/08/24 20:56 Oxygen Delivery Me thod Room Air 12/08/24 20:56 MDM - Recheck/Abnormal Lab/Rx Medical Decision Making Patient presents emerged part with complaint of abnormal labs. He was noted to have a potassium of 6.9. He was treated with calcium and bicarb and insulin and glucose and Kayexalate here in the emergency department. His potassium has come down to 5.7. He does have EKG findings consistent with hyperkalemia with peaked T waves. No chest pain or shortness of breath. Patient is otherwise asymptomatic other than being mildly nauseous. Will admit patient to the hospitalist, Dr. Lees, for further treatment of hyperkalemia and AYDEN. Lab Data 12/08/24 21:14 12/08/24 21:14 Radiology Impressions Chest X-Ray 12/08/24 20:37 IMPRESSION: 1. No acute findings. 2. Chronic right basilar pleural disease Laboratory Results WBC 7.34 10^3/uL (3.29-11.43) 12/08/24 21:14 RBC 3.32 10^6/uL (3.85-5.65) L 12/08/24 21:14 Hgb 11.30 g/dL (11.27-16.99) 12/08/24 21:14 Hct 35.8 % (37-53) L 12/08/24 21:14 MCV 107.8 fl (82-101) H 12/08/24 21:14 MCH 34.0 pg (27-33) H 12/08/24 21:14 MCHC 31.6 g/dL (30-55) 12/08/24 21:14 RDW 14.3 % (12.1-15.1) 12/08/24 21:14 Plt Count 72 10^3/cmm (157-399) L 12/08/24 21:14 MPV 12.0 fL (7.4-10.4) H 12/08/24 21:14 Neut % (Auto) 56.4 % 12/08/24 21:14 Lymph % (Auto) 23.2 % 12/08/24 21:14 Barber % (Auto) 9.7 % 12/08/24 21:14 Eos % (Auto) 9.4 % 12/08/24 21:14 Baso % (Auto) 1.0 % 12/08/24 21:14 Neut # (Auto) 4.15 10^3/uL (1.8-7.7) 12/08/24 21:14 Lymph # (Auto) 1.7 10^3/uL (0.8-4.8) 12/08/24 21:14 Barber # (Auto) 0.7 10^3/uL (0.2-0.9) 12/08/24 21:14 Eos # (Auto) 0.7 10^3/uL (0.0-0.8) 12/08/24 21:14 Baso # (Auto) 0.1 10^3/uL (0.0-0.1) 12/08/24 21:14 Nucleated RBC % (auto) 0 % 12/08/24 21:14 Nucleated RBCs # 0.0 /100WBC 12/08/24 21:14 Sodium 139 mmol/L (136-145) 12/08/24 21:14 Potassium 5.7 mmol/L (3.5-5.1) H 12/08/24 21:14 Chloride 112 mmol/L (98-107) H 12/08/24 21:14 Carbon Dioxide 21 mmol/L (22-29) L 12/08/24 21:14 Anion Gap 11.7 (5-19) 12/08/24 21:14 BUN 39 mg/dL (8-23) H 12/08/24 21:14 Creatinine 2.2 mg/dL (0.7-1.2) H 12/08/24 21:14 GFR Calculation 29.9 mL/min (90-130) L 12/08/24 21:14 Glucose 60 mg/dL (65-115) L 12/08/24 21:14 Calculated Osmolality 295 mOsm/kg (285-295) 12/08/24 21:14 Calcium 8.7 mg/dL (8.5-10.5) 12/08/24 21:14 Magnesium 1.9 mg/dL (1.7-2.3) 12/08/24 21:14 Total Bilirubin 1.1 mg/dL (0.15-1.2) 12/08/24 21:14 AST 56 U/L (0-40) H 12/08/24 21:14 ALT 28 U/L (0-41) 12/08/24 21:14 Alkaline Phosphatase 77 U/L (40-130) 12/08/24 21:14 Total Protein 5.7 g/dL (6.6-8.7) L 12/08/24 21:14 Albumin 2.2 g/dL (3.5-5.2) L 12/08/24 21:14 Globulin 3.5 g/dL (1.3-4.6) 12/08/24 21:14 No radiology studies performed this visit Discharge Plan Discharge Patient Disposition: Placed in Observation Clinical Impression: Acute hyperkalemia, AYDEN (acute kidney injury) Coding Level of Care Code ED Boiler/Chiller Technician for Poli Valadez
[2024-12-08 21:35] LABS: Alanine Aminotransferase 28 U/L (0-41); Albumin Level 2.2 g/dL (3.5-5.2); Alkaline Phosphatase 77 U/L (40-130); Anion Gap 11.7 (5-19); Aspartate Amino Transferase 56 U/L (0-40); Blood Urea Nitrogen 39 mg/dL (8-23); Calcium 8.7 mg/dL (8.5-10.5); Carbon Dioxide 21 mmol/L (22-29); Chloride 112 mmol/L (98-107); Creatinine Clr Calc Pharmacy 37.1282; Globulin 3.5 g/dL (1.3-4.6); Glomerular Filtration Rate 29.9 mL/min (90-130); Glucose 60 mg/dL (65-115); Magnesium 1.9 mg/dL (1.7-2.3); Osmolality Calculated 295 mOsm/kg (285-295); Potassium 5.7 mmol/L (3.5-5.1); Sodium 139 mmol/L (136-145); Total Bilirubin 1.1 mg/dL (0.15-1.2); Total Protein 5.7 g/dL (6.6-8.7)
--- NOTE | 2024-12-08 22:18 | PM.HP ---
Providers/Chief Complaint Primary Care Provider: Bridger Alfred MD Chief Complaint: dr Sent Because of Labs History of Present Illness Saúl Farias is a 69 year old male with a past medical history significant for liver cirrhosis, coronary artery disease, diabetes mellitus, depression, and multiple other comorbidities who presents emergency department with abnormal labs consisting of hyperkalemia. Patient had routine labs done today revealing hyperkalemia to 6.8. Patient had recently and started on spironolactone 25 mg in the setting of liver cirrhosis. This was approximately 1 month ago. He is also been using compression stockings for volume control. Reportedly lost over 20 pounds in the past 30 days and fluid weight. Denies any acute symptoms of the hyperkalemia. Denies palpitations or muscle cramps. In the emergency department, repeat labs showed potassium of 5.7. There were EKG changes with peaking of T waves. He was treated pharmacologically and with IV fluids. Review of Systems Narrative: A complete review of systems was obtained and is negative except as stated in HPI. Medications/Allergies Home Medications ?Medication ?Instructions ?Recorded ?Confirmed ?Last Taken ?Type feykkykicrcg-slmpxozr-skeztg 1 tab PO QAM 11/20/21 12/08/24 07/21/24 08:00 History tablet (Multivitamin 50 Plus tablet) Calcium With Vit D Gummies 2 tab PO DAILY 07/17/23 12/08/24 07/21/24 08:00 History Vitamin B 12 Gummies 2 tab PO DAILY 07/17/23 12/08/24 07/21/24 08:00 History Vitamin C Gummies 2 tab PO DAILY 07/17/23 12/08/24 07/21/24 08:00 History inulin 2 gram chewable tablet 6 g PO DAILY 07/17/23 12/08/24 07/21/24 08:00 History (Fiber Gummies) rifaximin 550 mg tablet (Xifaxan) 550 mg PO BID PRN doesnt take 07/17/23 12/08/24 07/21/24 19:00 History consistently vitamin B complex 1 tab PO QAM 07/17/23 12/08/24 07/21/24 08:00 History Life Scan OneTouch glucometer and #100 ea 01/27/24 12/08/24 Unknown Rx test strips Lifescan one touch Lancets #100 ea 01/27/24 12/08/24 Unknown Rx glimepiride 2 mg tablet 2 mg PO QAM #90 tabs 04/29/24 12/08/24 07/21/24 08:00 Rx propranolol 10 mg tablet See Rx Instructions .Route 06/15/24 12/08/24 07/22/24 05:00 Rx .COMPLEX #180 tabs aspirin 81 mg tablet,delayed 81 mg PO DAILY #30 tabs 08/25/24 12/08/24 Unknown Rx release (Adult Aspirin Regimen) ondansetron 4 mg disintegrating 4 mg PO Q6H PRN nausea and 10/28/24 12/08/24 Unknown Rx tablet vomiting #30 tabs spironolactone 25 mg tablet 25 mg PO DAILY #30 tabs 10/28/24 12/08/24 Unknown Rx Held on 12/08/24. Instructions: high potassium lactulose 10 gram/15 mL oral PO 10/29/24 12/08/24 Unknown History solution (Constulose) trazodone 100 mg tablet 100 mg PO DAILY #30 tabs 12/08/24 12/08/24 Unknown Rx Allergies Allergy/AdvReac Type Severity Reaction Status Date / Time No Known Allergies Allergy Verified 12/08/24 20:59 PFSH Acute PFSH: Medical History Coronary artery disease 07/22/24 angiogram - PDA 80% stenosis; Distal RCA moderate stenosis; LAD mid 80% stenosis - no stents, just monitoring. History of transcatheter aortic valve replacement (TAVR) 08/2024 Aortic stenosis TAVR done 08/2024. Heart murmur Diabetes mellitus Cirrhosis of liver Depression Colon polyps Esophageal varices Macronodular cirrhosis H/O renal calculi Diabetes mellitus Surgical History Status post colonoscopy with polypectomy (08/16/21) Status post colonoscopy with polypectomy (06/07/20) H/O esophagogastroduodenoscopy (06/07/20) Status post laparoscopic cholecystectomy (04/20/20) with liver biopsy H/O circumcision H/O vasectomy H/O umbilical hernia repair H/O skin graft left foot Family History Other CAD (coronary artery disease) Cancer Diabetes Hypertension Denies family history of Anesthesia complication Bleeding disorder Social History Smoking and tobacco/nicotine status: never used tobacco/nicotine Alcohol intake: never Substance/Drug Use: never Household members: spouse Marital status: Current occupational status: retired Vitals/I&O/Wt Last Vital Signs Temp 98.3 F 12/08/24 20:56 Pulse 54 L 12/08/24 20:56 Resp 18 12/08/24 20:56 BP 162/88 12/08/24 20:56 Pulse Ox 99 12/08/24 20:56 O2 Del Method Room Air 12/08/24 20:56 Weight last 48 hrs Weight 101.605 kg Physical Exam Narrative: General: Patient is awake. Appears fatigued. Head: Normocephalic. Neck: No JVD. Cardiovascular: RRR. No gallops. No murmurs. 2+ pitting edema bilateral lower extremities. Compression stockings are present. Lungs: Clear to auscultation, no use of accessory muscles, no crackles or wheezes. Skin: No jaundice. No rashes. Abdomen: Normal bowel sounds, abdomen soft and nontender. Extremities: No cyanosis or clubbing. Musculoskeletal: No erythematous joints. Neurological: Moves all 4 extremities. No myoclonus. Data 12/08/24 21:14 12/08/24 21:14 A&P Assessment and plan (1) Diabetes mellitus: (2) Cirrhosis of liver: (3) Hepatic encephalopathy: (4) Acute hyperkalemia: (5) Edema: (6) CKD (chronic kidney disease): Plan Acute hyperkalemia with EKG changes - Status post IV fluids, calcium gluconate, insulin/dextrose in ED - Kayexalate ordered - Telemetry monitoring - Serial labs - Hold spironolactone, would DC at discharge History of liver cirrhosis History of esophageal varices History of hepatic cephalopathy - Check ammonia level -Continue home medications other than Aldactone Type 2 diabetes mellitus - Hold sulfonylurea - Sliding scale correction Chronic kidney disease - Renal function slightly worse than baseline - Received fluids in ED - Spironolactone is being held - Repeat labs in a.m. History of coronary artery disease - Continue aspirin DVT prophylaxis: SCD PDMP PDMP Reviewed: Not Reviewed Attestations Medical Necessity Statement*: Patient presents with hyperkalemia with EKG changes with expected hospitalization not to cross 2 midnights for treatment of hyperkalemia. Coding Level of Care Code Acute Code for Chg Fwd Diagnoses Diabetes mellitus E11.9 Cirrhosis of liver K74.60 Hepatic encephalopathy K76.82 Acute hyperkalemia E87.5 Edema R60.9 CKD (chronic kidney disease) N18.9
[2024-12-08] MEDS: sodium chloride 0.9% 1,000 ML 999 ML IV (22:37)
[2024-12-08] MEDS: ondansetron 2 mg/ML SDV 2 mL 4 MG IVP (22:37)
[2024-12-08 22:42] VITALS: BP 142/83; PULSE 62; RESP 12; O2SAT 97
[2024-12-08 22:49] LABS: Glucose Point of Care 59 mg/dL (70-110)
--- NOTE | 2024-12-08 22:50 | PC.NURSE ---
CONSULTED DR ROBLERO FOR PTS BG LEVEL OF 59. DR ROBLERO GAVE VERBAL ORDER FOR NURSE TO GIVE ALL OTHER MEDS AND ADDITIONAL D10 AT 100/ HR FOR 5 HOURS. ALSO VERBALIZED NURSE TO GIVE ALL OTHER ORDERED MEDICATIONS. [id number]
[2024-12-08 23:01] LABS: Ammonia 95 umol/L (16-60)
[2024-12-08] MEDS: sodium polystyrene sulfonate 15 gm/60 mL Btl PO (23:04)
[2024-12-08] MEDS: sodium bicarbonate 8.4% syr 150 MEQ in dextrose 5% 200 ML 700 MEQ IV (23:14)
[2024-12-08] MEDS: calcium chloride 10% Syr 10 mL 1 GM IVP (23:15)
[2024-12-08 23:20] VITALS: BP 154/64; PULSE 63; RESP 19; O2SAT 99
[2024-12-08] MEDS: dextrose 10% 1,000 ML 100 ML IV (23:35)
[2024-12-09] VITALS (12 sets, daily range): BP systolic 136–182; BP diastolic 64–82; PULSE 57–71; RESP 13–23; TEMP 36.4–37.1; O2SAT 96–100; BMI 34.5
--- NOTE | 2024-12-09 00:34 | PC.NURSE ---
PTS BG 139 AT 0034
[2024-12-09 00:38] LABS: Glucose Point of Care 139 mg/dL (70-110)
--- NOTE | 2024-12-09 00:53 | PC.NURSE ---
PT WANTS TO KEEP HIS CLOTHES ON, REFUSED GOWN.
[2024-12-09] MEDS: insulin regular-human 100 units/1 mL 6 UNIT IVP (01:01)
[2024-12-09 01:59] LABS: Glucose Point of Care 197 mg/dL (70-110)
[2024-12-09 03:10] LABS: Basophils # 0.1 10^3/uL (0.0-0.1); Basophils % 0.8 %; Eosinophils # 0.4 10^3/uL (0.0-0.8); Eosinophils % 6.9 %; Hematocrit 32.7 % (37-53); Lymphocytes # 1.4 10^3/uL (0.8-4.8); Lymphocytes % 23.1 %; Mean Corpuscular Hemoglobin 33.9 pg (27-33); Mean Corpuscular Volume 102.5 fl (82-101); Mean Platelet Volume 11.6 fL (7.4-10.4); Monocytes # 0.6 10^3/uL (0.2-0.9); Monocytes % 9.6 %; Neutrophils # 3.71 10^3/uL (1.8-7.7); Neutrophils % 59.4 %; Nucleated Red Blood Cells % 0 %; Platelet Count 54 10^3/cmm (157-399); Red Blood Count 3.19 10^6/uL (3.85-5.65); Red Cell Distribution Width 14.1 % (12.1-15.1); White Blood Count 6.24 10^3/uL (3.29-11.43)
[2024-12-09 03:11] LABS: Glucose Point of Care 163 mg/dL (70-110)
[2024-12-09 03:30] LABS: Alanine Aminotransferase 25 U/L (0-41); Alkaline Phosphatase 66 U/L (40-130); Anion Gap 11.6 (5-19); Aspartate Amino Transferase 50 U/L (0-40); Blood Urea Nitrogen 37 mg/dL (8-23); Calcium 8.3 mg/dL (8.5-10.5); Carbon Dioxide 21 mmol/L (22-29); Chloride 112 mmol/L (98-107); Creatinine Clr Calc Pharmacy 38.8962; Globulin 3.2 g/dL (1.3-4.6); Glomerular Filtration Rate 31.6 mL/min (90-130); Glucose 165 mg/dL (65-115); Osmolality Calculated 300 mOsm/kg (285-295); Potassium 5.6 mmol/L (3.5-5.1); Sodium 139 mmol/L (136-145); Total Bilirubin 1.2 mg/dL (0.15-1.2); Total Protein 5.2 g/dL (6.6-8.7)
[2024-12-09 03:32] LABS: Anion Gap 11.7 (5-19); Blood Urea Nitrogen 37 mg/dL (8-23); Calcium 8.5 mg/dL (8.5-10.5); Carbon Dioxide 21 mmol/L (22-29); Chloride 112 mmol/L (98-107); Creatinine Clr Calc Pharmacy 38.8962; Glomerular Filtration Rate 31.6 mL/min (90-130); Glucose 167 mg/dL (65-115); Magnesium 1.8 mg/dL (1.7-2.3); Phosphorus 4.1 mg/dL (2.5-4.5); Potassium 5.7 mmol/L (3.5-5.1); Sodium 139 mmol/L (136-145)
[2024-12-09] MEDS: sodium polystyrene sulfonate 15 gm/60 mL Btl PO (05:30)
[2024-12-09] MEDS: calcium gluconate 0.9% NaCL 1 GM/50 ML PREMIX IV (05:30)
[2024-12-09 06:27] LABS: Glucose Point of Care 118 mg/dL (70-110)
[2024-12-09] MEDS: lactulose oral liq 20 gm/30 mL UDC PO (09:45)
[2024-12-09] MEDS: lactated ringers 1,000 ML 100 ML IV (09:46)
[2024-12-09 11:43] LABS: Glucose Point of Care 191 mg/dL (70-110)
[2024-12-09] MEDS: insulin lispro 100 unit/1 mL SUBCUT ×3 (12:32→21:42)
--- NOTE | 2024-12-09 12:41 | P.PN_ITS ---
Subjective 2 Subjective: Patient admitted for abnormal labs at bedside. He wants to go home. Denies chest pain dizziness or muscle cramps Vitals/I&O/Wt Last Vital Signs Temp 98.0 F 12/09/24 07:24 Pulse 60 12/09/24 07:24 Resp 15 12/09/24 07:24 BP 146/75 12/09/24 07:24 Pulse Ox 100 12/09/24 07:24 O2 Del Method Room Air 12/09/24 07:24 12/08/24 12/09/24 12/09/24 22:59 06:59 14:59 Intake Total 1675 / 1675 240 / 240 Balance 1675 / 1675 240 / 240 Weight last 48 hrs Weight 227 lb 8 oz Weight 227 lb 8 oz Weight 224 lb 6 oz Weight 224 lb Physical Exam 2 Narrative: General: Patient is awake. Head: Normocephalic. Neck: No JVD. Cardiovascular: RRR. No gallops. No murmurs. Lungs: Clear to auscultation, no use of accessory muscles, no crackles or wheezes. Skin: No jaundice. No rashes. Abdomen: Normal bowel sounds, abdomen soft and nontender. Extremities: No cyanosis or clubbing. Musculoskeletal: No erythematous joints. Neurological: Moves all 4 extremities. No myoclonus. Data 12/09/24 03:06 12/09/24 03:06 A&P Assessment and plan (1) Acute hyperkalemia: (2) CKD (chronic kidney disease): (3) Cirrhosis of liver: (4) History of transcatheter aortic valve replacement (TAVR): Plan Acute hyperkalemia with EKG changes - Status post IV fluids, calcium gluconate, insulin/dextrose in ED - Kayexalate ordered - Telemetry monitoring - Serial labs - Hold spironolactone, would DC at discharge History of liver cirrhosis History of esophageal varices History of hepatic cephalopathy - Check ammonia level--> elevated -Continue home medications other than Aldactone Type 2 diabetes mellitus - Hold sulfonylurea - Sliding scale correction Chronic kidney disease - Renal function slightly worse than baseline - Received fluids in ED - Spironolactone is being held - Repeat labs in a.m. History of coronary artery disease - Continue aspirin Dispo: DC soon, once K better DVT prophylaxis: SCD PDMP PDMP Reviewed: Not Reviewed Attestations 2 Medical Necessity Statement*: treat hyperkalemia, acute on CKD Coding Level of Care Code 87570 Diagnoses Acute hyperkalemia E87.5 CKD (chronic kidney disease) N18.9 Cirrhosis of liver K74.60 History of transcatheter aortic valve replacement (TAVR) Z95.2
[2024-12-09 13:15] LABS: Anion Gap 11.6 (5-19); Blood Urea Nitrogen 36 mg/dL (8-23); Calcium 8.3 mg/dL (8.5-10.5); Carbon Dioxide 21 mmol/L (22-29); Chloride 110 mmol/L (98-107); Creatinine Clr Calc Pharmacy 41.1584; Glomerular Filtration Rate 33.4 mL/min (90-130); Glucose 225 mg/dL (65-115); Osmolality Calculated 301 mOsm/kg (285-295); Potassium 4.6 mmol/L (3.5-5.1); Sodium 138 mmol/L (136-145)
[2024-12-09] MEDS: lactulose oral liq 20 gm/30 mL UDC 30 GM PO ×2 (15:10→21:42)
[2024-12-09 17:01] LABS: Glucose Point of Care 141 mg/dL (70-110)
[2024-12-09] MEDS: propranolol 20 mg Tablet 10 MG PO (17:14)
[2024-12-09 20:25] LABS: Glucose Point of Care 193 mg/dL (70-110)
[2024-12-09] MEDS: lactated ringers 1,000 ML 75 ML IV (21:43)
[2024-12-09] MEDS: ondansetron 2 mg/ML SDV 2 mL 4 MG IVP (21:47)
[2024-12-10] VITALS: BP 150/69; PULSE 74; RESP 19; TEMP 36.8; O2SAT 99
[2024-12-10 04:00] VITALS: BP 145/64; PULSE 72; RESP 16; TEMP 36.8; O2SAT 96
[2024-12-10 06:00] VITALS: PULSE 72
[2024-12-10 06:35] LABS: Glucose Point of Care 134 mg/dL (70-110)
[2024-12-10 07:30] VITALS: BP 141/68; PULSE 69; RESP 16; TEMP 36.8; O2SAT 95
[2024-12-10] MEDS: propranolol 20 mg Tablet 10 MG PO ×2 (08:34→17:51)
[2024-12-10] MEDS: aspirin 81 mg EC Tablet PO (08:34)
[2024-12-10] MEDS: lactulose oral liq 20 gm/30 mL UDC 30 GM PO (08:35)
--- NOTE | 2024-12-10 08:49 | XR_ITS ---
WS: [id number] XR chest 1V portable [id number] REASON FOR EXAM: Pain FINDINGS: The chest is unchanged compared to 12/08/2024. Moderate tortuosity and ectasia of the thoracic aorta. Cardiomegaly. Aortic stent graft valve replacement. Chronic blunting of the right costophrenic angle and pleural thickening. XR/XR chest 1V portable [id number] IMPRESSION: No acute or subacute chest abnormality. Chest stable compared to 12/08/2024.
[2024-12-10 09:27] LABS: Basophils # 0.1 10^3/uL (0.0-0.1); Basophils % 0.6 %; Eosinophils # 0.6 10^3/uL (0.0-0.8); Eosinophils % 5.2 %; Hematocrit 35.1 % (37-53); Lymphocytes # 1.2 10^3/uL (0.8-4.8); Lymphocytes % 10.5 %; Mean Corpuscular HGB Conc 32.5 g/dL (30-55); Mean Corpuscular Hemoglobin 33.7 pg (27-33); Mean Corpuscular Volume 103.8 fl (82-101); Mean Platelet Volume 12.2 fL (7.4-10.4); Monocytes # 0.9 10^3/uL (0.2-0.9); Monocytes % 7.7 %; Neutrophils # 8.51 10^3/uL (1.8-7.7); Neutrophils % 75.7 %; Nucleated Red Blood Cells % 0 %; Platelet Count 62 10^3/cmm (157-399); Red Blood Count 3.38 10^6/uL (3.85-5.65); Red Cell Distribution Width 14.2 % (12.1-15.1); White Blood Count 11.24 10^3/uL (3.29-11.43)
[2024-12-10 09:43] LABS: Anion Gap 13.9 (5-19); Blood Urea Nitrogen 35 mg/dL (8-23); Calcium 8.1 mg/dL (8.5-10.5); Carbon Dioxide 20 mmol/L (22-29); Chloride 109 mmol/L (98-107); Creatinine Clr Calc Pharmacy 43.5825; Glomerular Filtration Rate 35.4 mL/min (90-130); Glucose 235 mg/dL (65-115); Phosphorus 3.6 mg/dL (2.5-4.5); Potassium 4.9 mmol/L (3.5-5.1); Sodium 138 mmol/L (136-145)
--- NOTE | 2024-12-10 10:09 | PC.CHAP ---
Pastoral Care Encounter/Spiritual Assessment Type of Contact [] Declined inside sales account executive visit [] Patient/Family/Request visit [] Outpatient visit [] Follow-up visit [] Physician referral [] Code/Alert [x] Routine visit [] Staff referral [] Actively dying [] Patient sleeping [] Family support [] [] Out of room [] Palliative care [] [] Receiving care in room [] Pre-surgical visit [] Trauma [] Long length of stay [] ICU visit [] Other: Relational/Emotional Strength [] Patient feels connected with others/family/visitors/staff [] Distress [] Loneliness/isolation [] Abandonment Spirituality of Patient [x] Person of Olya [] Attends Congregation of their Olya [x] Believes in Prayer [] Reads Bible or Zoroastrianism materials [] There are Spiritual issues to be addressed Figurine Maker Interventions [x] Prayer [x] Active listening [] Non-anxious presence [] Spiritual/emotional support [] Crisis/trauma care [] Spiritual counseling [] Bereavement support [] Provided bereavement packet [x] Provided Bible/devotional materials [] Provided toy/stuffed animal, coloring book to patient or family member [] Provided Communion [] Anointing/[place] [] Salvation [x] Completed spiritual assessment [] Other: Impact on Illness or Injury [] Angry [] Fearful [] Anxious [] Often cries [] Exhaustion [] Unable to work [] Unable to attend religious [] Unable to walk/stand [] Unable to read [] Unable to drive [] Unable to eat/drink [] Unable to sleep [] Unable to be with family [] Patient intubated [] Other: Summary Time spent with patient 5 min
[2024-12-10 11:18] VITALS: BP 134/63; PULSE 65; RESP 16; TEMP 36.8; O2SAT 97
[2024-12-10 11:31] LABS: Glucose Point of Care 288 mg/dL (70-110)
[2024-12-10] MEDS: insulin lispro 100 unit/1 mL SUBCUT ×2 (11:46→17:51)
[2024-12-10] MEDS: lactated ringers 1,000 ML 75 ML IV (11:47)
[2024-12-10] MEDS: sodium polystyrene sulfonate 15 gm/60 mL Btl 30 GM PO (13:36)
[2024-12-10 15:17] VITALS: BP 150/68; PULSE 67; RESP 16; TEMP 37; O2SAT 98
[2024-12-10 16:42] LABS: Albumin Level 2.1 g/dL (3.5-5.2); Blood Urea Nitrogen 37 mg/dL (8-23); Calcium 8.4 mg/dL (8.5-10.5); Carbon Dioxide 20 mmol/L (22-29); Chloride 112 mmol/L (98-107); Creatinine Clr Calc Pharmacy 46.0038; Glomerular Filtration Rate 37.7 mL/min (90-130); Glucose 170 mg/dL (65-115); Phosphorus 3.6 mg/dL (2.5-4.5); Sodium 142 mmol/L (136-145)
[2024-12-10 16:53] LABS: Glucose Point of Care 194 mg/dL (70-110)
[2024-12-10 16:58] LABS: Anion Gap 14.8 (5-19); Potassium 4.8 mmol/L (3.5-5.1)
--- NOTE | 2024-12-10 17:40 | PM.DCS ---
Discharge Providers Date of Admission: 12/08/24 22:09 Date of Discharge: December 10, 2024 Attending Provider at Admission: Colin Lees MD Attending Provider at Discharge: Lorraine Coulter MD Primary Care Provider: Bridger Alfred MD Diagnoses at Discharge Discharge Diagnosis (1) Acute hyperkalemia: Status: Acute (2) CKD (chronic kidney disease): Status: Chronic (3) Cirrhosis of liver: Status: Acute (4) History of transcatheter aortic valve replacement (TAVR): Status: Acute Permanent problem details: 08/2024 Reason for Visit Reason for Visit: dr Ngo Because of Labs Hospital Course Hospital Course In summary, Mr Saúl Farias is a 69 year old male with a past medical history significant for liver cirrhosis, coronary artery disease, diabetes mellitus, depression, and multiple other comorbidities who presented for further evaluation of abnormal labs-hyperkalemia in the setting of spironolactone use. In the emergency department, repeat labs showed potassium of 5.7. There were EKG changes with peaking of T waves. He was treated pharmacologically and with IV fluids. He was admitted for further evaluation and management. Patient received medical management for hyperkalemia -IV fluids, calcium gluconate , Kayexalate and had improvement in his potassium level. Spironolactone was held and was discontinued at discharge. He will follow with his PCP and tobacco prizer to discuss when and if he needs to resume the medication. Patient also needs repeat renal function panel within 1 week. Physical Exam Narrative: General: Awake, alert, no acute distress Head: Normocephalic, atraumatic Neck: No JVD. Cardiovascular: S1-S2, RRR. No gallops. No murmurs. Lungs: Clear to auscultation, no crackles or wheezes. Skin: No jaundice. No rashes. Abdomen: Normal bowel sounds, abdomen soft and nontender. Extremities: No cyanosis or clubbing. Musculoskeletal: No erythematous joints. Neurological: No gross focal deficits Discharge Data Studies Completed and Pending Completed Studies During Hospitalization Category Date Time Status XR chest 1V portable [id number] Routine Exams 12/10/24 08:49 Completed XR chest 1V portable [id number] Stat Exams 12/08/24 20:37 Completed Radiology Impressions Chest X-Ray 12/10/24 08:49 IMPRESSION: No acute or subacute chest abnormality. Chest stable compared to 12/08/2024. Laboratory Results WBC 11.24 10^3/uL (3.29-11.43) 12/10/24 09:18 RBC 3.38 10^6/uL (3.85-5.65) L 12/10/24 09:18 Hgb 11.40 g/dL (11.27-16.99) 12/10/24 09:18 Hct 35.1 % (37-53) L 12/10/24 09:18 MCV 103.8 fl (82-101) H 12/10/24 09:18 MCH 33.7 pg (27-33) H 12/10/24 09:18 MCHC 32.5 g/dL (30-55) 12/10/24 09:18 RDW 14.2 % (12.1-15.1) 12/10/24 09:18 Plt Count 62 10^3/cmm (157-399) L 12/10/24 09:18 MPV 12.2 fL (7.4-10.4) H 12/10/24 09:18 Neut % (Auto) 75.7 % 12/10/24 09:18 Lymph % (Auto) 10.5 % 12/10/24 09:18 [place] % (Auto) 7.7 % 12/10/24 09:18 Eos % (Auto) 5.2 % 12/10/24 09:18 Baso % (Auto) 0.6 % 12/10/24 09:18 Neut # (Auto) 8.51 10^3/uL (1.8-7.7) H 12/10/24 09:18 Lymph # (Auto) 1.2 10^3/uL (0.8-4.8) 12/10/24 09:18 [place] # (Auto) 0.9 10^3/uL (0.2-0.9) 12/10/24 09:18 Eos # (Auto) 0.6 10^3/uL (0.0-0.8) 12/10/24 09:18 Baso # (Auto) 0.1 10^3/uL (0.0-0.1) 12/10/24 09:18 Nucleated RBC % (auto) 0 % 12/10/24 09:18 Nucleated RBCs # 0.0 /100WBC 12/10/24 09:18 Sodium 142 mmol/L (136-145) 12/10/24 16:00 Potassium 4.8 mmol/L (3.5-5.1) 12/10/24 16:00 Chloride 112 mmol/L (98-107) H 12/10/24 16:00 Carbon Dioxide 20 mmol/L (22-29) L 12/10/24 16:00 Anion Gap 14.8 (5-19) 12/10/24 16:00 BUN 37 mg/dL (8-23) H 12/10/24 16:00 Creatinine 1.8 mg/dL (0.7-1.2) H 12/10/24 16:00 GFR Calculation 37.7 mL/min (90-130) L 12/10/24 16:00 Glucose 170 mg/dL (65-115) H 12/10/24 16:00 POC Glucose 194 mg/dL (70-110) H 12/10/24 16:49 Calculated Osmolality 301 mOsm/kg (285-295) H 12/09/24 12:48 Calcium 8.4 mg/dL (8.5-10.5) L 12/10/24 16:00 Phosphorus 3.6 mg/dL (2.5-4.5) 12/10/24 16:00 Magnesium 1.8 mg/dL (1.7-2.3) 12/09/24 03:06 Total Bilirubin 1.2 mg/dL (0.15-1.2) 12/09/24 03:06 AST 50 U/L (0-40) H 12/09/24 03:06 ALT 25 U/L (0-41) 12/09/24 03:06 Alkaline Phosphatase 66 U/L (40-130) 12/09/24 03:06 Ammonia 95 umol/L (16-60) H 12/08/24 22:35 Total Protein 5.2 g/dL (6.6-8.7) L 12/09/24 03:06 Albumin 2.1 g/dL (3.5-5.2) L 12/10/24 16:00 Globulin 3.2 g/dL (1.3-4.6) 12/09/24 03:06 Vitals Last Vital Signs Temp 98.6 F 12/10/24 15:17 Pulse 67 12/10/24 15:17 Resp 16 12/10/24 15:17 BP 150/68 12/10/24 15:17 Pulse Ox 98 12/10/24 15:17 O2 Del Method Room Air 12/10/24 15:17 Discharge Plan Discharge Patient Disposition: Home Condition: Stable Prescriptions: Continued glimepiride 2 mg tablet 2 mg PO QAM Qty: 90 3RF ondansetron 4 mg tablet,disintegrating 4 mg PO Q6H PRN (Reason: nausea and vomiting) Qty: 30 11RF aspirin [Adult Aspirin Regimen] 81 mg tablet,delayed release (DR/EC) 81 mg PO DAILY Qty: 30 0RF lactulose [Constulose] 10 gram/15 mL solution 45 ml PO TID trazodone 100 mg tablet 100 mg PO DAILY Qty: 30 11RF Multivitamin 50 Plus Tablet 1 tab PO QAM vitamin B complex Tablet 1 tab PO QAM Fiber Gummies 2 gram Tablet,Chewable 6 g PO DAILY Calcium With Vit D Gummies 2 tab PO DAILY Vitamin B 12 Gummies 2 tab PO DAILY Vitamin C Gummies 2 tab PO DAILY propranolol 10 mg tablet 10 mg PO BID Rx Instructions: TAKE 1 TABLET BY MOUTH TWICE DAILY Discontinued spironolactone 25 mg tablet 25 mg PO DAILY Qty: 30 11RF Discharge Orders: Discharge Order (Routine); Ordered 12/10/24 Ordered By: Lorraine Coulter Other Ambulatory Orders: Renal Function Panel (Routine) Timeframe: 1 Week Facility: [facility] - Location: Lab - Main Lab Ordered By: Lorraine Coulter Referrals: Bridger Alfred MD [Primary Care Provider, Family Practice] - 1 week Referral Note: We have notified your physician's clinic of the need for a follow-up appointment to be scheduled. If you have not heard from them within the next 2 business days, please call them directly. Discharge Diet: Advance as tolerated Discharge Activity: Increase activity as tolerated Patient Instructions: Opioid Safety Activity Restrictions/Additional Instructions: Check renal function panel within 1 week and send results to your primary care provider Discharge Attestations Time Spent in Discharge Care*: less than 30 min Quality Metrics Clinical Quality Measures [ No reported AMI, CVA or VTE this stay] Coding Level of Care Code Acute Code for Chg Fwd Diagnoses Acute hyperkalemia E87.5 CKD (chronic kidney disease) N18.9 Cirrhosis of liver K74.60 History of transcatheter aortic valve replacement (TAVR) Z95.2
== END 2024-12-10 18:11 | disposition home or self-care (01) ==
LOC: ER 22:34 → ER IP 22:50 → MEDSURG 12-09 03:05
PROVIDERS: Family Medicine; Internal Medicine; Admitting Provider Internal Medicine; Emergency Provider Emergency Medicine; PCP Family Medicine; Visit Provider Student in an Organized Health Care Education/Training Program
DX: E87.5 Hyperkalemia (principal); K74.60 Unspecified cirrhosis of liver; Z95.2 Presence of prosthetic heart valve; Z79.82 Long term (current) use of aspirin; E11.22 Type 2 diabetes mellitus with diabetic chronic kidney disease; N18.9 Chronic kidney disease, unspecified; I25.10 Atherosclerotic heart disease of native coronary artery without angina pectoris; R01.1 Cardiac murmur, unspecified; Z82.49 Family history of ischemic heart disease and other diseases of the circulatory system; Z83.3 Family history of diabetes mellitus
CPT/HCPCS: 36415; 36416; 71045; 80048; 80053; 80069; 82140; 82962; 83735; 85025; 93005; 96365; 96372; 96375; 96376; 99285; G0378; J0612; J1815; J2405; J3490; J7030; J7060; J7120; J9999

== ENCOUNTER → 2024-12-16 09:14 | Outpatient (BNVA) | payer MEDICARE, SELFPAY | PROVIDERS: PCP Family Medicine; Visit Provider Family Medicine | DX: K74.60 Unspecified cirrhosis of liver (principal) | CPT/HCPCS: 80048 ==

== ENCOUNTER → 2024-12-23 10:13 | Outpatient (BNVA) | payer MEDICARE, SELFPAY | PROVIDERS: PCP Family Medicine; Visit Provider Family Medicine | DX: N18.9 Chronic kidney disease, unspecified (principal) | CPT/HCPCS: 80048 ==

== ENCOUNTER → 2024-12-29 11:44 | Outpatient (BNVA) | payer MEDICARE, SELFPAY | PROVIDERS: PCP Family Medicine; Visit Provider Family Medicine | DX: E87.5 Hyperkalemia (principal) | CPT/HCPCS: 80048 ==

== ENCOUNTER → 2025-01-07 09:02 | Outpatient (BNVA) | payer MEDICARE, SELFPAY | PROVIDERS: PCP Family Medicine; Visit Provider Family Medicine | DX: E11.9 Type 2 diabetes mellitus without complications (principal); K74.60 Unspecified cirrhosis of liver; N17.9 Acute kidney failure, unspecified | CPT/HCPCS: 80048; 83735 ==

== ENCOUNTER → 2025-02-08 14:46 | Outpatient (BNVA) | payer MEDICARE, SELFPAY | PROVIDERS: PCP Family Medicine; Visit Provider Family Medicine | DX: K74.60 Unspecified cirrhosis of liver (principal); N18.9 Chronic kidney disease, unspecified; E87.5 Hyperkalemia | CPT/HCPCS: 80053; 85025 ==

== ENCOUNTER → 2025-04-12 14:41 | Outpatient (BNVA) | payer MEDICARE, SELFPAY | PROVIDERS: PCP Family Medicine; Visit Provider Family Medicine | DX: K74.60 Unspecified cirrhosis of liver (principal) | CPT/HCPCS: 80053 ==

== ENCOUNTER → 2025-04-19 11:52 | Outpatient (BNVA) | payer MEDICARE, SELFPAY | PROVIDERS: PCP Family Medicine; Visit Provider Family Medicine | DX: N18.9 Chronic kidney disease, unspecified (principal) | CPT/HCPCS: 80048 ==

== ENCOUNTER 2025-06-23 11:04 | Emergency (ER) | payer MEDICARE, SELFPAY ==
[2025-06-23 11:05] VITALS: BP 125/62; PULSE 68; RESP 18; TEMP 36.5; O2SAT 98; BMI 34.2
--- NOTE | 2025-06-23 11:30 | XR_ITS ---
WS: [id number] XR chest 1V portable [id number] REASON FOR EXAM: confusion FINDINGS: The chest is relatively unchanged compared to 12/10/2024. Aortic valve stent graft. Significant tortuosity and ectasia of the thoracic aorta. Cardiomegaly. There is blunting of the right costophrenic angle which appears to be chronic. There is obscuration of both hemidiaphragmatic contours which may indicate atelectasis or other airspace consolidation. These areas will be seen on the scheduled CT of the abdomen and pelvis. XR/XR chest 1V portable [id number] IMPRESSION: Stable abnormal chest as above.
--- NOTE | 2025-06-23 11:30 | CTR_ITS ---
PROCEDURE INFORMATION: Exam: CT Head Without Contrast Exam date and time: 06/23/2025 12:58 PM Age: 70 years old Clinical indication: Altered mental status/memory loss; Confusion or disorientation TECHNIQUE: Imaging protocol: Computed tomography of the head without contrast. Radiation optimization: All CT scans at this facility use at least one of these dose optimization techniques: automated exposure control; mA and/or kV adjustment per patient size (includes targeted exams where dose is matched to clinical indication); or iterative reconstruction. COMPARISON: CT head wo con* [id number] 07/17/2023 11:17 AM RADIATION DOSE METRICS: Total DLP (mGy-cm): 1153.44 FINDINGS: Brain: There are bilateral periventricular white matter and centrum semiovale hypodensities, consistent with chronic ischemic small vessel disease. Age related diffuse parenchymal volume loss. No recent infarct, intracranial bleed or mass effect. Old lacunar infarct in the left basal ganglia. Mineralization of bilateral basal ganglia, age-related. Cerebral ventricles: Ex vacuo dilatation of the ventricles. Paranasal sinuses: Visualized sinuses are unremarkable. No fluid levels. Mastoid air cells: Visualized mastoid air cells are well aerated. Bones: Unremarkable. No acute fracture. Soft tissues: Unremarkable. CT/CT head wo con* [id number] IMPRESSION: No large territorial infarct or intracranial bleed.
--- NOTE | 2025-06-23 11:31 | W.ED.AMS ---
HPI - Altered Mental Status General: Chief Complaint: Altered Mental Status Stated Complaint: n/v, brain fog Time Seen by Provider: 06/23/25 11:18 Source: patient and family Mode of arrival: ambulatory Limitations: no limitations History of Present Illness: 70-year-old male who has a history of cirrhosis states that he has had increased vomiting over the last 2 days. Family states that he has had issues with vomiting due to his diabetes meds. States that he had frequent vomiting last 2 days ago and has had some slight confusion as well. Patient here is answer my questions appropriately does appear to be slow to respond has had hepatic encephalopathy in the past he states that he has been vomiting up his lactulose as well. No slurred speech or focal deficits Related Data Home Medications ?Medication ?Instructions ?Recorded ?Confirmed Calcium With Vit D Gummies 2 tab PO DAILY 07/17/23 06/23/25 Vitamin B 12 Gummies 2 tab PO DAILY 07/17/23 06/23/25 Vitamin C Gummies 2 tab PO DAILY 07/17/23 06/23/25 inulin 2 gram chewable tablet 6 g PO DAILY 07/17/23 06/23/25 (Fiber Gummies) vitamin B complex 1 tab PO QAM 07/17/23 06/23/25 lactulose 10 gram/15 mL oral 45 ml PO TID 10/29/24 06/23/25 solution (Constulose) amino acids 1 tab PO DAILY 06/23/25 06/23/25 magnesium 200 mg tablet 200 mg PO DAILY 06/23/25 06/23/25 milk thistle 500 mg capsule 500 mg PO DAILY 06/23/25 06/23/25 propranolol 10 mg tablet 10 mg PO BID 06/23/25 06/23/25 rifaximin 550 mg tablet (Xifaxan) 550 mg PO BID 06/23/25 06/23/25 spironolactone 25 mg tablet 25 mg PO .MON. AND FRI. 06/23/25 06/23/25 trazodone 100 mg tablet 100 mg PO BEDTIME 06/23/25 06/23/25 Previous Rx's ?Medication ?Instructions ?Recorded aspirin 81 mg tablet,delayed 81 mg PO DAILY #30 tabs 08/25/24 release (Adult Aspirin Regimen) ondansetron 4 mg disintegrating 4 mg PO Q6H PRN nausea and 10/28/24 tablet vomiting #30 tabs blood-glucose sensor (FreeStyle #1 ea 12/29/24 Justo 3 Sensor device) blood-glucose,radio host,cont #1 ea 12/29/24 (FreeStyle Justo 3 [place]) furosemide 40 mg tablet 40 mg PO QDAY #30 tabs 01/14/25 glimepiride 1 mg tablet 0.5 mg (1/2 x 1 mg) PO DAILY #30 05/20/25 tabs blood sugar diagnostic (OneTouch #100 ea 06/18/25 Verio test strips) ondansetron 4 mg disintegrating 4 mg PO Q6H PRN nausea and 06/23/25 tablet vomiting #14 tabs Allergies Allergy/AdvReac Type Severity Reaction Status Date / Time No Known Allergies Allergy Verified 12/08/24 20:59 PFSH ED PFSH: Medical History (Updated 06/23/25 @ 13:29 by Nayely Lara MD) Coronary artery disease 07/22/24 angiogram - PDA 80% stenosis; Distal RCA moderate stenosis; LAD mid 80% stenosis - no stents, just monitoring. History of transcatheter aortic valve replacement (TAVR) 08/2024 Aortic stenosis TAVR done 08/2024. Heart murmur Diabetes mellitus Cirrhosis of liver Depression Colon polyps Esophageal varices Macronodular cirrhosis H/O renal calculi Diabetes mellitus Surgical History Status post colonoscopy with polypectomy (08/16/21) Status post colonoscopy with polypectomy (06/07/20) H/O esophagogastroduodenoscopy (06/07/20) Status post laparoscopic cholecystectomy (04/20/20) with liver biopsy H/O circumcision H/O vasectomy H/O umbilical hernia repair H/O skin graft left foot Family History Other CAD (coronary artery disease) Cancer Diabetes Hypertension Denies family history of Anesthesia complication Bleeding disorder Social History Smoking and tobacco/nicotine status: never used tobacco/nicotine Alcohol intake: never Substance/Drug Use: never Household members: spouse Marital status: Current occupational status: retired Physical Exam Const: COMMON NORMALS: patient oriented x3 HENMT: COMMON NORMALS: normocephalic and atraumatic HEAD & SCALP: normocephalic and atraumatic Eye: COMMON NORMALS: Equal, round and reactive pupils present and EOMs intact bilaterally PUPIL: Yes Equal, round and reactive pupils present Neck/C-Spine: COMMON NORMALS: full ROM and supple Chest: COMMONS NORMALS: normal inspection of the chest and normal palpation of entire chest wall Resp: COMMON NORMALS: normal respiratory effort, No retractions, No use of accessory muscles and clear to auscultation bilaterally AUSCULTATION: clear to auscultation bilaterally Cardio: COMMON NORMALS: regular rate, regular rhythm and No murmurs present (Cardio) RATE: regular rate RHYTHM: regular rhythm GI: COMMON NORMALS: Normal to inspection, nondistended, normoactive bowel sounds present, Soft to palpation, non-tender and no masses PALPATION: Yes Soft to palpation Extremity: COMMON NORMALS: normal to inspection and full ROM Neuro: COMMON NORMALS: patient oriented x3, moves all extremities and no focal motor deficits Psych: COMMON NORMALS: mental status grossly normal, Normal thought process present and cooperative THOUGHT PROCESS: Normal thought process present Skin: COMMON NORMALS: no rashes or lesions noted and no wounds GENERAL SKIN EXAM: no rashes or lesions noted Course Vital Signs: Vital signs: Vital Signs Temperature 97.7 F 06/23/25 11:05 Pulse Rate 60 06/23/25 13:31 Respiratory Rate 18 06/23/25 13:00 Blood Pressure 152/58 06/23/25 13:31 Pulse Oximetry 99 06/23/25 13:31 Oxygen Delivery Me thod Room Air 06/23/25 13:00 MDM - Altered Mental Status Medical Decision Making Patient presents for nausea and vomiting along with some slight confusion. Differential includes small bowel obstruction, hepatic encephalopathy, infection, CVA. Patient's neuroexam here was normal no signs of stroke. Head CT here showed no acute abnormalities. I did interpret his EKG showed sinus bradycardia heart rate [address] elevation QRS 110 QTc 436. His white count here was normal did review his other labs no signs of acute infection does have an of elevated ammonia likely not to taking his lactulose. Did have a long discussion with family along with patient I did recommend admission for his elevated ammonia. Patient does have decision-making capacity is able answer all questions family and him both want to go home did give him a dose of lactulose here will prescribe him Zofran for his vomiting he is to continue take his lactulose informed him to return if worsening they understand agree to plan. Medical Records I reviewed the patient's medical records. Lab Data I reviewed the patient's lab results. 06/23/25 11:39 06/23/25 11:39 Radiology Impressions Chest X-Ray 06/23/25 11:30 IMPRESSION: Stable abnormal chest as above. Head CT 06/23/25 11:30 IMPRESSION: No large territorial infarct or intracranial bleed. Laboratory Results WBC 6.05 10^3/uL (3.29-11.43) 06/23/25 11:39 RBC 3.19 10^6/uL (3.85-5.65) L 06/23/25 11:39 Hgb 10.90 g/dL (11.27-16.99) L 06/23/25 11:39 Hct 32.6 % (37-53) L 06/23/25 11:39 MCV 102.2 fl (82-101) H 06/23/25 11:39 MCH 34.2 pg (27-33) H 06/23/25 11:39 MCHC 33.4 g/dL (30-55) 06/23/25 11:39 RDW 15.1 % (12.1-15.1) 06/23/25 11:39 Plt Count 64 10^3/cmm (157-399) L 06/23/25 11:39 MPV 11.5 fL (7.4-10.4) H 06/23/25 11:39 Neut % (Auto) 60.2 % 06/23/25 11:39 Lymph % (Auto) 21.2 % 06/23/25 11:39 [place] % (Auto) 8.3 % 06/23/25 11:39 Eos % (Auto) 9.3 % 06/23/25 11:39 Baso % (Auto) 0.8 % 06/23/25 11:39 Neut # (Auto) 3.65 10^3/uL (1.8-7.7) 06/23/25 11:39 Lymph # (Auto) 1.3 10^3/uL (0.8-4.8) 06/23/25 11:39 [place] # (Auto) 0.5 10^3/uL (0.2-0.9) 06/23/25 11:39 Eos # (Auto) 0.6 10^3/uL (0.0-0.8) 06/23/25 11:39 Baso # (Auto) 0.1 10^3/uL (0.0-0.1) 06/23/25 11:39 Nucleated RBC % (auto) 0 % 06/23/25 11:39 Nucleated RBCs # 0.0 /100WBC 06/23/25 11:39 Sodium 140 mmol/L (136-145) 06/23/25 11:39 Potassium 5.0 mmol/L (3.5-5.1) 06/23/25 11:39 Chloride 107 mmol/L (98-107) 06/23/25 11:39 Carbon Dioxide 27 mmol/L (22-29) 06/23/25 11:39 Anion Gap 11.0 (5-19) 06/23/25 11:39 BUN 42 mg/dL (8-23) H 06/23/25 11:39 Creatinine 2.6 mg/dL (0.7-1.2) H 06/23/25 11:39 GFR Calculation 24.6 mL/min (90-130) L 06/23/25 11:39 Glucose 305 mg/dL (65-115) H 06/23/25 11:39 Calculated Osmolality 312 mOsm/kg (285-295) H 06/23/25 11:39 Calcium 8.6 mg/dL (8.5-10.5) 06/23/25 11:39 Magnesium 2.2 mg/dL (1.7-2.3) 06/23/25 11:39 Total Bilirubin 1.6 mg/dL (0.15-1.2) H 06/23/25 11:39 AST 41 U/L (0-40) H 06/23/25 11:39 ALT 21 U/L (0-41) 06/23/25 11:39 Alkaline Phosphatase 105 U/L (40-130) 06/23/25 11:39 Ammonia 149 umol/L (16-60) H 06/23/25 11:39 Total Protein 5.2 g/dL (6.6-8.7) L 06/23/25 11:39 Albumin 2.1 g/dL (3.5-5.2) L 06/23/25 11:39 Globulin 3.1 g/dL (1.3-4.6) 06/23/25 11:39 Lipase 101 U/L (13-60) H 06/23/25 11:39 Urine Color Dark yellow (Yellow) A 06/23/25 12:26 Urine Appearance Cloudy (CLEAR) A 06/23/25 12:26 Urine pH 5.5 (5-7) 06/23/25 12:26 Ur Specific [place] 1.017 (1.005-1.030) 06/23/25 12:26 Urine Protein 3+ (Negative) A 06/23/25 12:26 Urine Glucose (UA) Negative (Normal) 06/23/25 12:26 Urine Ketones Trace (Negative) 06/23/25 12:26 Urine Blood 3+ (Negative) A 06/23/25 12:26 Urine Nitrate Negative (Negative) 06/23/25 12:26 Urine Bilirubin 1+ (Negative) H 06/23/25 12:26 Urine Urobilinogen 1.0 mg/dL (Negative) 06/23/25 12:26 Ur Leukocyte Esterase Negative (Negative) 06/23/25 12:26 Urine RBC >100 /hpf (0-2) H 06/23/25 12:26 Urine WBC 6-10 /hpf (0-5) 06/23/25 12:26 Ur Squamous Epith Cells 0-5 /hpf (0-5) 06/23/25 12:26 Amorphous Sediment Not Reportable 06/23/25 12:26 Urine Bacteria Trace /hpf (NONE) 06/23/25 12:26 Hyaline Casts 14.87 /lpf 06/23/25 12:26 Urine Yeast Trace /hpf 06/23/25 12:26 All radiology interpretation(s) finalized by discharge EKG Data EKG 1: I personally reviewed and interpreted this EKG as follows: EKG interpretation date: 06/23/25 EKG interpretation time: 12:26 Interpretation: sinus shilpi hr [address] elevation qrs 110 qtc 436 Discharge Plan Discharge Patient Disposition: Home Clinical Impression: Cirrhosis of liver, Vomiting Condition: Stable Prescriptions: New ondansetron 4 mg tablet,disintegrating 4 mg PO Q6H PRN (Reason: nausea and vomiting) Qty: 14 0RF No Action ondansetron 4 mg tablet,disintegrating 4 mg PO Q6H PRN (Reason: nausea and vomiting) Qty: 30 11RF (DME) FreeStyle Justo 3 Sensor Device See Rx Instructions .Route Qty: 1 11RF Rx Instructions: As directed (DME) FreeStyle Justo 3 [place] Misc See Rx Instructions .Route Qty: 1 11RF Rx Instructions: As directed furosemide 40 mg tablet 40 mg PO QDAY Qty: 30 11RF glimepiride 1 mg tablet 0.5 mg PO DAILY Qty: 30 11RF aspirin [Adult Aspirin Regimen] 81 mg tablet,delayed release (DR/EC) 81 mg PO DAILY Qty: 30 0RF lactulose [Constulose] 10 gram/15 mL solution 45 ml PO TID (DME) OneTouch Verio test strips Strip See Rx Instructions .Route Qty: 100 11RF Rx Instructions: As directed; bid vitamin B complex Tablet 1 tab PO QAM Fiber Gummies 2 gram Tablet,Chewable 6 g PO DAILY Calcium With Vit D Gummies 2 tab PO DAILY Vitamin B 12 Gummies 2 tab PO DAILY Vitamin C Gummies 2 tab PO DAILY milk thistle 500 mg Capsule 500 mg PO DAILY Rx Instructions: give with meal/snack L-Ornithine Tablet 1 tab PO DAILY magnesium 200 mg Tablet 200 mg PO DAILY Xifaxan 550 mg Tablet 550 mg PO BID spironolactone 25 mg tablet 25 mg PO .MON. AND FRI. propranolol 10 mg tablet 10 mg PO BID trazodone 100 mg tablet 100 mg PO BEDTIME Discharge Orders: Discharge ED (Routine); Ordered 06/23/25 Ordered By: Nayely Lara Referrals: Bridger Alfred MD [Primary Care Provider, Family Practice] - 4-7 days Discharge Diet: Advance as tolerated Discharge Activity: Resume usual activity Patient Instructions: Hepatic Encephalopathy (DC), Acute Nausea and Vomiting (ED) Print Language: Pashto Coding Level of Care Code ED Crm Specialist for Poli Valadez
[2025-06-23 11:45] LABS: Hematocrit 32.6 % (37-53); Hemoglobin 10.90 g/dL (11.27-16.99); Mean Corpuscular HGB Conc 33.4 g/dL (30-55); Mean Corpuscular Hemoglobin 34.2 pg (27-33); Mean Corpuscular Volume 102.2 fl (82-101); Nucleated Red Blood Cells % 0 %; Platelet Count 64 10^3/cmm (157-399); Red Blood Count 3.19 10^6/uL (3.85-5.65); White Blood Count 6.05 10^3/uL (3.29-11.43)
[2025-06-23 12:12] LABS: Alanine Aminotransferase 21 U/L (0-41); Albumin Level 2.1 g/dL (3.5-5.2); Alkaline Phosphatase 105 U/L (40-130); Anion Gap 11.0 (5-19); Aspartate Amino Transferase 41 U/L (0-40); Blood Urea Nitrogen 42 mg/dL (8-23); Calcium 8.6 mg/dL (8.5-10.5); Carbon Dioxide 27 mmol/L (22-29); Chloride 107 mmol/L (98-107); Globulin 3.1 g/dL (1.3-4.6); Glucose 305 mg/dL (65-115); Lipase 101 U/L (13-60); Magnesium 2.2 mg/dL (1.7-2.3); Osmolality Calculated 312 mOsm/kg (285-295); Potassium 5.0 mmol/L (3.5-5.1); Sodium 140 mmol/L (136-145); Total Protein 5.2 g/dL (6.6-8.7)
[2025-06-23 12:13] LABS: Ammonia 149 umol/L (16-60)
[2025-06-23] MEDS: ondansetron 2 mg/ML SDV 2 mL 4 MG IVP (12:13)
--- NOTE | 2025-06-23 12:26 | ECG_ITS ---
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 Measurements Intervals [place] Rate: 59 P: 5 GA: 182 QRS: 17 QRSD: 110 T: 71 QT: 438 QTc: 434 Interpretive Statements SINUS BRADYCARDIA NONSPECIFIC T-WAVE ABNORMALITY Compared to ECG 12/08/2024 20:55:03 T-wave abnormality now present ST (T wave) deviation no longer present Electronically Signed On 06-23-2025 23:56:37 CORRESPONDENCE SECTION SUPERVISOR by Jose De Jesus Mckeon M.D. [email or web address]
[2025-06-23 12:38] LABS: Glucose Urine UA Negative (Normal); Nitrate Urine Negative (Negative); Specific Gravity, Urine 1.017 (1.005-1.030)
[2025-06-23 12:40] LABS: Add Urine Microscopic? YES
[2025-06-23 12:56] LABS: UA Slide Review UA Slide Review Perf
[2025-06-23 13:00] VITALS: BP 142/48; PULSE 60; RESP 18; O2SAT 100
[2025-06-23 13:31] VITALS: BP 152/58; PULSE 60; O2SAT 99
[2025-06-23] MEDS: lactulose oral liq 20 gm/30 mL UDC 30 GM PO (13:41)
== END 2025-06-23 13:48 | disposition home or self-care (01) ==
PROVIDERS: Emergency Provider Emergency Medicine; PCP Family Medicine
DX: K74.60 Unspecified cirrhosis of liver (principal); R11.10 Vomiting, unspecified; Z79.82 Long term (current) use of aspirin; I25.10 Atherosclerotic heart disease of native coronary artery without angina pectoris; E11.9 Type 2 diabetes mellitus without complications
CPT/HCPCS: 36415; 70450; 71045; 80053; 81001; 82140; 83690; 83735; 85025; 87086; 93005; 96374; 99285; J2405; J9999

== ENCOUNTER → 2025-07-06 10:04 | Outpatient (BNVA) | payer MEDICARE, SELFPAY | PROVIDERS: PCP Family Medicine; Visit Provider Internal Medicine | DX: I35.0 Nonrheumatic aortic (valve) stenosis (principal); F32.A Depression, unspecified; K74.60 Unspecified cirrhosis of liver; Z95.2 Presence of prosthetic heart valve; Z87.891 Personal history of nicotine dependence | CPT/HCPCS: 99214 ==